=== PATIENT | male | born 1970 | race African-American/Black ===

== ENCOUNTER → 2016-10-01 | Outpatient (CLI) | payer OTHER ==
[2016-10-01 10:37] LABS: Basophils % (A) 1 %; CH 32.3; CHCM 33.5; Eosinophils # (A) 0.1 k/uL (0-0.7); Eosinophils % (A) 4 %; HCT 43.9 % (39.0-53.0); HDW 2.64; HGB 14.8 gm/dL (13.0-17.5); Luc # (Auto) 0.11; Luc % (Auto) 3; Lymphocytes # (A) 1.4 k/uL (1.0-4.8); Lymphocytes % (A) 37 %; MCH 32.6 pg (25.0-35.0); MCHC 33.6 g/dL (31.0-37.0); MCV 97.1 fL (80.0-100.0); Mean Platelet Volume 7.1; Monocytes # (A) 0.3 k/uL (0-1.0); Monocytes % (A) 7 %; Neutrophils # (A) 1.9 k/uL (1.3-7.7); Neutrophils % (A) 48 %; RBC 4.53 m/uL (4.30-5.90); RDW 13.1 % (11.5-15.5); WBC 3.8 k/uL (3.8-10.6); WBC (Perox) 3.98
[2016-10-01 11:49] LABS: ALT 31 U/L (21-72); AST 20 U/L (17-59); Alkaline Phosphatase 81 U/L (38-126); Anion Gap 6 mmol/L; Blood Urea Nitrogen 15 mg/dL (9-20); Calcium 9.3 mg/dL (8.4-10.2); Carbon Dioxide 24 mmol/L (22-30); Chloride 106 mmol/L (98-107); Glucose 98 mg/dL (74-99); Non-African American GFR(MDRD) >60 (>60 ml/min/1.73 sqM); Potassium 4.2 mmol/L (3.5-5.1); Sodium 136 mmol/L (137-145); Total Bilirubin 0.5 mg/dL (0.2-1.3); Total Protein 5.9 g/dL (6.3-8.2)
== END ==
LOC: LABWHC1 10:08
PROVIDERS: ATTEND Psychiatry & Neurology Neurology
DX: E55.9 Vitamin D deficiency, unspecified (principal); R53.83 Other fatigue; R41.3 Other amnesia
CPT/HCPCS: 36415; 80053; 82306; 84439; 84443; 84481; 85025

== ENCOUNTER → 2016-10-17 | Outpatient (CLI) | payer OTHER ==
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
== END | disposition home or self-care (01) ==
LOC: RADMRIMAIN 06:59
PROVIDERS: ATTEND Nurse Practitioner Acute Care
DX: M48.02 Spinal stenosis, cervical region (principal); M99.71 Connective tissue and disc stenosis of intervertebral foramina of cervical region; M47.812 Spondylosis without myelopathy or radiculopathy, cervical region; M46.82 Other specified inflammatory spondylopathies, cervical region
CPT/HCPCS: 72141

== ENCOUNTER → 2016-10-25 | Outpatient (CLI) | payer OTHER ==
--- NOTE | 2016-10-25 13:59 | MR ---
EXAMINATION TYPE: MR lumbar spine wo con DATE OF EXAM: 10/25/2016 1:44 PM COMPARISON: May 19, 2015 HISTORY: lumbago Multiplanar, MultiSpin echo imaging of the lumbar spine was performed. L1-L2: Normal disc appearance without desiccation. No herniation, protrusion or disc bulging. No ca nal stenosis is present. Foramina are patent bilaterally. L2-L3: Normal disc appearance without desiccation. No herniation, protrusion or disc bulging. No ca nal stenosis is present. Foramina are patent bilaterally. L3-L4: Normal disc appearance without desiccation. No herniation, protrusion or disc bulging. No ca nal stenosis is present. Foramina are patent bilaterally. L4-L5: Normal disc appearance without desiccation. No herniation, protrusion or disc bulging. No ca nal stenosis is present. Foramina are patent bilaterally. L5-S1: Normal disc appearance without desiccation. No herniation, protrusion or disc bulging. No ca nal stenosis is present. Foramina are patent bilaterally. Lumbar segments are intact. No paraspinal masses are identified. Conus medullaris has a normal appe arance. IMPRESSION: 1. Unremarkable MRI of the lumbar spine.
== END | disposition home or self-care (01) ==
LOC: RADMRIMAIN 13:04
PROVIDERS: ATTEND Nurse Practitioner Acute Care
DX: M54.5 Low back pain (principal); M54.2 Cervicalgia; Z88.0 Allergy status to penicillin; Z88.1 Allergy status to other antibiotic agents; Z91.013 Allergy to seafood; Z88.5 Allergy status to narcotic agent; Z88.6 Allergy status to analgesic agent; Z88.8 Allergy status to other drugs, medicaments and biological substances
CPT/HCPCS: 72148

== ENCOUNTER 2016-10-30 09:41 | Emergency (ER) | payer OTHER ==
[2016-10-30 09:50] VITALS: BP 120/76; PULSE 88; RESP 16; TEMP 99.7
[2016-10-30] MEDS ORDERED: LIDOCAINE VISCOUS 2% 15 ML CUP MUCOUS MEM ONE (09:58)
--- NOTE | 2016-10-30 10:58 | ED ---
General Adult HPI - General Chief complaint: Allergic Reaction Stated complaint: allergic reaction Time Seen by Provider: 10/30/16 09:54 Source: patient, RN notes reviewed Mode of arrival: ambulatory Limitations: no limitations - History of Present Illness Initial comments: 36-year-old male presents emergency room chief complaint of sore throat. Patient states that this started today. Patient stated very tender. Patient states swelling seems to make it worse. Patient states he has had a low-grade fever. Patient states he started clinic yesterday due to his severely abscess to the cath removed. Patient states he was concerned due to his worsening pains without that he should be evaluated.Patient denies any recent shortness of breath, chest pain, back pain, abdominal pain, nausea vomiting, numbness or tingling, dysuria or hematuria, constipation or diarrhea, headaches or visual changes, or any other current symptoms. - Related Data Home Medications Medication Instructions Recorded Confirmed Ergocalciferol [Vitamin D2 50,000 unit PO MO 10/30/16 10/30/16 (DRISDOL)] Topiramate 50 mg PO BID 10/30/16 10/30/16 clonazePAM [KlonoPIN] 1 mg PO BID 10/30/16 10/30/16 Previous Rx's Medication Instructions Recorded Polyethylene Glycol 3350 [Miralax] 17 gm PO DAILY PRN 20 Days 06/13/15 oxyCODONE HCL 15 mg PO Q8HR PRN #20 tab 06/17/15 Ibuprofen [Motrin] 600 mg PO Q6HR PRN #20 tab 10/30/16 Lidocaine Viscous 2% [Xylocaine 10 ml MUCOUS MEM BID 5 Days 10/30/16 Viscous] Allergies Allergy/AdvReac Type Severity Reaction Status Date / Time acetaminophen [From Vicodin] Allergy Unknown Verified 10/30/16 10:19 aspirin Allergy Swelling Verified 10/30/16 10:19 erythromycin base Allergy Nausea & Verified 10/30/16 10:19 Vomiting. ABD PAIN. fish oil Allergy RASH IN Verified 10/30/16 10:19 MOUTH, FELT LIKE HIS WAS ITCHING "INTERNALLY" hydrocodone bitartrate Allergy Unknown Verified 10/30/16 10:19 [From Vicodin] Penicillins Allergy Rash/Hives Verified 10/30/16 10:19 pregabalin [From Lyrica] Allergy Unknown Verified 10/30/16 10:19 lactose AdvReac Vomiting Verified 10/30/16 10:19 meloxicam [From Mobic] AdvReac Nausea Verified 10/30/16 10:19 Review of Systems ROS Statement: Those systems with pertinent positive or pertinent negative responses have been documented in the HPI. ROS Other: All systems not noted in ROS Statement are negative. Past Medical History Additional Past Medical History / Comment(s): chronic back, neck, hip pain History of Any Multi-Drug Resistant Organisms: None Reported Past Surgical History: Hernia Repair Additional Past Surgical History / Comment(s): achilles tendon, "cyst on tailbone" Past Psychological History: Depression Smoking Status: Current every day smoker Past Alcohol Use History: None Reported Past Drug Use History: Marijuana Additional Drug Use History / Comment(s): uses medical marijuana everyday General Exam - General Exam Comments Initial Comments: General exam: Alert, active, comfortable in no apparent distress Head: Normocephalic Eyes: Normal reaction of pupils, equal size, normal range of extraocular motion Ears: normal external ear canals, pink tympanic membranes with normal cone of light Nose: clear with pink turbinates Throat: Erythema with exudate with normal sized tonsils Neck: no masses, no nuchal rigidity Chest: no chest wall deformity Lungs: equal air entry with no crackles or wheeze CVS: S1 and S2 normal with no audible mumurs, regular rhythm Abdomen: no hepatosplenomegaly, normal bowel sounds, no guarding or rigidity Spine: no scoliosis or deformity Skin: no rashes Neurological: No focal deficits, tone is normal in all 4 extremities Limitations: no limitations Course Vital Signs 10/30/16 09:45 Temperature 99.7 F H Pulse Rate 88 Respiratory 16 Rate Blood Pressure 120/76 O2 Sat by Pulse 98 Oximetry Medical Decision Making - Medical Decision Making 46-year-old male presents to the emergency department with a chief complaint of sore throat. At this time the patient does appear to have erythema with exudate. Strep is negative. He is currently on Clinda. We discussed need to continue the Clinda. We will give him viscous lidocaine and Motrin. We discussed follow-up return parameters all patient's questions. He stated he understood reasons Plan. He will be discharged home. - Lab Data Lab Results 10/30/16 Range/Units 09:55 Group A Strep Rapid Negative (Negative) Disposition Clinical Impression: Acute pharyngitis Disposition: HOME SELF-CARE Condition: Stable Instructions: Pharyngitis (ED) Additional Instructions: Please use medication as discussed. Please follow up with family doctor if symptoms have not improved over the next two days. Please return to the emergency room if your symptoms increase or worsen or for any other concerns. Prescriptions: Ibuprofen [Motrin] 600 mg PO Q6HR PRN #20 tab PRN Reason: Pain Lidocaine Viscous 2% [Xylocaine Viscous] 10 ml MUCOUS MEM BID 5 Days Referrals: Lesly Flores MD [STAFF PHYSICIAN] - 1-2 days Time of Disposition: 10:57
== END 2016-10-30 11:12 | disposition home or self-care (01) ==
LOC: EC 09:41
DX: J02.9 Acute pharyngitis, unspecified (principal); F17.200 Nicotine dependence, unspecified, uncomplicated; Z88.5 Allergy status to narcotic agent; Z88.6 Allergy status to analgesic agent; Z88.2 Allergy status to sulfonamides; Z88.0 Allergy status to penicillin; Z91.011 Allergy to milk products; Z88.8 Allergy status to other drugs, medicaments and biological substances; Z91.048 Other nonmedicinal substance allergy status; Z79.899 Other long term (current) drug therapy
CPT/HCPCS: 87081; 87430; 99283

== ENCOUNTER → 2017-01-14 | Outpatient (CLI) | payer OTHER | LOC: LABWHC1 12:07 | PROVIDERS: ATTEND Nurse Practitioner Acute Care | DX: E55.9 Vitamin D deficiency, unspecified (principal) | CPT/HCPCS: 36415; 82306 ==

== ENCOUNTER → 2017-02-16 | Outpatient (CLI) | payer OTHER ==
[2017-02-16 15:51] LABS: Basophils % (A) 0 %; CHCM 33.7; Eosinophils # (A) 0.1 k/uL (0-0.7); Eosinophils % (A) 1 %; HCT 51.7 % (39.0-53.0); HDW 2.54; HGB 17.1 gm/dL (13.0-17.5); Luc # (Auto) 0.04; Luc % (Auto) 0; Lymphocytes # (A) 0.6 k/uL (1.0-4.8); Lymphocytes % (A) 6 %; MCH 32.5 pg (25.0-35.0); MCHC 33.1 g/dL (31.0-37.0); MCV 98.3 fL (80.0-100.0); Mean Platelet Volume 8.6; Monocytes # (A) 0.1 k/uL (0-1.0); Monocytes % (A) 1 %; Neutrophils # (A) 9.1 k/uL (1.3-7.7); Neutrophils % (A) 92 %; RBC 5.26 m/uL (4.30-5.90); RDW 14.1 % (11.5-15.5); WBC 9.9 k/uL (3.8-10.6); WBC (Perox) 9.65
[2017-02-16 16:03] LABS: ALT 37 U/L (21-72); AST 19 U/L (17-59); Alkaline Phosphatase 87 U/L (38-126); Anion Gap 9 mmol/L; Blood Urea Nitrogen 14 mg/dL (9-20); Calcium 10.4 mg/dL (8.4-10.2); Carbon Dioxide 23 mmol/L (22-30); Chloride 107 mmol/L (98-107); Cholesterol 202 mg/dL (<200); Glucose 124 mg/dL (74-99); HDL Cholesterol 77 mg/dL (40-60); Non-African American GFR(MDRD) >60 (>60 ml/min/1.73 sqM); Potassium 4.9 mmol/L (3.5-5.1); Sodium 139 mmol/L (137-145); Total Bilirubin 0.7 mg/dL (0.2-1.3)
[2017-02-16 16:51] LABS: Vitamin B12 464 pg/mL (239-931)
== END | disposition home or self-care (01) ==
LOC: LABWHC1 15:07
PROVIDERS: ATTEND Family Medicine
DX: Z00.00 Encounter for general adult medical examination without abnormal findings (principal); H00.012 Hordeolum externum right lower eyelid; F41.8 Other specified anxiety disorders; E55.9 Vitamin D deficiency, unspecified; R10.31 Right lower quadrant pain
CPT/HCPCS: 36415; 80053; 80061; 82306; 82607; 83036; 84443; 85025

== ENCOUNTER → 2017-02-21 | Outpatient (CLI) | payer OTHER ==
--- NOTE | 2017-02-21 15:36 | US ---
EXAMINATION TYPE: US groin extremity RT DATE OF EXAM: 02/21/2017 COMPARISON: CT abdomen pelvis May 28, 2015 CLINICAL HISTORY: R10.31 RLQ PAIN. RLQ pain radiating to right leg and scrotal sac since right inguin al hernia repair end of 2014. At right groin no hernia is seen. At right scrotal sac, at another area of pain, a small hydrocele is noted = 2.8 x 1.6 x 1.3cm. Couple of right groin lymph nodes are noted with larger =1.2 x 0.8 x 0.5 cm. IMPRESSION: No suspicious recurrent bowel or fat-containing right inguinal hernia is seen. Technolog ist alcantara a few prominent but benign-appearing lymph nodes in the right groin. A small right scrotal fluid collection or hydrocele is incidentally marked by technologist towards the end of study.
== END | disposition home or self-care (01) ==
LOC: RADUSWWP 14:32
PROVIDERS: ATTEND Family Medicine
DX: R10.31 Right lower quadrant pain (principal); Z87.19 Personal history of other diseases of the digestive system

== ENCOUNTER → 2017-06-26 | Outpatient (CLI) | payer OTHER ==
[2017-06-22 12:50] VITALS: BMI 25.1
[2017-06-26 12:53] VITALS: BP 107/76; PULSE 71; RESP 16; TEMP 97.7
--- NOTE | 2017-06-26 13:37 | P.CONS ---
History of Present Illness - Reason for Consult Consult date: 06/26/17 - History of Present Illness This is 46 years old male with a chronic history of severe right groin pain and right testicular pain, started a few days after he had right-sided robotic- assisted ingrown hernia repair, he reported that the pain after the surgery was constant localized in the right groin area and radiated to the right testicle, he denies any fever or night sweats he denies any discharge or swelling in the right groin area, he denies any motor or sensory deficits, the right hernia repair was done in May 2015, and patient had MRI of the lumbar spine done in in 2015 , which was negative for any abnormalities Past Medical History Additional Past Medical History / Comment(s): chronic back, neck, hip pain. Right Groin pain post hernia repair. History of Any Multi-Drug Resistant Organisms: None Reported Past Surgical History: Hernia Repair Additional Past Surgical History / Comment(s): achilles tendon, "cyst on tailbone" epidural pain shots with Dr Lei Past Anesthesia/Blood Transfusion Reactions: No Reported Reaction Smoking Status: Current every day smoker - Past Family History Mother Family Medical History: No Reported History Medications and Allergies Home Medications Medication Instructions Recorded Confirmed Type Polyethylene Glycol 3350 [Miralax] 17 gm PO DAILY PRN 20 Days packet 06/13/15 06/26/17 Rx Topiramate 50 mg PO BID 10/30/16 06/26/17 History clonazePAM [KlonoPIN] 1 mg PO BID 10/30/16 06/26/17 History Cholecalciferol (Vitamin D3) 2,000 unit PO DAILY 06/22/17 06/26/17 History [Vitamin D3] Gabapentin [Neurontin] 100 mg PO BID 06/26/17 06/26/17 History oxyCODONE HCL 15 mg PO BID 06/26/17 06/26/17 History Allergies Allergy/AdvReac Type Severity Reaction Status Date / Time acetaminophen [From Vicodin] Allergy Unknown Verified 06/26/17 12:45 aspirin Allergy Swelling Verified 06/26/17 12:45 clindamycin Allergy "burned Verified 06/26/17 12:45 stomach" erythromycin base Allergy Nausea & Verified 06/26/17 12:45 Vomiting. ABD PAIN. fish oil Allergy RASH IN Verified 06/26/17 12:45 MOUTH, FELT LIKE HIS WAS ITCHING "INTERNALLY" hydrocodone bitartrate Allergy Unknown Verified 06/26/17 12:45 [From Vicodin] Penicillins Allergy Rash/Hives Verified 06/26/17 12:45 pregabalin [From Lyrica] Allergy throat Verified 06/26/17 12:45 swelling lactose AdvReac Vomiting Verified 06/26/17 12:45 meloxicam [From Mobic] AdvReac Nausea Verified 06/26/17 12:45 Physical Exam Vitals: Vital Signs Temp Pulse Resp BP Pulse Ox 06/26/17 12:47 97.7 F 71 16 107/76 97 Social history : smoker , NO ETOH , use marijuana. Review of Systems : 1- Constitutional : no chills , no fever , no night sweats , 2- Ears : no ear discharge , no change in hearing 3-Nose, Mouth ,Throat ; no bleeding gums, no sore throat , no epistaxis , 4-Cardiovascular : Denies chest pain, , no orthopnea , no palpitation 5-Respiratory : Denies cough , no dyspnea , no hemoptysis 6-Gastrointestinal :, no change in bowel habits , no coffee- ground emesis . 7-Genitourinary : No hematuria , no discharge , no incontinence, 8-Musculoskeletal : No gait dysfunction , report low back pain , 9- Neurological : no ataxia , no tremor , no sezure , 10-Psychatric , no suicidal ideation no hallucination 11- Endocrine : no cold intolerence , no polyuria , no polydypsia , 12-Hematologic : no easy bleeding , no easy brusing , 13-Allergic / immunology : no angioedema , no wheezing ,no allergic rhinitis 14-Integumentary : no brttle nails , no change hair / nails , no foot/leg ulcers . Physical Examinations : 1-Constitutional : Cooperative , not in acute distress . 2-HEENT : nech ; supple , no Lymphadenopathy , no Thyromegaly , :eyes , no icterus, no photophobia . ENT : , normal oropharynx , no Thrush 3- Respiratory : Chest clear to auscultations Bilaterally , no wheezing . 4- Cardiovascular : regular rate and rhythem , S1 , S2 , no S3 , no S4. 5- Gastrointestinal: abdomen soft no tenderness , no organomegally . 6- Genitourinary : Positive allodynia and dysesthesia in the right groin and testicular area all the incisions from the right hernia surgery.healed Appropriately, and there is no sign of infection, or discharge 7-Integumentary : No cellulitis , no ulcers , normal skin turgor , no cyanotic . 8- neurologic : Cranial nerve II to XII intact , no focal neurological deffecit 9-psychatric : alert , oriented X 3 , appropriate affect , intact judgment and insight . 10-Lymphatic : no Lymphadenopathy. 11- musculoskeltal: normal gait Lumber spine moter stegnth lower extremities ,thigh and legs 5/5 Right side , 5/5 Left side deep tendon reflexes : normal Knee Jerk , normal ankle Jerk Range of motion of the lumbar spine Flexion 60 degrees, extension 30 degrees strait leg raising test , negative Fabere test negative Results Comments: The lumbar spine done 2015 was negative for any abnormalities Assessment and Plan Plan: Assessment and plan= right ilioinguinal neuralgia ,and right genitofemoral neuralgia Patient could benefit from Neurontin 100 mg twice a day ,could be increased as tolerated, he shouldn't have the energy to Lyrica but he never used Neurontin, Also patient could benefit from ,right side genitofemoral, and right-sided ilioinguinal nerve block ,under ultrasound guidance Procedure risk and benefits and alternatives discussed with, the patient and he agreed ,with proceeding Patient should continue to use, his pain medication oxycodone 15 mg every 6 hours ,he is getting prescription ,from his primary care Time with Patient: Greater than 30
== END | disposition home or self-care (01) ==
LOC: PNWHC3 12:22
PROVIDERS: ATTEND Specialist
DX: G57.81 Other specified mononeuropathies of right lower limb (principal); G58.8 Other specified mononeuropathies; G89.29 Other chronic pain; M54.9 Dorsalgia, unspecified; M54.2 Cervicalgia; M25.559 Pain in unspecified hip; Z98.890 Other specified postprocedural states; Z87.891 Personal history of nicotine dependence
CPT/HCPCS: 99211

== ENCOUNTER 2017-07-24 06:28 | Day surgery (SDC) | payer OTHER ==
[2017-07-14 09:33] VITALS: BMI 25.1
[~2017-07-24 06:28] MED LIST: LACTATED RINGERS 1,000 ML IV ONE
[2017-07-24 06:51] VITALS: RESP 16; TEMP 97.5
[2017-07-24] MEDS ORDERED: LIDOCAINE 1% 20 ML VIAL (10MG/ML) FOR IV START INTRADERMA ONE (07:00)
[2017-07-24] MEDS ORDERED: IV FLUID CONTINUATION 1,000 ML IV ONE ×2 (07:42)
--- NOTE | 2017-07-24 07:43 | P.PCN ---
Date of Procedure: 07/24/17 Preoperative Diagnosis: Rt Ilioinguinal and genitofemoral neuralgia status post right herniorrhaphy Postoperative Diagnosis: Same as above Procedure(s) Performed: Right ilioinguinal, and genitofemoral nerve block with ultrasound guidance Anesthesia: MAC (Moderate conscious sedation with IV fentanyl and Versed) Surgeon: Michelle Isbell Pathology: none sent Condition: stable Disposition: PACU Description of Procedure: The patient was seen in the preoperative holding area consent was obtained then he was brought into the procedure room and placed in the supine position. Ultrasound machine was used to identify the anatomy on the right side of the abdomen above the ASIS and slightly medial to it. The level between the internal oblique muscle and the transverse abdominal muscle was identified with ultrasound and even the ilioinguinal and iliohypogastric nerves were seen. The color Doppler was applied to avoid any vessels in the area then I used 25-gauge 3-1/2 inch Quincke spinal needle needle to go through the skin after localizing the skin with 1% of lidocaine and to inject 5 MLS of Marcaine 0.5% +20 mg of Kenalog and the level between the internal abdominal muscle and the transversus abdominis muscle patient and the transversus abdominis muscle downwards and avoiding any vessels and of course superficial to the transverse abdominis muscle and the bowel. After that I turned my attention into doing that genitofemoral nerve block by palpating the right pubic tubercle, then using 1-1/2 inch 22-gauge needle and going perpendicular to the skin and after touching the bone of the pubic tubercle the needle was withdrawn by 1 or 2 mm and then I injected 5 MLS of Marcaine 0.5%. The patient tolerated procedure well and he was taken to PACU in stable condition.
[2017-07-24 08:12] VITALS: BP 113/72; PULSE 53
== END 2017-07-24 08:28 | disposition home or self-care (01) ==
LOC: ORPAIN 06:28
PROVIDERS: ATTEND Anesthesiology
DX: G58.8 Other specified mononeuropathies (principal); G89.29 Other chronic pain; F17.200 Nicotine dependence, unspecified, uncomplicated; Z88.1 Allergy status to other antibiotic agents; Z88.0 Allergy status to penicillin; Z88.6 Allergy status to analgesic agent; Z88.5 Allergy status to narcotic agent; Z88.8 Allergy status to other drugs, medicaments and biological substances; Z79.899 Other long term (current) drug therapy; Z79.891 Long term (current) use of opiate analgesic
CPT/HCPCS: 64450; 64425; J2250; J3301; J2001; J3010; 99152

== ENCOUNTER 2017-08-17 20:49 | Emergency (ER) | payer OTHER ==
[2017-08-17 21:07] VITALS: TEMP 98.1
[2017-08-17] MEDS ORDERED: diphenhydrAMINE 50 MG/ML 1 ML VIAL IVP STA (22:09)
[2017-08-17] MEDS ORDERED: SODIUM CHLORIDE 0.9% 1,000 ML IV STA ×2 (22:09)
[2017-08-17 22:19] LABS: Amphetamine Screen,Urine Not Detected (NotDetected); Barbiturate Screen,Urine Not Detected (NotDetected); Benzodiazepines Screen,Urine Not Detected (NotDetected); Cocaine Screen,Urine Not Detected (NotDetected); Methadone Screen, Urine Not Detected (NotDetected); Opiate Screen,Urine Not Detected (NotDetected); Oxycodone Screen, Urine Detected (NotDetected); Phencyclidine Screen,Urine Not Detected (NotDetected); Tricyclic Antidepressant,Urine Not Detected (NotDetected); Urn Cannabinoid Scrn Detected (NotDetected)
[2017-08-17 22:26] LABS: Appearance,Urine Clear (Clear); Bilirubin,Urine Negative (Negative); Blood,Urine Negative (Negative); Color,Urine Yellow; Glucose,Urine (UA) Trace (Negative); Ketones,Urine Trace (Negative); Leukocyte Esterase,Urine Negative (Negative); Protein,Urine Trace (Negative)
[2017-08-17 22:29] LABS: Basophils % (A) 0 %; Eosinophils # (A) 0.1 k/uL (0-0.7); Eosinophils % (A) 2 %; HCT 43.7 % (39.0-53.0); Lymphocytes % (A) 16 %; MCH 32.2 pg (25.0-35.0); MCHC 34.3 g/dL (31.0-37.0); MCV 93.7 fL (80.0-100.0); Mean Platelet Volume 7.6; Monocytes # (A) 0.3 k/uL (0-1.0); Monocytes % (A) 5 %; Neutrophils # (A) 4.9 k/uL (1.3-7.7); Neutrophils % (A) 76 %; Platelet Count 220 k/uL (150-450); RBC 4.67 m/uL (4.30-5.90); RDW 12.1 % (11.5-15.5); WBC 6.4 k/uL (3.8-10.6)
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
[2017-08-17 22:40] LABS: ALT 25 U/L (21-72); AST 20 U/L (17-59); Acetaminophen <10.0 ug/mL; Albumin 3.8 g/dL (3.5-5.0); Alcohol <10 mg/dL; Alkaline Phosphatase 77 U/L (38-126); Anion Gap 8 mmol/L; Blood Urea Nitrogen 14 mg/dL (9-20); Calcium 9.4 mg/dL (8.4-10.2); Carbon Dioxide 25 mmol/L (22-30); Chloride 104 mmol/L (98-107); Glucose 227 mg/dL (74-99); Phosphorus 3.5 mg/dL (2.5-4.5); Salicylate <1.0 mg/dL; Sodium 137 mmol/L (137-145); Total Bilirubin 0.3 mg/dL (0.2-1.3)
--- NOTE | 2017-08-17 22:47 | CT ---
EXAMINATION TYPE: CT brain wo con DATE OF EXAM: 08/17/2017 COMPARISON: 12/19/2013 HISTORY: Altered mental status CT DLP: 1010.5 mGycm. Automated Exposure Control for Dose Reduction was Utilized. TECHNIQUE: CT scan of the head is performed without contrast. FINDINGS: Ventricles and sulci appear normal. There is no mass effect nor midline shift. There is n o sign of intracranial hemorrhage. The calvarium is intact. CONCLUSION: Normal unenhanced head CT scan. No change.
[2017-08-18] MEDS ORDERED: NICOTINE 21MG/24HR PATCH TRANSDERM STA (01:09)
[2017-08-18] MEDS ORDERED: LORazepam 2 MG/ML INJ IV STA (05:13)
[2017-08-18 08:27] VITALS: BP 117/65; PULSE 82; RESP 62
== END 2017-08-18 08:35 ==
LOC: EC 20:49
DX: F23 Brief psychotic disorder (principal); M79.7 Fibromyalgia; M19.90 Unspecified osteoarthritis, unspecified site; F32.9 Major depressive disorder, single episode, unspecified; M47.9 Spondylosis, unspecified; M48.00 Spinal stenosis, site unspecified; F17.200 Nicotine dependence, unspecified, uncomplicated; Z87.820 Personal history of traumatic brain injury; Z79.891 Long term (current) use of opiate analgesic; Z79.899 Other long term (current) drug therapy; Z88.6 Allergy status to analgesic agent; Z88.1 Allergy status to other antibiotic agents; Z91.013 Allergy to seafood; Z88.5 Allergy status to narcotic agent; Z88.8 Allergy status to other drugs, medicaments and biological substances; Z91.011 Allergy to milk products
CPT/HCPCS: 99285; 96374; 96375; 96361; 82075; 36415; 80053; 82140; 83735; 84100; 85025; 81003; 80306; 83520 ×2; 80320; 70450; S4990; J2060; J1200

== ENCOUNTER → 2017-09-18 | Outpatient (CLI) | payer OTHER ==
[2017-09-18 13:19] VITALS: BP 123/62; PULSE 75; RESP 16
--- NOTE | 2017-09-18 14:19 | P.PAINPG ---
Subjective Progress Note Date: 09/18/17 This is 46 years old male with a chronic history of severe right groin pain and right testicular pain, started a few days after he had right-sided robotic- assisted inguinal hernia repair, he reported that the pain after the surgery was constant localized in the right groin area and radiated to the right testicle, he denies any fever or night sweats he denies any discharge or swelling in the right groin area, he denies any motor or sensory deficits, the right hernia repair was done in May 2015, and patient had MRI of the lumbar spine done in in 2015 , which was negative for any abnormalities. s/p ilioinguinal NB 1 month ago and had 30-40% relief for 2 weeks. States there was some rebound worsening of his pain the groin once the medication wore off. He states that the pain is debilitating and 9/10 in severity. Describes it as constant, sharp, stabbing, and radiates into testicles periodically. Tried and failed neurontin 2/2 excess N/V. Does not want to start a TCA. Discussed repeat nerve block and patient agrees to proceed. Also discussed DRG if patient does not receive mcfp relief from nerve blocks. Is Rx oxycodone from PCP, and advised him that opiates are not ideal therapy for neuralgia type pain. Physical Examinations : 1-Constitutional Cooperative , not in acute distress . 2-HEENT neck ; supple , no Lymphadenopathy , no Thyromegaly 3- Respiratory Chest clear to auscultations Bilaterally . 4- Cardiovascular regular rate and rhythem 5- Gastrointestinal abdomen soft no tenderness , no organomegally 6- Genitourinary : Positive allodynia and dysesthesia in the right groin and testicular area all the incisions from the right hernia surgery healed no sign of infection, or discharge 7- neurologic Cranial nerve II to XII intact , no focal neurological deffecit 8-psychatric alert , oriented X 3 , appropriate affect , intact judgment and insight . 9- musculoskeletal Lumber spine moter stegnth lower extremities ,thigh and legs 5/5 Right side , 5/5 Left side deep tendon reflexes : normal Knee Jerk , normal ankle Jerk Range of motion of the lumbar spine Flexion 60 degrees, extension 30 degrees strait leg raising test , negative Fabere test negative Plan: 1. No medications Rx from clinic 2. MAPs approp. with pt hx 3. Ilioinguinal Nerve block in 2-4 weeks. Objective - Vital Signs Vital signs: Vital Signs Temp Pulse 75 09/18/17 13:11 Resp 16 09/18/17 13:11 BP 123/62 09/18/17 13:11 Pulse Ox Intake & Output 09/17/17 09/18/17 09/18/17 18:59 06:59 18:59 Weight 81.647 kg PQRS Measure Charge Sheet Measure #130: Documentation of Current Meds in Medical Chart: Patient's medications documented in chart Measure #226: Tobacco Use: Screen & Cessation Intervention: Pt screened for tobacco use AND intervention given Measure #111: Pneumonia Vaccination: Pneumococcal vaccine NOT administered or previously given Measure #47: Advance Care Plan: Advance care planning discussed & documented, pt chose/unable to give Measure #317: Preventitive Care & Scrn High Bld Press & F/U: Normal blood pressure, f/u not required Measure #128: Body Mass Index (BMI) Screening & Follow-up: BMI documented within normal parameters Measure #131: Pain Assessment & Follow-up: Pain positive & plan documented Measure #431: Unhealthy Alcohol Use Preventative Care & Scrn: Patient not identified as an unhealthy alcohol user PQRS Narrative: Smoking Status Current every day smoker Do You Want the Pneumonia No Vaccine AT THIS TIME? Blood Pressure 123/62 Pain Intensity [Right Groin] 6 Scale Used Numeric (1 - 10) Hx Alcohol Use (MH) Yes: RARE. Home Medications: Ambulatory Orders Topiramate 50 mg PO BID 10/30/16 oxyCODONE HCL 15 mg PO BID 06/26/17
== END | disposition home or self-care (01) ==
LOC: PNWHC3 13:00
PROVIDERS: ATTEND Anesthesiology
DX: G89.29 Other chronic pain (principal); R10.30 Lower abdominal pain, unspecified; N50.811 Right testicular pain; F17.200 Nicotine dependence, unspecified, uncomplicated; Z79.891 Long term (current) use of opiate analgesic; Z79.899 Other long term (current) drug therapy
CPT/HCPCS: 99211

== ENCOUNTER 2017-09-26 08:46 | Day surgery (SDC) | payer OTHER ==
[2017-09-20 16:05] VITALS: BMI 25.1
[2017-09-26 08:58] VITALS: RESP 18; TEMP 97.9
[2017-09-26] MEDS ORDERED: LIDOCAINE 1% 20 ML VIAL (10MG/ML) FOR IV START INTRADERMA ONE (08:58)
[2017-09-26] MEDS ORDERED: LACTATED RINGERS 1,000 ML IV ONE (08:58)
[2017-09-26] MEDS ORDERED: LACTATED RINGERS 1,000 ML IV SCH (10:15)
[2017-09-26 10:34] VITALS: BP 115/81; PULSE 64
[2017-09-26] MEDS ORDERED: IV FLUID CONTINUATION 1,000 ML IV ONE (10:34)
--- NOTE | 2017-09-26 10:56 | P.PCN ---
Date of Procedure: 09/26/17 Surgeon: Yoni Barbosa Pathology: none sent Condition: stable Disposition: PACU Description of Procedure: PROCEDURE: Ultrasound guided Right ilioinguinal nerve block. PREOPERATIVE DIAGNOSIS: 1- Right ilioinguinal neuralgia. POSTOPERATIVE DIAGNOSIS: 1- Right ilioinguinal neuralgia. ANESTHESIA: Local anesthesia + IV sedation EBL: None. PROCEDURE INDICATION: History of pain in the right groin pain secondary to ilioinguinal neuralgia unresponsive to more conservative treatment measure. Ultrasound was used to verify needle position and maximize safety. No use of blood thinners. PROCEDURE DESCRIPTION: The patient was seen and identified in the preoperative area. Risks, benefits, complications, and alternatives were discussed with the patient, with risks including but not limited to bleeding, infection, nerve damage, incomplete pain relief, and allergic reactions to medications. The patient agreed to proceed with the procedure and signed the consent. IV was started, and vital signs were stable. Patient was taken to the OR and time out was completed. Using ultrasound the ASIS and different abdominal wall layers, the external oblique, the internal oblique, and the transversus abdominus were identified. Subsquently, a 3-1/2-inch 22 gauge spinal needle was advanced under direct ultrasound guidance to the layer between the internal oblique and the transversus abdominus which corresponds to the block site of the ilioinguinal nerve. Subsequently, and after negative aspiration of air and blood, 12 mL of a block solution containing Kenalog 40 mg and 11 mL of 0.25% preservative-free bupivacaine, was injected under direct ultrasound guidance. Needle was then removed intact. Skin was cleansed and bandages were applied. There were no complications. DISPOSITION / PLANS: The patient was placed in a supine position and transferred to the recovery area in a stable condition for observation and was discharged from the recovery room after meeting discharge criteria. Home discharge instructions given to the patient by the staff. The patient was reexamined prior to discharge. The patient will schedule a repeat injection in approximately 4 weeks.
== END 2017-09-26 10:38 | disposition home or self-care (01) ==
LOC: ORPAIN 08:46
PROVIDERS: ATTEND Anesthesiology
DX: G89.29 Other chronic pain (principal); G58.8 Other specified mononeuropathies; N50.811 Right testicular pain; Z79.891 Long term (current) use of opiate analgesic
CPT/HCPCS: 64425; J2250; J3301; J3010; 99152

== ENCOUNTER → 2017-10-05 | Outpatient (CLI) | payer OTHER ==
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
== END | disposition home or self-care (01) ==
LOC: RADMRIMAIN 09:36
PROVIDERS: ATTEND Psychiatry & Neurology Neurology
DX: M47.812 Spondylosis without myelopathy or radiculopathy, cervical region (principal); Q76.49 Other congenital malformations of spine, not associated with scoliosis; Z88.0 Allergy status to penicillin; Z88.1 Allergy status to other antibiotic agents; Z88.5 Allergy status to narcotic agent; Z88.6 Allergy status to analgesic agent; Z88.8 Allergy status to other drugs, medicaments and biological substances; Z91.013 Allergy to seafood
CPT/HCPCS: 72141

== ENCOUNTER 2017-10-29 12:54 | Emergency (ER) | payer OTHER ==
[2017-10-29 13:11] VITALS: RESP 18
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
[2017-10-29] MEDS ORDERED: OLANZapine 5 MG TAB PO SCH (14:00)
[2017-10-29 14:23] LABS: Amphetamine Screen,Urine Not Detected (NotDetected); Barbiturate Screen,Urine Not Detected (NotDetected); Benzodiazepines Screen,Urine Not Detected (NotDetected); Cocaine Screen,Urine Not Detected (NotDetected); Methadone Screen, Urine Not Detected (NotDetected); Opiate Screen,Urine Not Detected (NotDetected); Oxycodone Screen, Urine Detected (NotDetected); Phencyclidine Screen,Urine Not Detected (NotDetected); Tricyclic Antidepressant,Urine Not Detected (NotDetected); Urn Cannabinoid Scrn Not Detected (NotDetected)
[2017-10-29 15:58] VITALS: BP 130/81; PULSE 90; TEMP 98
== END 2017-10-29 15:58 | disposition home or self-care (01) ==
LOC: EC 12:54
DX: F25.1 Schizoaffective disorder, depressive type (principal); F29 Unspecified psychosis not due to a substance or known physiological condition; F17.200 Nicotine dependence, unspecified, uncomplicated; M79.7 Fibromyalgia; M19.90 Unspecified osteoarthritis, unspecified site; Z79.891 Long term (current) use of opiate analgesic; Z79.899 Other long term (current) drug therapy; Z88.6 Allergy status to analgesic agent; Z88.1 Allergy status to other antibiotic agents; Z91.013 Allergy to seafood; Z88.5 Allergy status to narcotic agent; Z88.8 Allergy status to other drugs, medicaments and biological substances; Z91.011 Allergy to milk products; Z88.0 Allergy status to penicillin
CPT/HCPCS: 80306; 82075; 99285

== ENCOUNTER 2017-11-27 08:49 | Day surgery (SDC) | payer OTHER ==
[2017-11-22 13:47] VITALS: BMI 25.5
[~2017-11-27 08:49] MED LIST changes: -LACTATED RINGERS 1,000 ML IV ONE; +LACTATED RINGERS 1,000 ML IV SCH
[2017-11-27] MEDS ORDERED: LIDOCAINE 1% 20 ML VIAL (10MG/ML) FOR IV START INTRADERMA ONE (09:35)
[2017-11-27 09:36] VITALS: RESP 16; TEMP 97.3
--- NOTE | 2017-11-27 10:37 | P.PCN ---
Date of Procedure: 11/27/17 Procedure(s) Performed: Preoperative diagnoses= 1-right ilioinguinal neuralgia Postoperative diagnoses= same as preoperative diagnosis. Procedure= Right ilioinguinal nerve block under ultrasound guidance Anesthesia= moderate sedation with Versed 2 mg and fentanyl 100 micrograms and local infiltration with lidocaine 1% 4 ml Estimated blood loss=minimal. Procedure indication= the patient had a history of severe chronic right groin pain secondary to right ilioinguinal neuralgia ,unresponsive to conservative treatment. Procedure description= the patient was seen and identified in the preoperative holding area, risks and benefits and alternative of the procedure and possible complications discussed with the patient, and he agreed with the preceding, patient signed the consent, an IV was started, and vital signs were monitored and were stable throughout the procedure, patient was placed in the supine position or table and the thoracic area with Betadine 3, local infiltration of the skin and subcu interstitial with lidocaine 1% 2 mL, the 20-gauge Pujunk needle, advanced slowly under ultrasound and was located the internal oblique muscle and the transverse abdominis muscles, which is responders to the location of the right ulnar nerve, then after negative aspiration, Ropivacaine 0.5% 9 ml and 40 mg of Kenalog injected after negative aspiration patient tolerated the procedure well without any complications. The patient groin was cleaned and a Band-Aid applied, the patient transported to recovery room in stable condition and he was monitored for 30 minutes before he was discharged home and then patient was reexamined before going home and patient was discharged in stable condition and patient will follow up with the pain clinic in a few weeks
[2017-11-27] MEDS ORDERED: IV FLUID CONTINUATION 1,000 ML IV ONE (10:56)
[2017-11-27 11:34] VITALS: BP 110/68; PULSE 68
== END 2017-11-27 11:06 | disposition home or self-care (01) ==
LOC: ORPAIN 08:49
PROVIDERS: ATTEND Specialist
DX: G58.8 Other specified mononeuropathies (principal)
CPT/HCPCS: 64425; J2250; J3301; J3010; 99152

== ENCOUNTER → 2017-12-21 | Outpatient (CLI) | payer OTHER ==
[2017-12-21 12:16] VITALS: BP 123/83; PULSE 91; RESP 16
--- NOTE | 2017-12-21 12:36 | P.PN ---
Progress Note - Text Progress Note Date: 12/21/17 This is 47 years old male with a history of chronic right groin pain diagnosed with right ilioinguinal neuralgia, with done any ongoing nerve block 3 patient reported that he is pain improved significantly currently his pain is 3 out of 10, patient denies any side effects of the medication he uses oxycodone 15 mg twice a day , is getting prescription refills from his primary care, showed very satisfied with the result of the treatment, he will follow up with the pain clinic when necessary.
== END | disposition home or self-care (01) ==
LOC: PNWHC3 12:00
PROVIDERS: ATTEND Specialist
DX: G89.29 Other chronic pain (principal); R10.31 Right lower quadrant pain; G57.81 Other specified mononeuropathies of right lower limb; Z79.891 Long term (current) use of opiate analgesic
CPT/HCPCS: 99211

== ENCOUNTER → 2018-02-15 | Outpatient (CLI) | payer OTHER ==
[2018-02-15 10:25] LABS: Basophils % (A) 0 %; Eosinophils # (A) 0.1 k/uL (0-0.7); Eosinophils % (A) 0 %; HGB 15.5 gm/dL (13.0-17.5); Lymphocytes # (A) 1.5 k/uL (1.0-4.8); Lymphocytes % (A) 11 %; MCHC 32.9 g/dL (31.0-37.0); MCV 97.2 fL (80.0-100.0); Monocytes # (A) 0.8 k/uL (0-1.0); Monocytes % (A) 6 %; Neutrophils # (A) 11.1 k/uL (1.3-7.7); Neutrophils % (A) 81 %; Platelet Count 255 k/uL (150-450); RBC 4.84 m/uL (4.30-5.90); RDW 13.3 % (11.5-15.5); WBC 13.6 k/uL (3.8-10.6)
[2018-02-15 10:49] LABS: ALT 40 U/L (21-72); AST 23 U/L (17-59); Albumin 4.4 g/dL (3.5-5.0); Alkaline Phosphatase 81 U/L (38-126); Anion Gap 8 mmol/L; Blood Urea Nitrogen 18 mg/dL (9-20); Calcium 9.9 mg/dL (8.4-10.2); Carbon Dioxide 21 mmol/L (22-30); Chloride 110 mmol/L (98-107); Cholesterol 315 mg/dL (<200); Glucose 136 mg/dL (74-99); HDL Cholesterol 73 mg/dL (40-60); LDL Cholesterol,Calculated 223 mg/dL (0-99); Potassium 4.9 mmol/L (3.5-5.1); Sodium 139 mmol/L (137-145); Total Bilirubin 0.5 mg/dL (0.2-1.3); Total Protein 7.1 g/dL (6.3-8.2); Triglycerides 93 mg/dL (<150)
== END | disposition home or self-care (01) ==
LOC: LABWHC1 09:39
PROVIDERS: ATTEND Family Medicine
DX: Z00.00 Encounter for general adult medical examination without abnormal findings (principal); F32.9 Major depressive disorder, single episode, unspecified; E55.9 Vitamin D deficiency, unspecified; R79.89 Other specified abnormal findings of blood chemistry
CPT/HCPCS: 36415; 80053; 80061; 82140; 82306; 82607; 85025

== ENCOUNTER → 2018-07-17 | Outpatient (CLI) | payer OTHER ==
[2018-07-17 17:14] LABS: Albumin 4.1 g/dL (3.80-4.90); Albumin/Globulin Ratio 2.41 (1.60-3.17); Globulin 1.7 g/dL (1.6-3.3); LDL Cholesterol,Calculated 133.6 mg/dL (0.0-131.0); Potassium 4.4 mmol/L (3.5-5.5); Total Bilirubin 0.3 mg/dL (0.3-1.2); Total Protein 5.8 g/dL (6.2-8.2); VLDL Calculation 20.4 mg/dL (5.00-40.00)
[2018-07-17 17:42] LABS: Hemoglobin A1C 7.2 % (4.0-6.0)
== END | disposition home or self-care (01) ==
LOC: LABWHC1 09:04
PROVIDERS: ATTEND Family Medicine
DX: E78.5 Hyperlipidemia, unspecified (principal); E11.9 Type 2 diabetes mellitus without complications
CPT/HCPCS: 36415; 80053; 80061; 82043; 82570; 83036

== ENCOUNTER → 2019-11-13 | Outpatient (CLI) | payer OTHER ==
[2019-11-13 17:24] LABS: African American GFR (CKD) 91.5 (60.0-200.0); Anion Gap 7.4 mmol/L (4.00-12.00); BUN/Creat Ratio 12.73 Ratio (12.00-20.00); Calcium 9.1 mg/dL (8.7-10.3); Carbon Dioxide 24.6 mmol/L (21.6-31.8); Potassium 4.8 mmol/L (3.5-5.5)
[2019-11-13 19:07] LABS: Hemoglobin A1C 6.4 % (4.0-6.0)
== END | disposition home or self-care (01) ==
LOC: LABWHC1 10:52
PROVIDERS: ATTEND Family Medicine
DX: D35.02 Benign neoplasm of left adrenal gland (principal); E11.9 Type 2 diabetes mellitus without complications
CPT/HCPCS: 36415; 80048; 83036; 84403

== ENCOUNTER → 2019-11-22 | Outpatient (CLI) | payer OTHER ==
--- NOTE | 2019-11-25 12:11 | CT ---
EXAMINATION TYPE: CT abdomen pelvis w con DATE OF EXAM: 11/22/2019 COMPARISON: CT abdomen and pelvis May 28, 2015 HISTORY: left adrenal gland adenoma per order. CT DLP: 1192.3 mGycm, Automated Exposure Control for Dose Reduction was Utilized. CONTRAST: CT scan of the abdomen and pelvis is performed without oral and without and with IV Contrast, patient injected with 100 mL of Isovue 300. Adrenal mass protocol. FINDINGS: LUNG BASES: Dependent atelectasis in the bases. LIVER/GB: Liver is diffusely low dense relative to spleen on noncontrast images consistent with diffu se fatty infiltration. Persistent 3.4 x 3.6 cm hypodense lesion in the left hepatic dome with nodular enhancement at 1 minute images and isointensity to the hepatic veins suggesting probable benign scott ngioma. Suboptimally evaluated on this study due to adrenal protocol. Correlate clinically. Other raul ologies not excluded. PANCREAS: No significant abnormality is seen. SPLEEN: No significant abnormality is seen. ADRENALS: Right adrenal gland within normal limits. Persistent 2.1 x 1.4 cm anterior limb left adrena l mass. Hounsfield units average -[address] with enhancement to 35 Hounsfield units of 1 mi nute postcontrast images and washout to 6 Hounsfield units on 15 minute delayed images. Stability of lesion size along with noncontrast and postcontrast are consistent with benign lipid rich adenoma. KIDNEYS: No renal stones. Symmetric cortical medullary uptake and excretion without hydronephrosis s een bilaterally. Scattered phleboliths. BOWEL: No significant abnormality is seen. PROSTATE/SEMINAL VESICLES: No gross abnormality seen. LYMPH NODES: No greater than 1cm abdominal or pelvic lymph nodes are appreciated. OSSEOUS STRUCTURES: No significant abnormality is seen. OTHER: Mild calcified plaque of the aorta extends into iliac branch vessels. Small fat-containing umb ilical hernia. IMPRESSION: Stable sized small 2.1 cm left adrenal mass. Imaging characteristics consistent with fang gn lipid rich adenoma noted.
== END | disposition home or self-care (01) ==
LOC: RADCTMAIN 13:17
PROVIDERS: ATTEND Family Medicine
DX: E27.8 Other specified disorders of adrenal gland (principal)
CPT/HCPCS: 74177; Q9967 ×2

== ENCOUNTER → 2020-10-21 | Outpatient (CLI) | payer OTHER ==
[2020-10-21 08:13] VITALS: BP 122/77; PULSE 78; RESP 18; TEMP 98.1
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
== END ==
LOC: PNWHC3 08:00
PROVIDERS: ATTEND Hospitalist
DX: M54.16 Radiculopathy, lumbar region (principal); G89.29 Other chronic pain
CPT/HCPCS: 99211

== ENCOUNTER 2020-11-10 06:14 | Day surgery (SDC) | payer OTHER ==
[2020-11-06 09:49] VITALS: BMI 31.5
[2020-11-10 06:37] VITALS: RESP 18; TEMP 97.8
[2020-11-10] MEDS ORDERED: LACTATED RINGERS 1,000 ML IV ONE (06:39)
[2020-11-10 06:46] LABS: Glucose,Whole Blood 134 mg/dL (75-99)
[2020-11-10] MEDS ORDERED: fentaNYL (PF) 50 MCG/ML 2 ML AMP ONE (07:01)
[2020-11-10] MEDS ORDERED: methylPREDNISolone ACETATE 40 MG/ML 1 ML VIAL ONE (07:01)
[2020-11-10] MEDS ORDERED: ROPIVACAINE 5MG/ML 20ML VIAL ONE (07:01)
[2020-11-10] MEDS ORDERED: MIDAZOLAM 2 MG/2 ML VIAL ONE (07:01)
--- NOTE | 2020-11-10 07:15 | P.PCN ---
Date of Procedure: 11/10/20 Procedure(s) Performed: Preoperative diagnoses= 1-right ilioinguinal neuralgia Postoperative diagnoses= same as preoperative diagnosis. Procedure= Right ilioinguinal nerve block under ultrasound guidance Anesthesia= moderate sedation with Versed 2 mg and fentanyl 50 micrograms and local infiltration with lidocaine 1% 4 ml Estimated blood loss=minimal. Procedure indication= the patient had a history of severe chronic right groin pain secondary to right ilioinguinal neuralgia ,unresponsive to conservative treatment. Procedure description= the patient was seen and identified in the preoperative holding area, risks and benefits and alternative of the procedure and possible complications discussed with the patient, and he agreed with the preceding, patient signed the consent, an IV was started, and vital signs were monitored and were stable throughout the procedure, patient was placed in the supine position or table and the thoracic area with Betadine 3, local infiltration of the skin and subcu interstitial with lidocaine 1% 2 mL, the 20-gauge Pujunk needle, advanced slowly under ultrasound and was located the internal oblique muscle and the transverse abdominis muscles, which is responders to the location of the right Ilioinguinal nerve, then after negative aspiration, Ropivacaine 0.5% 9 ml and 40 mg of Depo-Medrol injected after negative aspiration patient tolerated the procedure well without any complications. The patient groin was cleaned, and a Band-Aid applied, the patient transported to recovery room in stable condition and he was monitored for 30 minutes before he was discharged home ,and then patient was reexamined before going home and patient was discharged in stable condition and patient will follow up with the pain clinic in a few weeks
[2020-11-10] MEDS ORDERED: IV FLUID CONTINUATION 1,000 ML IV ONE (07:21)
[2020-11-10 07:34] VITALS: BP 104/68; PULSE 62
== END 2020-11-10 07:56 | disposition home or self-care (01) ==
LOC: ORPAIN 06:14
PROVIDERS: ATTEND Specialist
DX: G89.29 Other chronic pain (principal); G58.8 Other specified mononeuropathies
CPT/HCPCS: 64425; J2250; J1030; J3010; J2795

== ENCOUNTER 2020-11-24 06:18 | Day surgery (SDC) | payer OTHER ==
[2020-11-23 13:15] VITALS: BMI 31.5
[2020-11-24 07:01] VITALS: TEMP 96.4
[2020-11-24] MEDS ORDERED: LIDOCAINE 1% (10MG/ML) FOR IV START INTRADERMA ONE (07:11)
[2020-11-24] MEDS: LACTATED RINGERS 1,000 ML IV SCH ×2 (07:11→07:22)
[2020-11-24 07:14] LABS: Glucose,Whole Blood 126 mg/dL (75-99)
[2020-11-24] MEDS ORDERED: BUPIVACAINE (PF) 0.75% 30 ML VIAL ONE (07:23)
[2020-11-24] MEDS ORDERED: methylPREDNISolone ACETATE 40 MG/ML 1 ML VIAL ONE (07:23)
[2020-11-24] MEDS ORDERED: MIDAZOLAM 2 MG/2 ML VIAL ONE (07:23)
[2020-11-24] MEDS ORDERED: fentaNYL (PF) 50 MCG/ML 2 ML AMP ONE (07:23)
--- NOTE | 2020-11-24 07:49 | P.PCN ---
Date of Procedure: 11/24/20 Procedure(s) Performed: Preoperative diagnoses= 1-right ilioinguinal neuralgia Postoperative diagnoses= same as preoperative diagnosis. Procedure= Right ilioinguinal nerve block under ultrasound guidance Anesthesia= moderate sedation with Versed 2 mg and fentanyl 100 micrograms and local infiltration with lidocaine 1% 4 ml Estimated blood loss=minimal. Procedure indication= the patient had a history of severe chronic right groin pain secondary to right ilioinguinal neuralgia ,unresponsive to conservative treatment. Procedure description= the patient was seen and identified in the preoperative holding area, risks and benefits and alternative of the procedure and possible complications discussed with the patient, and he agreed with the preceding, patient signed the consent, an IV was started, and vital signs were monitored and were stable throughout the procedure, patient was placed in the supine position or table and the thoracic area with Betadine 3, local infiltration of the skin and subcu interstitial with lidocaine 1% 2 mL, the 20-gauge Pujunk needle, advanced slowly under ultrasound and was located the internal oblique muscle and the transverse abdominis muscles, which is responders to the location of the right Ilioinguinal nerve, then after negative aspiration, Ropivacaine 0.5% 9 ml and 40 mg of Depo-Medrol injected after negative aspiration patient tolerated the procedure well without any complications. The patient groin was cleaned, and a Band-Aid applied, the patient transported to recovery room in stable condition and he was monitored for 30 minutes before he was discharged home ,and then patient was reexamined before going home and patient was discharged in stable condition and patient will follow up with the pain clinic in a few weeks
[2020-11-24] MEDS ORDERED: IV FLUID CONTINUATION 1,000 ML IV ONE (07:53)
[2020-11-24 07:55] VITALS: RESP 16
[2020-11-24 08:08] VITALS: BP 104/68; PULSE 65
== END 2020-11-24 08:24 | disposition home or self-care (01) ==
LOC: ORPAIN 06:18
PROVIDERS: ATTEND Specialist
DX: G58.8 Other specified mononeuropathies (principal); E11.9 Type 2 diabetes mellitus without complications
CPT/HCPCS: 64425; J2250; J1030; J3010; 99152

== ENCOUNTER → 2020-11-30 | Outpatient (CLI) | payer OTHER ==
[2020-11-30 10:32] LABS: Appearance,Urine Clear (Clear); Bilirubin,Urine 1+ (Negative); Blood,Urine Negative (Negative); Color,Urine Yellow; Glucose,Urine (UA) Negative (Negative); Ketones,Urine Trace (Negative); Leukocyte Esterase,Urine Negative (Negative); Mucus,Urine Moderate /hpf; Nitrite,Urine Negative (Negative); PH, Urine 5.5 (5.0-8.0); Protein,Urine 1+ (Negative); RBC,Urine 1 /hpf (0-5); Specific Gravity,Urine 1.035 (1.001-1.035); Squamous Epithelial Cell,Urine <1 /hpf (0-4); WBC,Urine 1 /hpf (0-5)
[2020-11-30 14:51] LABS: Basophils # (A) 0.03 X 10*3/uL (0.00-0.10); Basophils % (A) 0.5 %; Eosinophils # (A) 0.07 X 10*3/uL (0.04-0.35); Eosinophils % (A) 1.1 %; HCT 47.3 % (39.6-50.0); HGB 15.6 g/dL (13.0-17.0); Lymphocytes # (A) 1.91 X 10*3/uL (0.90-5.00); Lymphocytes % (A) 30.7 %; MCH 32.6 pg (27.0-32.0); Mean Platelet Volume 10.9 fL (9.5-12.2); Monocytes # (A) 0.57 X 10*3/uL (0.20-1.00); Monocytes % (A) 9.1 %; Neutrophils # (A) 3.61 X 10*3/uL (1.80-7.70); Platelet Count 246 X 10*3/uL (140-440); RBC 4.78 X 10*6/uL (4.40-5.60); WBC 6.23 X 10*3/uL (4.50-10.00)
[2020-11-30 15:09] LABS: Albumin 4.7 g/dL (3.80-4.90); Albumin/Globulin Ratio 2.35 (1.60-3.17); Anion Gap 6.1 mmol/L (4.00-12.00); Calcium 9.7 mg/dL (8.7-10.3); Carbon Dioxide 22.9 mmol/L (21.6-31.8); Chol/HDL Ratio 3.4; LDL Cholesterol,Calculated 92.8 mg/dL (0.0-131.0); Potassium 4.8 mmol/L (3.5-5.5); Total Bilirubin 0.2 mg/dL (0.3-1.2); Total Protein 6.7 g/dL (6.2-8.2); VLDL Calculation 51.2 mg/dL (5.00-40.00)
[2020-11-30 18:03] LABS: Hemoglobin A1C 6.1 % (4.0-6.0)
== END | disposition home or self-care (01) ==
LOC: LABWHC1 09:53
PROVIDERS: ATTEND Family Medicine
DX: Z00.00 Encounter for general adult medical examination without abnormal findings (principal); E11.9 Type 2 diabetes mellitus without complications; R79.89 Other specified abnormal findings of blood chemistry; B35.1 Tinea unguium; E55.9 Vitamin D deficiency, unspecified
CPT/HCPCS: 36415; 80053; 80061; 81001; 82140; 82306; 83036; 85025

== ENCOUNTER → 2020-12-16 | Outpatient (CLI) | payer OTHER ==
[2020-12-16 13:39] VITALS: BP 119/72; PULSE 77; RESP 18; TEMP 97.8
--- NOTE | 2020-12-16 14:26 | P.PN ---
Subjective Progress Note Date: 12/16/20 This is a follow-up visit for this patient with a history of severe chronic right groin pain, recently we had done a right sided ilioinguinal nerve block under ultrasound guidance, and had some benefit from it but currently is complaining of severe low back pain with radiation to the right buttock area and also he continued to have severe right groin pain with radiation to the right testicle, he denies any motor or sensory deficit he denies any fever or night sweats Objective - Vital Signs Vital signs: Vital Signs Temp 97.8 F 12/16/20 13:37 Pulse 77 12/16/20 13:37 Resp 18 12/16/20 13:37 BP 119/72 12/16/20 13:37 Pulse Ox 99 12/16/20 13:37 - Exam Physical Examinations : -Constitutiona : Cooperative , not in acute distress . -HEENT : nech : supple , no Lymphadenopathy , normal thyroid size . : eyes : no ptosis , no icterus, no photophobia . - neurologic : Cranial nerve II to XII intact , no focal neurological deffecit . -psychatric : alert , oriented X 3 , appropriate affect , intact judgment and insight . -Lymphatic : no Lymphadenopathy . - musculoskeltal : Lumber spine moter stegnth lower extremities ,thigh and legs 5/5 Right side , 5/5 Left side deep tendon reflexes : normal Knee Jerk , normal ankle Jerk lumber facet Loading Test =positive Right Range of motion of the lumbar spine Flexion 60 degrees, extension 10 degrees strait leg raising test = positive at 45 degree Fabere test= positive Right . Sever tenderness over the Sacroiliac joint on the Right . Gaenslen test= positive right . Seated flexion test= positive right . Distraction test= positive right - Genitourinary : Positive allodynia and dysesthesia in the right groin and testicular area all the incisions from the right hernia surgery.healed Appropriately, and there is no sign of infection, or discharge -Integumentary : No cellulitis , no ulcers , normal skin turgor , no cyanotic . Assessment and Plan Plan: Assessment and plan=1-right sacroiliitis. 2-Right Ilioinguinal nerve neuralgia, Right genital femoral nerve neuralgia. he Could benefit from right ongoing and nerve and right genitofemoral nerve block under ultrasound guidance. -he is already getting right sacroiliac steroid injection by Dr. Lewis. - PQRS measures = - Patient's medications are documented in the chart. -Tobacco use is positive, and counseling.Given. -Patient's has not received pneumococcal vaccine. -Advanced care planning discussed, patient not eligible. -Opiate contract not signed. -Pain positive and follow-up visit/procedure is scheduled. -Patient's blood pressure measured [ 119/72 ] , and documented in the record ,and patient will follow up with the primary care. -Patient's weight was measured and body mass index [30 ] above the,normal limits and counseling was done. and patient instructed to follow-up with the primary care physician. -Patient was not identified as an unhealthy alcohol user Time with Patient: Less than 30
== END | disposition home or self-care (01) ==
LOC: PNWHC3 13:21
PROVIDERS: ATTEND Specialist
DX: M46.1 Sacroiliitis, not elsewhere classified (principal); M79.2 Neuralgia and neuritis, unspecified; R10.31 Right lower quadrant pain
CPT/HCPCS: 99211

== ENCOUNTER 2021-01-07 06:15 | Day surgery (SDC) | payer OTHER ==
[2021-01-05 15:52] VITALS: BMI 30.7
[2021-01-07 07:06] VITALS: RESP 16; TEMP 96.3
[2021-01-07] MEDS ORDERED: LIDOCAINE 1% (10MG/ML) FOR IV START INTRADERMA ONE (07:10)
[2021-01-07 07:23] LABS: Glucose,Whole Blood 139 mg/dL (75-99)
[2021-01-07] MEDS ORDERED: MIDAZOLAM 2 MG/2 ML VIAL ONE (07:36)
[2021-01-07] MEDS ORDERED: ROPIVACAINE 5MG/ML 20ML VIAL ONE (07:36)
[2021-01-07] MEDS ORDERED: fentaNYL (PF) 50 MCG/ML 2 ML AMP ONE (07:36)
--- NOTE | 2021-01-07 08:04 | P.PCN ---
Date of Procedure: 01/07/21 Preoperative Diagnosis: Right ilioinguinal and genitofemoral neuralgia Postoperative Diagnosis: Same as above Procedure(s) Performed: Right ilioinguinal and right genitofemoral nerve block under ultrasound guidance Anesthesia: other (Monitored IV conscious sedation with Versed and fentanyl) Surgeon: Michelle Isbell Pathology: none sent Condition: stable Disposition: PACU Description of Procedure: The patient was seen in the preop holding area consent was obtained then he was brought into the procedure room and placed in supine position. The skin was prepped with ChloraPrep and draped in a sterile manner. Lidocaine 1% was used to numb the skin up at the entry points which were chosen as follows: For the right ilioinguinal nerve block the anterior superior iliac spine was identified and the ultrasound probe was placed obliquely between the umbilicus and the anterior-superior neck spine. Then the internal oblique abdominal muscle and the fascia between the internal oblique abdominal muscle and the transverse abdominis muscle was identified and was targeted by a 21-gauge 100 mm in length needle then I injected 10 MLS of ropivacaine 0.5% in this fascial plain between these 2 muscles. I then turned my attention into doing the right genitofemoral nerve block by identifying the spermatic cord and ultrasound and using the same needle to go lateral to the spermatic cord and injecting 6 and mils of ropivacaine 0.5% there. Patient tolerated procedure well. No steroids were used for this procedure today
[2021-01-07] MEDS ORDERED: IV FLUID CONTINUATION 1,000 ML IV ONE (08:06)
[2021-01-07 08:23] VITALS: BP 103/67; PULSE 63
== END 2021-01-07 08:37 | disposition home or self-care (01) ==
LOC: ORPAIN 06:15
PROVIDERS: ATTEND Anesthesiology
DX: G57.81 Other specified mononeuropathies of right lower limb (principal)
CPT/HCPCS: 64425; J2250; J3010; J2795; 99152

== ENCOUNTER 2021-02-04 06:22 | Day surgery (SDC) | payer OTHER ==
[2021-02-01 14:41] VITALS: BMI 30.1
[2021-02-04 06:51] LABS: Glucose,Whole Blood 133 mg/dL (75-99)
[2021-02-04] MEDS ORDERED: LIDOCAINE 1% (10MG/ML) FOR IV START INTRADERMA ONE (06:51)
[2021-02-04] MEDS ORDERED: LACTATED RINGERS 1,000 ML IV ONE (06:52)
[2021-02-04 06:55] VITALS: TEMP 97.1
[2021-02-04] MEDS ORDERED: MIDAZOLAM 2 MG/2 ML VIAL ONE (07:08)
[2021-02-04] MEDS ORDERED: ROPIVACAINE 5MG/ML 20ML VIAL ONE (07:08)
[2021-02-04] MEDS ORDERED: fentaNYL (PF) 50 MCG/ML 2 ML AMP ONE (07:08)
--- NOTE | 2021-02-04 07:23 | P.PCN ---
Date of Procedure: 02/04/21 Description of Procedure: Preoperative Diagnosis: Right ilioinguinal and genitofemoral neuralgia Postoperative Diagnosis: Same as above Procedure(s) Performed: Right ilioinguinal and right genitofemoral nerve block under ultrasound guidance Anesthesia: other (Monitored IV conscious sedation with Versed and fentanyl) Surgeon: Tai Elena Pathology: none sent Condition: stable Disposition: PACU Description of Procedure: The patient was seen in the preop holding area consent was obtained then he was brought into the procedure room and placed in supine position. The skin was prepped with ChloraPrep and draped in a sterile manner. Lidocaine 1% was used to numb the skin up at the entry points which were chosen as follows: For the right ilioinguinal nerve block the anterior superior iliac spine was identified and the ultrasound probe was placed obliquely between the umbilicus and the anterior-superior neck spine. Then the internal oblique abdominal muscle and the fascia between the internal oblique abdominal muscle and the transverse abdominis muscle was identified and was targeted by a 21-gauge 100 mm in length needle then I injected 5 MLS of ropivacaine 0.5% in this fascial plain between these 2 muscles. I then turned my attention into doing the right genitofemoral nerve block by identifying the spermatic cord and ultrasound and using the same needle to go lateral to the spermatic cord and injecting 5 and mils of ropivacaine 0.5% there. Patient tolerated procedure well.
[2021-02-04] MEDS ORDERED: IV FLUID CONTINUATION 550 ML IV ONE (07:27)
[2021-02-04 08:14] VITALS: BP 110/64; PULSE 66; RESP 20
== END 2021-02-04 08:18 | disposition home or self-care (01) ==
LOC: ORPAIN 06:22
PROVIDERS: ATTEND Anesthesiology
DX: G57.81 Other specified mononeuropathies of right lower limb (principal)
CPT/HCPCS: 64450; 64425; J2250; J3010; J2795; 99152

== ENCOUNTER → 2021-02-24 | Outpatient (CLI) | payer OTHER ==
[2021-02-24 09:24] VITALS: BP 118/76; RESP 18; TEMP 98
[2021-02-24 09:31] VITALS: PULSE 75
--- NOTE | 2021-02-24 09:35 | P.PN ---
Subjective Progress Note Date: 02/24/21 This is a 50-year-old gentleman with history of neck and lower back pain for which he uses OxyContin by a different prescriber. The patient has been treated in our clinic only for his right groin pain status post repair with mesh. The patient has been getting ilioinguinal and genitofemoral nerve blocks on the right side under ultrasound guidance. These injections usually give him 3-4 weeks of pain relief however the last one did not . The patient had side effects to attend and Lyrica however he takes Topamax for his headache. Patient denies new-onset weakness, bowel/bladder incontinence, or any other signs or symptoms of cauda equina syndrome. There are no signs of acute intoxication, and no indications of medication diversion or overuse. In addition to above, 13-point review of systems is also negative for chest pain, shortness of breath, changes in vision, changes in hearing, new onset weakness, abdominal pain, diarrhea, extreme fatigue, malaise, fever, skin changes, homicidal or suicidal ideation, or bowel or bladder incontinence. Vital Signs: Reviewed in EMR Gen: AAOx3, NAD HEENT: PERRLA,hearing grossly normal Pulm: resp unlabored Neck: supple, trachea midline Neuro: CN II-XII grossly intact, Imaging: Reviewed in EMR/chart Assessment: Right ilioinguinal and genitofemoral neuralgia status post hernia repair Neck and lower back pain Marijuana use Plan: 1. Explanation: When patients on opioids, opioid and psychological risk scores were reviewed. Diagnoses, prognoses, and multiple treatment options including but not limited to physical therapy, interventional therapies, adjuvant medical therapies, narcotic medication therapies, and surgery were discussed with the patient and all questions were answered to the patient's satisfaction. 2. Opioid agreement:When patients are prescribed opoids through our clinic, opioid agreement is signed with the patient and the patient is warned not to use opioids while driving or before driving and not to combine opioids with benzodiazepines or alcohol. 3. Counseling: When patient is smoking or obese, the patient was counseled extensively on SMOKING CESSATION, BODY MASS INDEX, EXERCISE. Specifically, the patient was instructed regarding the importance of smoking cessation, obesity, and exercise in the context of both chronic pain and overall health. 4. Procedures: Scheduled for right ilioinguinal and genitofemoral nerve block under ultrasound guidance. We Will not use any steroids for this injection; will use only long-acting local anesthetic. 5. Consultations: None 6. Investigations: None 7. Medications: None prescribed 8. Disposition: Proceed with the above-mentioned procedure as soon as possible 9. Maps were reviewed and were appropriate. PQRS measures: 1-Patient's medications are documented in the chart. 2-Tobacco use is negative, counseling given 3-Patient has had a pneumococcal vaccine. 4-Advanced care planning discussed, patient unable to give 5-Opioid contract signed with the patient. 6-Pain positive, follow-up visit or procedure scheduled 7-Patient's blood pressure measured and documented normal limits. The patient will follow up with his primary care physician. 8-Patient's weight was measured, and body mass index ABOVE the normal limits, and counseling was done. Patient instructed to follow up with PCP. 9-Patient WAS NOT identified as an unhealthy alcohol user. Objective - Vital Signs Vital signs: Vital Signs Temp 98.0 F 02/24/21 09:18 Pulse 75 02/24/21 09:18 Resp 18 02/24/21 09:18 BP 118/76 02/24/21 09:18 Pulse Ox 95 02/24/21 09:18
== END | disposition home or self-care (01) ==
LOC: PNWHC3 09:11
PROVIDERS: ATTEND Anesthesiology
DX: G58.8 Other specified mononeuropathies (principal); M54.5 Low back pain; M54.2 Cervicalgia; F12.90 Cannabis use, unspecified, uncomplicated
CPT/HCPCS: 99211

== ENCOUNTER 2021-04-08 06:21 | Day surgery (SDC) | payer OTHER ==
[2021-04-07 12:03] VITALS: BMI 31.5
[2021-04-08] MEDS ORDERED: LIDOCAINE 1% (10MG/ML) FOR IV START INTRADERMA ONE (06:55)
[2021-04-08 07:01] VITALS: TEMP 97.3
[2021-04-08 07:04] LABS: Glucose,Whole Blood 112 mg/dL (75-99)
[2021-04-08] MEDS ORDERED: MIDAZOLAM 2 MG/2 ML VIAL ONE (07:28)
[2021-04-08] MEDS ORDERED: fentaNYL (PF) 50 MCG/ML 2 ML AMP ONE (07:28)
[2021-04-08] MEDS ORDERED: ROPIVACAINE 5MG/ML 20ML VIAL ONE (07:28)
[2021-04-08] MEDS ORDERED: methylPREDNISolone ACETATE 40 MG/ML 1 ML VIAL ONE (07:28)
--- NOTE | 2021-04-08 07:54 | P.PCN ---
Date of Procedure: 04/08/21 Procedure(s) Performed: Preoperative Diagnosis: Right ilioinguinal and genitofemoral neuralgia Postoperative Diagnosis: Same as above Procedure(s) Performed: Right ilioinguinal ,and right genitofemoral nerve block under ultrasound guidance Anesthesia: moderate sedations with Versed 2 mg ,and Fentanyle 100 Mcg Pathology: none sent Condition: stable Disposition: PACU Description of Procedure: The patient was seen in the preop holding area consent was obtained then he was brought into the procedure room and placed in supine position. The skin was prepped with ChloraPrep and draped in a sterile manner. Lidocaine 1% was used to numb the skin up at the entry points which were chosen as follows: For the right ilioinguinal nerve block the anterior superior iliac spine was identified and the ultrasound probe was placed obliquely between the umbilicus and the anterior-superior neck spine. Then the internal oblique abdominal muscle and the fascia between the internal oblique abdominal muscle and the transverse abdominis muscle was identified and was targeted by a 21-gauge 100 mm in length needle then I injected 15 ml of Ropivacaine 0.5 % mixed with 40 mg Depo-injected in this fascial plain between these 2 muscles. I then turned my attention into doing the right genitofemoral nerve block by identifying the spermatic cord and ultrasound and using the same needle to go lateral to the spermatic cord and injecting 8 ml of ropivacaine 0.5% there. Patient tolerated procedure well.
[2021-04-08] MEDS ORDERED: LACTATED RINGERS 1,000 ML IV ONE (07:56)
[2021-04-08] MEDS ORDERED: IV FLUID CONTINUATION 700 ML IV ONE (07:56)
[2021-04-08 07:58] VITALS: PULSE 59
[2021-04-08 08:19] VITALS: BP 101/65; RESP 16
== END 2021-04-08 08:23 | disposition home or self-care (01) ==
LOC: ORPAIN 06:21
PROVIDERS: ATTEND Specialist
DX: G58.8 Other specified mononeuropathies (principal); E11.9 Type 2 diabetes mellitus without complications
CPT/HCPCS: 64450; 64425; J2250; J1030; J3010; J2795; 99152

== ENCOUNTER → 2021-04-22 | Outpatient (CLI) | payer OTHER ==
--- NOTE | 2021-04-22 10:26 | P.PAINPG ---
Subjective Progress Note Date: 04/22/21 Principal diagnosis: Groin pain Mr. Dave is a 50 year old pleasant male patient came to [facility] pain management clinic for follow-up. Patient described pain started in 2014 after laparoscopic inguinal hernia repair with mesh. Patient had right i lioinguinal nerve block, and right genitofemoral nerve block on 04/08/2021. Patient had great pain relief with last intervention procedure. Patient had more than 50% pain relief still helping to some extent. With the help of procedure patient can able to perform his activities, and sleep better. Patient described pain as aching, sharp, throbbing, and burning type of pain. Patient rated pain 4-5 out of 10 in severity. Which may very her pain level from 4-10 out of 10 in severity. Pain increases with activities, and standing, walking, sitting, bending forward, and lifting. Pain decreases with pain medications, and marijuana and intervention procedures. Overall patient activities decreased secondary to pain. Pain medications helping to some extent. Because of the pain patient is feeling lack of sleep and interest and energy. Denied any bowel or bladder problems. Patient denies any adverse effects to medications. Using cane as a walking aids for walking. Patient denied suicidal or homicidal ideations intent or plan. At this time patient also denies any auditory or visual hallucinations. There are no signs of narcotic diversion/misuse/overuse and no new-onset weakness, bowel/bladder incontinence, saddle anesthesia, or no red flag symptoms. Objective - Exam General: Well-developed, well-nourished, no acute distress HEENT: Normocephalic, and atraumatic Neck: Supple, no neck swelling Psychiatric: Appropriate mood, and affect [employer] H[employer]GER: No focal neurological deficits Musculoskeletal: Upper extremity: Normal strength, and range of motion. Sensation grossly intact Lower extremity: Normal strength, and decreased range of motion secondary to pain Tenderness over the right groin, and inguinal area Tinel sign positive over right groin area - Constitutional Constitutional Comment(s): 13 point review of symptoms negative except as mentioned in history of present illness she has some aching( Assessment and Plan Assessment: Right side ilioinguinal neuralgia, and right-sided genitofemoral neuralgia s tatus post hernia repair History of marijuana use Tobacco dependence smoking cigarettes Plan: #1 Diagnoses, prognosis, and multiple treatment options including but not limited to physical therapy, interventional therapy, adjunct medication therapy, narcotic medication, and surgical options were discussed with the patient. And all questions were answered to the patient's satisfaction. #2 treatment plan agreement : Patient was thoroughly discussed regarding the treatment options, alternatives, and importance of exercises as tolerated. Patient clearly understood. #3 Patient was counseled on importance of regular exercise. Including keshawn chi, aerobic exercises as tolerated. Which helps for chronic pain, and overall well- being. Patient also counseled regarding importance of weight control rolling chronic pain, and overall other health issues. By altering diet habits, minimizing sugar intake, and processed foods helps in minimizing Inflammation. Also discussed with the patient regarding intermittent fasting. Patient counseled regarding smoking associated with chronic pain, worsening inflammation, and smoking effects on liver, and medication metabolism. And encouraged to stop smoking. #4 investigations: MAPS- reviewed , urine drug test- not done #5 diagnostic tests: None #6 consultation : Continue physical therapy exercises at home # 7 interventional procedures: Right side ilioinguinal, and genitofemoral nerve block. Procedure, complications, alternatives discussed with the patient. Patient had 5 intervention procedures done in 5 months duration so long to hold until next year #8 medications #1 oxycodone 10 mg by mouth every 12 hours as needed from primary care physician Medication side effects, complications, long-term consequences discussed with the patient. #9 morphine milligrams equivalents dose ( MME) per day: 30. # 10 : Patient recommended to try TENS units #11 disposition: scheduled to follow up with pain clinic in 10 weeks duration. Time with Patient: Less than 30 PQRS Measure Charge Sheet Measure #130: Documentation of Current Meds in Medical Chart: Patient's medications documented in chart Measure #226: Tobacco Use: Screen & Cessation Intervention: Pt screened for tobacco use AND intervention given Measure #111: Pneumonia Vaccination: Pneumococcal vaccine NOT administered or previously given Measure #47: Advance Care Plan: Advance care planning discussed & documented, pt chose/unable to give Measure #412: Opioid Treatment Agreement: No documentation of signed opioid treatment agreement Measure #408: Opioid Therapy Follow-up Evaluation: Patient had NO f/u eval minimum every 3 months during opioid therapy Measure #317: Preventitive Care & Scrn High Bld Press & F/U: Normal blood pressure, f/u not required Measure #128: Body Mass Index (BMI) Screening & Follow-up: BMI documented ABOVE normal parameters - f/u documented Measure #131: Pain Assessment & Follow-up: Pain positive & plan documented Measure #431: Unhealthy Alcohol Use Preventative Care & Scrn: Patient not identified as an unhealthy alcohol user - Pain Location Right Thigh Pharmacological Interventions: PRN Medication PQRS Narrative: Smoking Status Current every day smoker Pain Intensity [Right Thigh] 6 Hx Alcohol Use (MH) Yes: RARE. Home Medications: Ambulatory Orders Topiramate 50 mg PO BID 10/30/16 oxyCODONE HCL [oxyCODONE HCL (IR)] 10 mg PO BID 06/26/17 Atorvastatin [Lipitor] 40 mg PO DAILY 10/16/20 [place]/APAP/Caf/Cod 75-328-58-30 [Fioricet w/Cod 07-721-74-30MG] 1 cap PO DAILY PRN 10/16/20 Cholecalciferol [Vitamin D3 (25 Mcg = 1000 Iu)] 50 mcg PO DAILY 10/16/20 FLUoxetine HCL [PROzac] 20 mg PO DAILY 10/16/20 Fluticasone Nasal [place] [Flonase Nasal [place]] 1 spray EA NOSTRIL DAILY PRN 10/16/20 Loratadine [Claritin] 10 mg PO DAILY 10/16/20 Meloxicam [Mobic] 15 mg PO DAILY 10/16/20 metFORMIN HCL [Glucophage] 500 mg PO BID 10/16/20 tiZANidine HCL [Zanaflex] 4 mg PO TID 10/16/20 Galcanezumab-Gnlm [Emgality] 120 mg SQ Q30D 12/10/20 Controlled Substance Measures - Controlled Substance Measures Is patient prescribed a controlled substance at discharge?: No
[2021-04-22 10:28] VITALS: TEMP 97.5
[2021-04-22 10:31] VITALS: BP 139/74; PULSE 84; RESP 18
== END | disposition home or self-care (01) ==
LOC: PNWHC3 09:43
DX: M79.2 Neuralgia and neuritis, unspecified (principal); F17.200 Nicotine dependence, unspecified, uncomplicated
CPT/HCPCS: 99211

== ENCOUNTER → 2021-08-02 | Outpatient (CLI) | payer OTHER ==
[2021-08-03 12:35] LABS: Coronavirus SARS CoV-2 Not Detected (Not Detected)
== END | disposition home or self-care (01) ==
LOC: LABPAT 10:26
PROVIDERS: ATTEND Surgery Plastic and Reconstructive Surgery
DX: Z01.812 Encounter for preprocedural laboratory examination (principal); Z20.822 Contact with and (suspected) exposure to COVID-19
CPT/HCPCS: U0003; U0005

== ENCOUNTER 2021-08-05 07:10 | Day surgery (SDC) | payer OTHER ==
[2021-08-02 15:11] VITALS: BMI 31.8
[2021-08-05 07:25] VITALS: RESP 16; TEMP 97.3
--- NOTE | 2021-08-05 07:32 | P.GSHP ---
History of Present Illness H&P Date: 08/05/21 CHIEF COMPLAINT: Colon screen HISTORY OF PRESENT ILLNESS: The patient is a 51-year-old male who presents for colon screen. Lower endoscopy was offered for further evaluation and management. PAST MEDICAL HISTORY: Please see list. PAST SURGICAL HISTORY: Please see list. MEDICATIONS: Please see list. ALLERGIES: Please see list. SOCIAL HISTORY: No illicit drug use FAMILY HISTORY: No reports of Crohn disease or ulcerative colitis. REVIEW OF ORGAN SYSTEMS: CONSTITUTIONAL: No reports of fevers or chills. PHYSICAL EXAM: VITAL SIGNS: Stable GENERAL: Well-developed pleasant in no acute distress. HEENT: No scleral icterus. Extraocular movements grossly intact. Moist buccal mucosa. NECK: Supple without lymphadenopathy. CHEST: Unlabored respirations. Equal bilateral excursions. CARDIOVASCULAR: Regular rate and rhythm. Distal 2+ pulses. ABDOMEN: Soft, nontender, nondistended. MUSCULOSKELETAL: No clubbing, cyanosis, or edema. ASSESSMENT: 1. Colon screen. PLAN: 1. Recommend proceeding with a lower endoscopy Past Medical History Past Medical History: Diabetes Mellitus, Fibromyalgia, GERD/Reflux, Musculoskeletal Disorder, Osteoarthritis (OA) Additional Past Medical History / Comment(s): DDD, chronic back pain , neck and hip pain. Right Groin pain post hernia repair. Spondylosis, spinal stenosis, right foot fasciitis. MIGRAINE HEADACHE History of Any Multi-Drug Resistant Organisms: None Reported Past Surgical History: Hernia Repair Additional Past Surgical History / Comment(s): Right foot achilles tendon, "cyst on tailbone", pain clinic procedures. Past Anesthesia/Blood Transfusion Reactions: No Reported Reaction, Motion Sickness Past Psychological History: Anxiety, Depression Smoking Status: Current every day smoker Past Alcohol Use History: Rare Additional Past Alcohol Use History / Comment(s): STARTED SMOKING AT AGE 16, SMOKES 1PPD. Past Drug Use History: Marijuana Additional Drug Use History / Comment(s): Uses medical marijuana daily. Aware no use 24 hrs prior to procedure. - Past Family History Mother Family Medical History: No Reported History Medications and Allergies Home Medications Medication Instructions Recorded Confirmed Type Topiramate 50 mg PO BID 10/30/16 08/05/21 History oxyCODONE HCL [oxyCODONE HCL (IR)] 10 mg PO BID 06/26/17 08/05/21 History Atorvastatin [Lipitor] 40 mg PO HS 10/16/20 08/05/21 History [place]/APAP/Caf/Cod [id number] 1 cap PO DAILY PRN 10/16/20 08/05/21 History [Fioricet w/Cod 78-374-50-30MG] Cholecalciferol [Vitamin D3 (25 50 mcg PO DAILY 10/16/20 08/05/21 History Mcg = 1000 Iu)] FLUoxetine HCL [PROzac] 20 mg PO DAILY 10/16/20 08/05/21 History Fluticasone Nasal [place] [Flonase 1 spray EA NOSTRIL DAILY PRN 10/16/20 08/05/21 History Nasal [place]] Loratadine [Claritin] 10 mg PO DAILY 10/16/20 08/05/21 History Meloxicam [Mobic] 15 mg PO DAILY 10/16/20 08/05/21 History metFORMIN HCL [Glucophage] 500 mg PO BID 10/16/20 08/05/21 History tiZANidine HCL [Zanaflex] 4 mg PO TID 10/16/20 08/05/21 History Galcanezumab-Gnlm [Emgality] 120 mg SQ Q30D 12/10/20 08/05/21 History Hydrocortisone Cream 1 applic TOPICAL DAILY 07/23/21 08/05/21 History [Hydrocortisone 1% Cream] Pantoprazole Sodium [Protonix] 20 mg PO DAILY 07/26/21 08/05/21 History Allergies Allergy/AdvReac Type Severity Reaction Status Date / Time aspirin Allergy Swelling Verified 08/05/21 07:25 clindamycin Allergy "burned Verified 08/05/21 07:25 stomach" erythromycin base Allergy Nausea & Verified 08/05/21 07:25 Vomiting. ABD PAIN. Fish Containing Products Allergy throat Verified 08/05/21 07:25 [Fish] swelling fish oil Allergy RASH IN Verified 08/05/21 07:25 MOUTH, FELT LIKE HIS WAS ITCHING "INTERNALLY" hydrocodone bitartrate Allergy Nausea & Verified 08/05/21 07:25 [From Vicodin] Vomiting milk Allergy "locks up Verified 08/05/21 07:25 my body" Penicillins Allergy Rash/Hives Verified 08/05/21 07:25 perfume Allergy Unknown Verified 08/05/21 07:25 pregabalin [From Lyrica] Allergy throat Verified 08/05/21 07:25 swelling gabapentin AdvReac Nausea & Verified 08/05/21 07:25 Vomiting lactose AdvReac Vomiting Verified 08/05/21 07:25 Surgical - Exam Vital Signs Temp Pulse Resp BP Pulse Ox 97.3 F L 94 16 140/74 93 L 08/05/21 07:24 08/05/21 07:24 08/05/21 07:24 08/05/21 07:24 08/05/21 07:24
[2021-08-05 07:43] LABS: Glucose,Whole Blood 158 mg/dL (75-99)
[2021-08-05] MEDS ORDERED: PROPOFOL 10 MG/ML 20 ML VIAL IV ONE (07:54)
--- NOTE | 2021-08-05 08:21 | P.PCN ---
Date of Procedure: 08/05/21 Description of Procedure: PREOPERATIVE DIAGNOSIS: Colonoscopy screening POSTOPERATIVE DIAGNOSIS: Tubular adenoma transverse colon Sigmoid diverticulosis OPERATION: Colonoscopy to the ileocecal valve and appendiceal orifice, cecum Colonoscopy with hot snare polypectomy SURGEON: Klaudia Coy MD. ANESTHESIA: MAC. INDICATIONS: The patient is an 51-year-old male who presents for colon screening. Benefits and risks were described and informed consent was obtained. DESCRIPTION OF PROCEDURE: The patient had undergone Sutab prep. The patient had been brought into the operating room and laid in the left lateral decubitus position. After adequate intravenous sedation, the rectum was examined with 2% lidocaine jelly. The prostate was unremarkable. No external hemorrhoids were encountered. The rectal tone was within normal limits. No lesions were palpated in the rectal vault. An Olympus colonoscope was advanced until the cecum, ileocecal valve and appendiceal orifice were clearly viewed. The prep was excellent. Sigmoid diverticulosis was encountered. Colonic polyps were found and removed. No evidence of focal colitis was found. Retroflexion of the scope demonstrated grade 2 internal hemorrhoids without active bleeding or inflammation. The colon was desufflated. The patient had tolerated the procedure well. Withdrawal time was over 6 minutes. FINDINGS: Aronchick preparation quality scale 1 (1-5) Internal hemorrhoids, grade 1 No external hemorrhoids. No arteriovenous malformations. Sigmoid diverticulosis Removal of 1 polyp: - Snare polypectomy midtransverse colon, 5 mm tubulovillous adenoma polyp. No focal colitis. RECOMMENDATIONS: Repeat colonoscopy in 3 years, 2024 Plan - Discharge Summary Discharge Rx Participant: Yes New Discharge Prescriptions: Continue Topiramate 50 mg PO BID oxyCODONE HCL [oxyCODONE HCL (IR)] 10 mg PO BID Fluticasone Nasal [place] [Flonase Nasal [place]] 1 spray EA NOSTRIL DAILY PRN PRN Reason: sinus issues FLUoxetine HCL [PROzac] 20 mg PO DAILY [place]/APAP/Caf/Cod [id number] [Fioricet w/Cod 98-467-34-30MG] 1 cap PO DAILY PRN PRN Reason: MIGRAINE HEADACHE tiZANidine HCL [Zanaflex] 4 mg PO TID metFORMIN HCL [Glucophage] 500 mg PO BID Hydrocortisone Cream [Hydrocortisone 1% Cream] 1 applic TOPICAL DAILY Loratadine [Claritin] 10 mg PO DAILY Meloxicam [Mobic] 15 mg PO DAILY Atorvastatin [Lipitor] 40 mg PO HS Cholecalciferol [Vitamin D3 (25 Mcg = 1000 Iu)] 50 mcg PO DAILY Galcanezumab-Gnlm [Emgality Pen] 120 mg SQ Q30D Pantoprazole Sodium [Protonix] 20 mg PO DAILY Discharge Medication List Topiramate 50 mg PO BID 10/30/16 [History] oxyCODONE HCL [oxyCODONE HCL (IR)] 10 mg PO BID 06/26/17 [History] Atorvastatin [Lipitor] 40 mg PO HS 10/16/20 [History] [place]/APAP/Caf/Cod [id number] [Fioricet w/Cod 04-394-90-30MG] 1 cap PO DAILY PRN 10/16/20 [History] Cholecalciferol [Vitamin D3 (25 Mcg = 1000 Iu)] 50 mcg PO DAILY 10/16/20 [History] FLUoxetine HCL [PROzac] 20 mg PO DAILY 10/16/20 [History] Fluticasone Nasal [place] [Flonase Nasal [place]] 1 spray EA NOSTRIL DAILY PRN 10/16/20 [History] Loratadine [Claritin] 10 mg PO DAILY 10/16/20 [History] Meloxicam [Mobic] 15 mg PO DAILY 10/16/20 [History] metFORMIN HCL [Glucophage] 500 mg PO BID 10/16/20 [History] tiZANidine HCL [Zanaflex] 4 mg PO TID 10/16/20 [History] Galcanezumab-Gnlm [Emgality Pen] 120 mg SQ Q30D 12/10/20 [History] Hydrocortisone Cream [Hydrocortisone 1% Cream] 1 applic TOPICAL DAILY 07/23/21 [History] Pantoprazole Sodium [Protonix] 20 mg PO DAILY 07/26/21 [History] Follow up Appointment(s)/Referral(s): Klaudia Coy MD [STAFF PHYSICIAN] - As Needed Patient Instructions/Handouts: Colorectal Polyps (GEN), Colonoscopy (DC), Diverticulosis Diet (GEN), Diverticulosis (DC) Activity/Diet/Wound Care/Special Instructions: Repeat colonoscopy in 3 years, 2024 Discharge Disposition: HOME SELF-CARE
[2021-08-05 08:29] VITALS: BP 112/76; PULSE 69
== END 2021-08-05 09:11 | disposition home or self-care (01) ==
LOC: ORWHC2ENDO 07:10
PROVIDERS: ATTEND Surgery Plastic and Reconstructive Surgery
DX: Z12.11 Encounter for screening for malignant neoplasm of colon (principal); D12.3 Benign neoplasm of transverse colon; K57.30 Diverticulosis of large intestine without perforation or abscess without bleeding; K64.1 Second degree hemorrhoids; E11.9 Type 2 diabetes mellitus without complications; M79.7 Fibromyalgia; K21.9 Gastro-esophageal reflux disease without esophagitis; M79.9 Soft tissue disorder, unspecified; M19.90 Unspecified osteoarthritis, unspecified site; G89.29 Other chronic pain; M54.9 Dorsalgia, unspecified; M47.9 Spondylosis, unspecified; M48.00 Spinal stenosis, site unspecified; M72.2 Plantar fascial fibromatosis; G43.909 Migraine, unspecified, not intractable, without status migrainosus; M25.559 Pain in unspecified hip; F41.9 Anxiety disorder, unspecified; F32.A Depression, unspecified; F17.210 Nicotine dependence, cigarettes, uncomplicated; E78.5 Hyperlipidemia, unspecified; Z79.899 Other long term (current) drug therapy; Z79.84 Long term (current) use of oral hypoglycemic drugs; Z88.8 Allergy status to other drugs, medicaments and biological substances; Z88.6 Allergy status to analgesic agent; Z88.1 Allergy status to other antibiotic agents; Z91.011 Allergy to milk products; Z88.5 Allergy status to narcotic agent; Z88.0 Allergy status to penicillin; Z91.013 Allergy to seafood; Z98.890 Other specified postprocedural states
CPT/HCPCS: 88305; 45385; J2704

== ENCOUNTER → 2021-08-18 | Outpatient (CLI) | payer OTHER ==
--- NOTE | 2021-08-18 14:05 | P.PN ---
Subjective Progress Note Date: 08/18/21 Principal diagnosis: A 51 yr old male with a history of R inguinal abnormality presents today for evaluation status post right ilioinguinal/genitofemoral injection. Patient states he sustained 50% pain relief for 2 weeks status post procedure. Pain level is currently at 5 out of 10 in intensity, stabbing, throbbing, burning, tearing sensation in the right groin area. Pain is provoked by extension of the spine, bending or walking. Pain is alleviated with medications, injections, heat application, sleeping on his left side, massage of the affected area and rest. Interventional pain procedures completed include R ilioinguinal/ genitofemoral ligament injections Patient is currently on Oxycodone. Patient denies any side effects of the medication(s), denies excessive drowsiness or sleepiness, denies suicidal ideation and reports that the current pain medication is helping to control the pain and improve activities of daily living. Patient denies any motor or sensory deficits. Patient denies any fever or night sweats, denies any change in the bowel movements or urination. Physical Examination: -Constitutional: Cooperative. Not in acute distress . -HEENT: Neck is supple. No lymphadenopathy. No thyromegaly. Normal thyroid size. Eyes: No ptosis , no icterus, no photophobia. ENT: No auditory deficits. Normal oropharynx. No Thrush. - Respiratory: Chest clear to auscultations bilaterally. No wheezing. No rhonchi. - Cardiovascular: Regular rate and rhythm. S1 / S2 , no S3 , no S4. - Gastrointestinal: Abdomen soft no tenderness. Bowel sounds positive in all four quadrants. No organomegaly. R inguinal TTP without palpable mass detected. - Genitourinary: Deferred. - Neurologic: Cranial nerve II to XII intact. No focal neurological deficits. - Psychatric: Alert & oriented x 3. Matching mood & appropriate affect. Judgment and insight intact. - Lymphatic: No Lymphadenopathy. - Musculoskeletal: Cervical spine: Muscle bulk/ tone/ strength in the bilateral upper extremities normal. Facet loading test cervical area positive. Lumbar spine: Motor bulk/ tone/ strength lower extremities , thigh and legs : 5/5 Deep tendon reflexes : Normal Knee Jerk. Normal Ankle Jerk . 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 Risks, benefits of procedure discussed and patient verbalized understanding. Patient denies anticoagulant use. Patient admits to history of DM type II and taking metformin. Discussed NPO status after 8pm the night before the procedure and holding dose of Metformin. All patient questions answered MAPS reviewed and it was appropriate. I have spent 31 minutes on patient care today. Dr Schaffer was available by phone for the evaluation of this patient. The time was used to review the medical records including relevant urine studies and Prescription history (MAPs), review of the available imaging, evaluation and examination of the patient, coordination of care with the medical staff and if applicable referring physicians, as well as creation of the medical record Objective - Vital Signs Vital signs: Intake & Output 08/17/21 08/18/21 08/18/21 18:59 06:59 18:59 Weight 102.512 kg PQRS Measure Charge Sheet PQRS Narrative: Smoking Status Current every day smoker Pain Intensity [Right Groin] 4 Scale Used Numeric (1 - 10) Hx Alcohol Use (MH) Yes: RARE. Home Medications: Ambulatory Orders Topiramate 50 mg PO BID 10/30/16 oxyCODONE HCL [oxyCODONE HCL (IR)] 10 mg PO BID 06/26/17 Atorvastatin [Lipitor] 40 mg PO HS 10/16/20 [place]/APAP/Caf/Cod 66-040-67-30 [Fioricet w/Cod 73-578-15-30MG] 1 cap PO DAILY PRN 10/16/20 Cholecalciferol [Vitamin D3 (25 Mcg = 1000 Iu)] 50 mcg PO DAILY 10/16/20 FLUoxetine HCL [PROzac] 20 mg PO DAILY 10/16/20 Fluticasone Nasal [place] [Flonase Nasal [place]] 1 spray EA NOSTRIL DAILY PRN 10/16/20 Loratadine [Claritin] 10 mg PO DAILY 10/16/20 Meloxicam [Mobic] 15 mg PO DAILY 10/16/20 metFORMIN HCL [Glucophage] 500 mg PO BID 10/16/20 tiZANidine HCL [Zanaflex] 4 mg PO TID 10/16/20 Galcanezumab-Gnlm [Emgality Pen] 120 mg SQ Q30D 12/10/20 Hydrocortisone Cream [Hydrocortisone 1% Cream] 1 applic TOPICAL DAILY 07/23/21 Pantoprazole Sodium [Protonix] 20 mg PO DAILY 07/26/21
[2021-08-18 14:29] VITALS: BP 138/86; PULSE 73; RESP 18; TEMP 97.9
== END | disposition home or self-care (01) ==
LOC: PNWHC3 13:27
PROVIDERS: ATTEND Physician Assistant Medical
DX: R10.31 Right lower quadrant pain (principal)
CPT/HCPCS: 99211

== ENCOUNTER 2021-09-28 08:02 | Day surgery (SDC) | payer OTHER ==
[2021-09-27 09:20] VITALS: BMI 31.2
[~2021-09-28 08:02] MED LIST changes: +LIDOCAINE 1% (10MG/ML) FOR IV START INTRADERMA PRN
[2021-09-28 08:26] VITALS: TEMP 98
[2021-09-28 08:38] LABS: Glucose,Whole Blood 138 mg/dL (75-99)
[2021-09-28] MEDS ORDERED: MIDAZOLAM 2 MG/2 ML VIAL ONE (08:53)
[2021-09-28] MEDS ORDERED: methylPREDNISolone ACETATE 40 MG/ML 1 ML VIAL ONE (08:53)
[2021-09-28] MEDS ORDERED: ROPIVACAINE 5MG/ML 20ML VIAL ONE (08:53)
[2021-09-28] MEDS ORDERED: fentaNYL (PF) 50 MCG/ML 2 ML AMP ONE (08:53)
--- NOTE | 2021-09-28 09:14 | P.PCN ---
Date of Procedure: 09/28/21 Procedure(s) Performed: Right ilioinguinal and genitofemoral neuralgia Postoperative Diagnosis: Same as above Procedure(s) Performed: Right ilioinguinal ,and right genitofemoral nerve block under ultrasound guidance Anesthesia: moderate sedations with Versed 2 mg ,and Fentanyle 100 Mcg Pathology: none sent Condition: stable Disposition: PACU Description of Procedure: The patient was seen in the preop holding area consent was obtained then he was brought into the procedure room and placed in supine position. The skin was pr epped with ChloraPrep and draped in a sterile manner. Lidocaine 1% was used to numb the skin up at the entry points which were chosen as follows: For the right ilioinguinal nerve block the anterior superior iliac spine was identified and the ultrasound probe was placed obliquely between the umbilicus and the anterior-superior neck spine. Then the internal oblique abdominal muscle and the fascia between the internal oblique abdominal muscle and the transverse abdominis muscle was identified and was targeted by a 21-gauge 100 mm in length needle then I injected 10 ml of Ropivacaine 0.5 % mixed with 40 mg Depo-injected in this fascial plain between these 2 muscles. I then turned my attention into doing the right genitofemoral nerve block by identifying the spermatic cord and ultrasound and using the same needle to go lateral to the spermatic cord and injecting 5 ml of ropivacaine 0.5% mixed with 40 mg of Depo-Medrol after negative aspiration. Patient tolerated procedure well.
[2021-09-28] MEDS ORDERED: IV FLUID CONTINUATION 1,000 ML IV ONE (09:21)
[2021-09-28 09:25] VITALS: RESP 20
[2021-09-28 09:38] VITALS: BP 122/87; PULSE 75
== END 2021-09-28 10:02 | disposition home or self-care (01) ==
LOC: ORPAIN 08:02
PROVIDERS: ATTEND Specialist
DX: G58.8 Other specified mononeuropathies (principal)
CPT/HCPCS: 64425; J2250; J1030; J3010; J2795; 99152

== ENCOUNTER 2021-11-04 08:03 | Day surgery (SDC) | payer OTHER ==
[2021-11-04 08:24] VITALS: RESP 16; TEMP 97.1
[2021-11-04] MEDS ORDERED: LACTATED RINGERS 1,000 ML IV ONE (08:32)
[2021-11-04] MEDS ORDERED: fentaNYL (PF) 50 MCG/ML 2 ML AMP ONE (08:38)
[2021-11-04] MEDS ORDERED: ROPIVACAINE 5MG/ML 20ML VIAL ONE (08:38)
[2021-11-04] MEDS ORDERED: MIDAZOLAM 2 MG/2 ML VIAL ONE (08:38)
[2021-11-04] MEDS ORDERED: methylPREDNISolone ACETATE 40 MG/ML 1 ML VIAL ONE (08:38)
[2021-11-04 08:46] LABS: Glucose,Whole Blood 136 mg/dL (75-99)
--- NOTE | 2021-11-04 09:05 | P.PCN ---
Date of Procedure: 11/04/21 Procedure(s) Performed: Preoperative Diagnosis: Right ilioinguinal and genitofemoral neuralgia Postoperative Diagnosis: Same as above Procedure(s) Performed: Right ilioinguinal nerve block under ultrasound guidance Anesthesia: moderate sedations with Versed 2 mg ,and Fentanyle 100 Mcg Pathology: none sent Condition: stable Disposition: PACU Description of Procedure: The patient was seen in the preop holding area consent was obtained then he was brought into the procedure room and placed in supine position. The skin was prepped with ChloraPrep and draped in a sterile manner. Lidocaine 1% was used to numb the skin up at the entry points which were chosen as follows: For the right ilioinguinal nerve block the anterior superior iliac spine was identified and the ultrasound probe was placed obliquely between the umbilicus and the anterior-superior neck spine. Then the internal oblique abdominal muscle and the fascia between the internal oblique abdominal muscle and the transverse abdominis muscle was identified and was targeted by a 21-gauge 100 mm in length needle then I injected 25 ml of Ropivacaine 0.5 % mixed with 80 mg Depo-injected in this fascial plain between these 2 muscles. Patient tolerated the procedure well without any complications ,and he'll follow up in the pain clinic in a few weeks
[2021-11-04] MEDS ORDERED: IV FLUID CONTINUATION 1,000 ML IV ONE (09:10)
[2021-11-04 09:15] VITALS: BP 103/66; PULSE 70
== END 2021-11-04 09:50 | disposition home or self-care (01) ==
LOC: ORPAIN 08:03
PROVIDERS: ATTEND Specialist
DX: G58.8 Other specified mononeuropathies (principal)
CPT/HCPCS: 64425; J1040; 99152; 99153

== ENCOUNTER → 2021-12-15 | Outpatient (CLI) | payer OTHER ==
[2021-12-15 13:07] VITALS: BP 110/78; PULSE 76; RESP 18; TEMP 97.9
--- NOTE | 2021-12-15 13:20 | P.PAINPG ---
Objective - Vital Signs Vital signs: Vital Signs Temp 97.9 F 12/15/21 12:56 Pulse 76 12/15/21 12:56 Resp 18 12/15/21 12:56 BP 110/78 12/15/21 12:56 Pulse Ox 97 12/15/21 12:56 FiO2 PQRS Measure Charge Sheet Mode of Arrival: Ambulatory, Cane Comment: A 51 yr old male with a history of severe and chronic low back pain secondary to lumbar degenerative disc diseases and lumbar spondylosis with facet arthropathy presents today for medicaiton refills and evaluation of R ilioinguinal genitofemoral injection. Pt experienced 50% pain relief x 3 weeks s/p procedure. Pain level is currently at 5/10 in intensity, sharp/ tearing/stabbing and constant ever since he had hernia repair surgery. 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 Pain is alleviated with medications (Oxycodone, Zanaflex, Topiramate, Lidocaine cream), heat, morning stretching routine, use of a cane for ambulation, repositioning and rest. Interventional pain procedures completed include R ilioinguinal genitofemoral li gament Patient is currently on Lidocaine cream Patient denies any side effects of the medication(s), denies excessive drowsiness or sleepiness, denies suicidal ideation and reports that the current pain medication is helping to control the pain and improve activities of daily living. Patient denies any motor or sensory deficits. Patient denies any fever or night sweats, denies any change in the bowel movements or urination. Physical Examination: -Constitutional: Cooperative. Not in acute distress . - Neurologic: Cranial nerve II to XII intact. No focal neurological deficits. - Psychatric: Alert & oriented x 3. Matching mood & appropriate affect. Judgment and insight intact. - Musculoskeletal: Cervical spine: Muscle bulk/ tone/ strength in the bilateral upper extremities normal Vertebral body tenderness to palpation over Spurling test positive Distraction test positive Facet loading test positive Thoracic spine Muscle bulk / tone/ strength in the bilateral paraspinal muscles normal Vertebral body tender to palpation over Facet loading test positive Lumbar spine: R groin/inguinal TTP Motor bulk/ tone/ strength lower extremities , thigh and legs : 5/5 Deep tendon reflexes : Normal Knee Jerk. Normal Ankle Jerk . Vertebral body tenderness to palpation over Lumbar Facet Loading Test positive Straight Leg Raise: positive at 30 degrees right side/ left side Gaenslen's Test positive Sacral spine : Severe tenderness over the Sacroiliac joint: right side / left side Range of motion: Flexion of the lumbar spine <60 degrees Range of motion: Extension of the lumbar spine <20 degrees Gaenslen's Test positive Kali's Test positive Ana test: positive right side / left side Thigh Thrust Test Sacral Thrust Test Assessment and plan: Chronic low back pain secondary to lumbar degenerative disc disease , lumbar spondylosis with facet arthropathy without myelopathy Recommendation of R ilioinguinal/ R genitofemoral ligament injection. Risks, benefits of procedure discussed and pt verbalized understanding. Denies anticoagulant use or medical history of diabetes. All patient questions answered MAPS reviewed and it was appropriate. Prescription refill for Lidocaine 4% cream, disp 1 tube w 1 refill I have spent less than 30 minutes on patient care today. Dr Schaffer was available by phone for the evaluation of this patient. The time was used to review the medical records including relevant urine studies and Prescription history (MAPs), review of the available imaging, evaluation and examination of the patient, coordination of care with the medical staff and if applicable referring physicians, as well as creation of the medical record - Pain Location Right Groin Non-Pharmacological Interventions: Heat, Stretching Pharmacological Interventions: Medication, Scheduled Medication, Topical Medication PQRS Narrative: Smoking Status Current every day smoker Blood Pressure 110/78 Pain Intensity [Right Groin] 5 Scale Used Numeric (1 - 10) Hx Alcohol Use (MH) Yes: RARE. Home Medications: Ambulatory Orders Topiramate 50 mg PO BID 10/30/16 oxyCODONE HCL [oxyCODONE HCL (IR)] 10 mg PO BID 06/26/17 Atorvastatin [Lipitor] 40 mg PO HS 10/16/20 [place]/APAP/Caf/Cod 38-157-98-30 [Fioricet w/Cod 81-841-32-30MG] 1 cap PO DAILY PRN 10/16/20 Cholecalciferol [Vitamin D3 (25 Mcg = 1000 Iu)] 50 mcg PO DAILY 10/16/20 FLUoxetine HCL [PROzac] 20 mg PO DAILY 10/16/20 Fluticasone Nasal [place] [Flonase Nasal [place]] 1 spray EA NOSTRIL DAILY PRN 10/16/20 Loratadine [Claritin] 10 mg PO DAILY 10/16/20 Meloxicam [Mobic] 15 mg PO DAILY 10/16/20 metFORMIN HCL [Glucophage] 500 mg PO BID 10/16/20 tiZANidine HCL [Zanaflex] 4 mg PO TID 10/16/20 Galcanezumab-Gnlm [Emgality Pen] 120 mg SQ Q30D 12/10/20 Hydrocortisone Cream [Hydrocortisone 1% Cream] 1 applic TOPICAL DAILY 07/23/21 Pantoprazole Sodium [Protonix] 20 mg PO DAILY 07/26/21 Lidocaine 4% Cream [Lmx 4] 1 applic TOPICAL QAM PRN 30 Days #1 kit 12/15/21 Controlled Substance Measures - Controlled Substance Measures Is patient prescribed a controlled substance at discharge?: No
== END ==
LOC: PNWHC3 12:41
PROVIDERS: ATTEND Specialist
DX: M51.36 Other intervertebral disc degeneration, lumbar region (principal); M47.816 Spondylosis without myelopathy or radiculopathy, lumbar region; G89.29 Other chronic pain; Z88.6 Allergy status to analgesic agent; Z88.0 Allergy status to penicillin; Z91.011 Allergy to milk products; Z91.09 Other allergy status, other than to drugs and biological substances; Z91.013 Allergy to seafood; Z88.1 Allergy status to other antibiotic agents; Z88.5 Allergy status to narcotic agent; Z88.8 Allergy status to other drugs, medicaments and biological substances
CPT/HCPCS: 99211

== ENCOUNTER 2022-02-27 16:55 | Emergency (ER) | payer OTHER ==
[2022-02-27 17:29] VITALS: PULSE 74; RESP 16
--- NOTE | 2022-02-27 17:53 | ED ---
Upper Extremity HPI - General Chief Complaint: Extremity Injury, Upper Stated Complaint: neck & shoulder pain Source: patient, RN notes reviewed Mode of arrival: ambulatory Limitations: no limitations - History of Present Illness Initial Comments: This is a pleasant 51-year-old male with history of diabetes mellitus and chronic pain. Patient already taking muscle relaxers and narcotic pain medication at home. Patient states he has had pain in the left shoulder which seems to shoot to his left shoulder blade and actually down his arm. This is certainly exacerbated by movement. Patient states his been going on since last month. Patient states he believes he did some lifting and moving which may have exacerbated the left shoulder. He is denying any chest pain or shortness of breath. No nausea or vomiting. No diaphoresis. Again, pain is alleviated with rest and exacerbated by movement of the left arm. States he also feels a pulling sensation in his left upper back when he leans his head forward or turns his head from side to side. No headache, no fever or chills, no changes in vision or hearing, no sore throat or difficulty with speech, no neck pain, no chest pain or shortness of breath, no abdominal pain, no nausea or vomiting, no changes in urinano extremity pain, no skin rashes or lesions. MD Complaint: Injury to:: left - Related Data Home Medications Medication Instructions Recorded Confirmed Topiramate 50 mg PO BID 10/30/16 12/15/21 oxyCODONE HCL [oxyCODONE HCL (IR)] 10 mg PO BID 06/26/17 12/15/21 Atorvastatin [Lipitor] 40 mg PO HS 10/16/20 12/15/21 [place]/APAP/Caf/Cod [id number] 1 cap PO DAILY PRN 10/16/20 12/15/21 [Fioricet w/Cod [id number]] Cholecalciferol [Vitamin D3 (25 50 mcg PO DAILY 10/16/20 12/15/21 Mcg = 1000 Iu)] FLUoxetine HCL [PROzac] 20 mg PO DAILY 10/16/20 12/15/21 Fluticasone Nasal [place] [Flonase 1 spray EA NOSTRIL DAILY PRN 10/16/20 12/15/21 Nasal [place]] Loratadine [Claritin] 10 mg PO DAILY 10/16/20 12/15/21 Meloxicam [Mobic] 15 mg PO DAILY 10/16/20 12/15/21 metFORMIN HCL [Glucophage] 500 mg PO BID 10/16/20 12/15/21 tiZANidine HCL [Zanaflex] 4 mg PO TID 10/16/20 12/15/21 Galcanezumab-Gnlm [Emgality Pen] 120 mg SQ Q30D 12/10/20 12/15/21 Hydrocortisone Cream 1 applic TOPICAL DAILY 07/23/21 12/15/21 [Hydrocortisone 1% Cream] Pantoprazole Sodium [Protonix] 20 mg PO DAILY 07/26/21 12/15/21 Previous Rx's Medication Instructions Recorded Lidocaine 4% Cream [Lmx 4] 1 applic TOPICAL QAM PRN 30 Days 12/15/21 #1 kit methylPREDNISolone Dose Pack 4 mg PO DIRECTED #21 tab 02/27/22 [Medrol Dose Pack] Allergies Allergy/AdvReac Type Severity Reaction Status Date / Time aspirin Allergy Swelling Verified 02/27/22 17:29 clindamycin Allergy "burned Verified 02/27/22 17:29 stomach" erythromycin base Allergy Nausea & Verified 02/27/22 17:29 Vomiting. ABD PAIN. Fish Containing Products Allergy throat Verified 02/27/22 17:29 [Fish] swelling fish oil Allergy RASH IN Verified 02/27/22 17:29 MOUTH, FELT LIKE HIS WAS ITCHING "INTERNALLY" hydrocodone bitartrate Allergy Nausea & Verified 02/27/22 17:29 [From Vicodin] Vomiting milk Allergy "locks up Verified 02/27/22 17:29 my body" Penicillins Allergy Rash/Hives Verified 02/27/22 17:29 perfume Allergy Unknown Verified 02/27/22 17:29 pregabalin [From Lyrica] Allergy throat Verified 02/27/22 17:29 swelling gabapentin AdvReac Nausea & Verified 02/27/22 17:29 Vomiting lactose AdvReac Vomiting Verified 02/27/22 17:29 Review of Systems ROS Statement: Those systems with pertinent positive or pertinent negative responses have been documented in the HPI. ROS Other: All systems not noted in ROS Statement are negative. Past Medical History Past Medical History: Diabetes Mellitus, Fibromyalgia, GERD/Reflux, Musculoskeletal Disorder, Osteoarthritis (OA) Additional Past Medical History / Comment(s): DDD, chronic back pain , neck and hip pain. Right Groin pain post hernia repair. Spondylosis, spinal stenosis, right foot fasciitis. MIGRAINE HEADACHE History of Any Multi-Drug Resistant Organisms: None Reported Past Surgical History: Hernia Repair Additional Past Surgical History / Comment(s): Right foot achilles tendon, "cyst on tailbone", pain clinic procedures. Past Anesthesia/Blood Transfusion Reactions: No Reported Reaction, Motion Si ckness Past Psychological History: Anxiety, Depression Smoking Status: Current every day smoker Past Alcohol Use History: None Reported Past Drug Use History: Marijuana - Past Family History Mother Family Medical History: No Reported History General Exam Limitations: no limitations General appearance: alert, in no apparent distress Head exam: Present: atraumatic, normocephalic, normal inspection Eye exam: Present: normal appearance, PERRL, EOMI. Absent: scleral icterus, conjunctival injection, periorbital swelling ENT exam: Present: normal exam, mucous membranes moist Neck exam: Present: normal inspection, full ROM. Absent: tenderness, meningismus, lymphadenopathy Respiratory exam: Present: normal lung sounds bilaterally. Absent: respiratory distress, wheezes, rales, rhonchi, stridor Cardiovascular Exam: Present: regular rate, normal rhythm, normal heart sounds. Absent: systolic murmur, diastolic murmur, rubs, gallop, clicks GI/Abdominal exam: Present: soft, normal bowel sounds. Absent: distended, tenderness, guarding, rebound, rigid Extremities exam: Present: normal inspection, tenderness (Some soft tissue tenderness to the left deltoid and left trapezius area), normal capillary refill. Absent: full ROM (Range of motion is minimally limited with regards to the left shoulder due to pain), pedal edema, joint swelling, calf tenderness Left General: Present: normal inspection Shoulder Exam: Present: tenderness (Tenderness to the supraspinatus and subacromial area. Patient does have a positive empty cans test as well as pain with Dyson maneuver.). Absent: full ROM (Minimal limited range of motion with regards to left shoulder with regards to external rotation, internal rotation and abduction. These all cause pain in the shoulder region.), swelling, abrasion, laceration, ecchymosis, deformity, crepitus, dislocation, erythema, tenderness over AC joint Upper Arm exam: Present: normal inspection Elbow exam: Present: normal inspection, full ROM. Absent: tenderness Forearm Wrist exam: Present: normal inspection, full ROM. Absent: tenderness Hand Wrist exam: Present: normal inspection Neuro motor exam: Present: wrist extension intact, thumb opposition intact, thumb IP flexion intact, thumb adduction intact, fingers 2-5 abduction intact Neurosensory exam: Present: radial nerve intact, ulnar nerve intact, median nerve intact Vascular: Present: normal capillary refill. Absent: vascular compromise, Pallo, pulse deficit radial art, pulse deficit ulnar art Back exam: Present: normal inspection Neurological exam: Present: alert, oriented X3, CN II-XII intact Psychiatric exam: Present: normal affect, normal mood Skin exam: Present: warm, dry, intact, normal color. Absent: rash Course Vital Signs 02/27/22 17:27 Temperature 97.1 F L Pulse Rate 74 Respiratory 16 Rate Blood Pressure 145/88 O2 Sat by Pulse 98 Oximetry Medical Decision Making - Medical Decision Making Patient presents with symptomology consistent with left shoulder impingement syndrome. We will obtain plain film x-rays. Patient will likely need orthopedic referral. This is not consistent with cardiopulmonary disease. Patient was told to return to the ER for any signs or symptoms worsen. Told to return immediately if any other problems arise. All questions answered. Treatment plan discussed. Patient in agreement Every effort has been made to ensure accuracy of this dictation. However, due to the limitations of electronic medical records and dictation devices, errors in charting still occur. Patient's plain film x-ray showed no evidence of acute pathology as read by radiology and myself. I did review all of these films. We'll refer the patient to orthopedics. I'm going to cover the patient with Medrol Dosepak as patient's blood sugars have been in good control with the highest reading over the past few weeks being 140. Patient only takes metformin for type 2 diabetes. We'll have him monitor his sugars closely. Patient has narcotic pain medication and muscle relaxers at home. Patient was told to return to the ER for any signs or symptoms worsen. Told to return immediately if any other problems arise. All questions answered. Treatment plan discussed. Patient in agreement Every effort has been made to ensure accuracy of this dictation. However, due to the limitations of electronic medical records and dictation devices, errors in charting still occur. Professor Of Spanish Dr. Watson - Radiology Data Radiology results: report reviewed, image reviewed Disposition Clinical Impression: Impingement syndrome of left shoulder region Disposition: HOME SELF-CARE Condition: Good Instructions (If sedation given, give patient instructions): Shoulder Impingement Syndrome (ED) Additional Instructions: Call tomorrow a.m. to schedule the appointment with the orthopedic physician. Follow-up with your regular physician as directed. Return to the ER immediately if any symptoms worsen, new symptoms arise, or any other problems develop. Prescriptions: methylPREDNISolone Dose Pack [Medrol Dose Pack] 4 mg PO DIRECTED #21 tab Is patient prescribed a controlled substance at d/c from ED?: No Referrals: Brent Snider DO [Doctor of Osteopathic Medicine] - 03/02/22 Time of Disposition: 18:21
--- NOTE | 2022-02-27 17:54 | XR ---
EXAMINATION TYPE: XR chest 2V DATE OF EXAM: 02/27/2022 COMPARISON: NONE HISTORY: [employer]. TECHNIQUE: 2 views FINDINGS: Heart and mediastinum are normal. Lungs are clear. Diaphragm is normal. Bony thorax appears normal. IMPRESSION: Normal chest
--- NOTE | 2022-02-27 17:55 | XR ---
EXAMINATION TYPE: XR shoulder complete LT DATE OF EXAM: 02/27/2022 COMPARISON: NONE HISTORY: Pain TECHNIQUE: 3 view FINDINGS: There is no sign of fracture nor dislocation. Glenohumeral joint is intact. Joint spaces ar e fairly normal. IMPRESSION: Negative left shoulder exam.
[2022-02-27 18:54] VITALS: BP 132/70; TEMP 97.8
== END 2022-02-27 18:53 | disposition home or self-care (01) ==
LOC: EC 16:55
DX: M75.42 Impingement syndrome of left shoulder (principal); E11.9 Type 2 diabetes mellitus without complications; K21.9 Gastro-esophageal reflux disease without esophagitis; M19.90 Unspecified osteoarthritis, unspecified site; F41.9 Anxiety disorder, unspecified; F32.A Depression, unspecified; F17.200 Nicotine dependence, unspecified, uncomplicated; F12.90 Cannabis use, unspecified, uncomplicated; Z88.6 Allergy status to analgesic agent; Z88.1 Allergy status to other antibiotic agents; Z91.013 Allergy to seafood; Z88.5 Allergy status to narcotic agent; Z91.011 Allergy to milk products; Z88.0 Allergy status to penicillin; Z88.8 Allergy status to other drugs, medicaments and biological substances; Z79.84 Long term (current) use of oral hypoglycemic drugs; Z79.899 Other long term (current) drug therapy; X50.9XXA Other and unspecified overexertion or strenuous movements or postures, initial encounter
CPT/HCPCS: 71046; 99283

== ENCOUNTER → 2022-04-04 | Outpatient (CLI) | payer OTHER ==
[2022-04-04 12:38] VITALS: BP 126/77; PULSE 72; RESP 18; TEMP 98.1
--- NOTE | 2022-04-04 14:53 | P.PAINPG ---
PQRS Measure Charge Sheet Comment: A 51 yr old male with a history of severe and chronic low back pain secondary to lumbar degenerative disc diseases and lumbar spondylosis with facet arthropathy without myelopathy presents today for evaluation of R groin pain. Pain level is currently at 6/10 in intensity, constant, localized in R groin, tearing in character w shooting towards the groin. Pain is provoked by walking for periods of 30 min or more, bending. Pain is alleviated with PT for his lumbar spine in 2020, use of a cane for ambulation, heat, ice, laying supine, repositioning and rest. Interventional pain procedures completed include R ilioinguinal injection x3, R genitofemoral injection x2. Patient is currently on Oxycodone, Zanaflex, Mobic, Lidocaine 5% cream Patient denies any side effects of the medication(s), denies excessive drowsiness or sleepiness, denies suicidal ideation and reports that the current pain medication is helping to control the pain and improve activities of daily living. Patient denies any motor or sensory deficits. Patient denies any fever or night sweats, denies any change in the bowel movements or urination. Physical Examination: -Constitutional: Cooperative. Not in acute distress . - Neurologic: Cranial nerve II to XII intact. No focal neurological deficits. - Psychatric: Alert & oriented x 3. Matching mood & appropriate affect. Judgment and insight intact. - Musculoskeletal: Cervical spine: Muscle bulk/ tone/ strength in the bilateral upper extremities normal Vertebral body tenderness to palpation over Spurling test positive Distraction test positive Facet loading test positive Thoracic spine Muscle bulk / tone/ strength in the bilateral paraspinal muscles normal Vertebral body tender to palpation over Facet loading test positive Lumbar spine: R groin TTP Motor bulk/ tone/ strength lower extremities , thigh and legs : 5/5 Deep tendon reflexes : Normal Knee Jerk. Normal Ankle Jerk . Vertebral body tenderness to palpation over Lumbar Facet Loading Test positive Straight Leg Raise: positive at 30 degrees right side/ left side Gaenslen's Test positive Sacral spine : Severe tenderness over the Sacroiliac joint: right side / left side Range of motion: Flexion of the lumbar spine <60 degrees Range of motion: Extension of the lumbar spine <20 degrees Gaenslen's Test positive Kali's Test positive Ana test: positive right side / left side Thigh Thrust Test Sacral Thrust Test Assessment and plan: Chronic low back pain secondary to lumbar degenerative disc disease , lumbar spondylosis with facet arthropathy without myelopathy Recommendation of R ilioinguinal / R genitofemoral injection. May need a series of injections, up to every 3 mo, for optimal pain relief. Risks, benefits of procedure discussed and pt verbalized understanding. Admits to anticoagulant use or medical history of diabetes. Protocol for discontinuation/ continuation of medications sofiya procedure discussed. All patient questions answered MAPS reviewed and it was appropriate. Prescription refill for Lidocaine cream 4% disp 1 tube w 1 RF I have spent less than 30 minutes on patient care today. Dr Schaffer was available by phone for the evaluation of this patient. The time was used to review the medical records including relevant urine studies and Prescription history (MAPs), review of the available imaging, evaluation and examination of the patient, coordination of care with the medical staff and if applicable referring physicians, as well as creation of the medical record - Pain Location Right Groin Non-Pharmacological Interventions: Heat, Ice, Inactivity, Position/Reposition Pharmacological Interventions: Block, Medication, Scheduled Medication, Topical Medication PQRS Narrative: Smoking Status Current every day smoker Hx Alcohol Use (MH) Yes: RARE. Home Medications: Ambulatory Orders Topiramate 50 mg PO BID 10/30/16 oxyCODONE HCL [oxyCODONE HCL (IR)] 10 mg PO BID 06/26/17 Atorvastatin [Lipitor] 40 mg PO HS 10/16/20 [place]/APAP/Caf/Cod [id number] [Fioricet w/Cod 63-506-93-30MG] 1 cap PO DAILY PRN 10/16/20 Cholecalciferol [Vitamin D3 (25 Mcg = 1000 Iu)] 50 mcg PO DAILY 10/16/20 FLUoxetine HCL [PROzac] 20 mg PO DAILY 10/16/20 Fluticasone Nasal [place] [Flonase Nasal [place]] 1 spray EA NOSTRIL DAILY PRN 10/16/20 Loratadine [Claritin] 10 mg PO DAILY 10/16/20 Meloxicam [Mobic] 15 mg PO DAILY 10/16/20 metFORMIN HCL [Glucophage] 500 mg PO BID 10/16/20 tiZANidine HCL [Zanaflex] 4 mg PO TID 10/16/20 Galcanezumab-Gnlm [Emgality Pen] 120 mg SQ Q30D 12/10/20 Hydrocortisone Cream [Hydrocortisone 1% Cream] 1 applic TOPICAL DAILY 07/23/21 Pantoprazole Sodium [Protonix] 20 mg PO DAILY 07/26/21 methylPREDNISolone Dose Pack [Medrol Dose Pack] 4 mg PO DIRECTED #21 tab 02/27/22 Lidocaine 4% Cream [Lmx 4] 1 applic TOPICAL QAM PRN 30 Days #1 kit 04/04/22 Controlled Substance Measures - Controlled Substance Measures Is patient prescribed a controlled substance at discharge?: No
== END ==
LOC: PNWHC3 11:57
PROVIDERS: ATTEND Specialist
DX: M47.816 Spondylosis without myelopathy or radiculopathy, lumbar region (principal); M51.36 Other intervertebral disc degeneration, lumbar region; G89.29 Other chronic pain; Z79.01 Long term (current) use of anticoagulants; E11.9 Type 2 diabetes mellitus without complications; Z79.84 Long term (current) use of oral hypoglycemic drugs; F17.200 Nicotine dependence, unspecified, uncomplicated; Z88.0 Allergy status to penicillin; Z91.011 Allergy to milk products; Z91.048 Other nonmedicinal substance allergy status; Z88.8 Allergy status to other drugs, medicaments and biological substances; Z88.5 Allergy status to narcotic agent; Z88.6 Allergy status to analgesic agent; Z88.1 Allergy status to other antibiotic agents; Z91.013 Allergy to seafood
CPT/HCPCS: 99211

== ENCOUNTER 2022-04-14 06:36 | Day surgery (SDC) | payer OTHER ==
[2022-04-12 09:36] VITALS: BMI 28.1
[~2022-04-14 06:36] MED LIST changes: -LACTATED RINGERS 1,000 ML IV SCH
[2022-04-14 07:08] VITALS: RESP 18; TEMP 97
[2022-04-14] MEDS: LACTATED RINGERS 1,000 ML IV SCH ×2 (07:12→07:29)
[2022-04-14 07:16] LABS: Glucose,Whole Blood 126 mg/dL (70-110)
[2022-04-14] MEDS ORDERED: methylPREDNISolone ACETATE 40 MG/ML 1 ML VIAL ONE (07:31)
[2022-04-14] MEDS ORDERED: ROPIVACAINE 5 MG/ML 20 ML AMPULE ONE (07:31)
[2022-04-14] MEDS ORDERED: fentaNYL (PF) 50 MCG/ML 2 ML AMP ONE (07:31)
[2022-04-14] MEDS ORDERED: MIDAZOLAM 2 MG/2 ML VIAL ONE (07:31)
--- NOTE | 2022-04-14 07:53 | P.PCN ---
Date of Procedure: 04/14/22 Procedure(s) Performed: Preoperative Diagnosis: Right ilioinguinal and genitofemoral neuralgia Postoperative Diagnosis: Same as above Procedure(s) Performed: Right ilioinguinal nerve ,and right genitofemoral nerve block under ultrasound guidance Anesthesia: moderate sedations with Versed 2 mg ,and Fentanyle 50 Mcg. Sedation start time 0 733. End time 075 Pathology: none sent Condition: stable Disposition: PACU Description of Procedure: The patient was seen in the preop holding area consent was obtained then he was brought into the procedure room and placed in supine position. The skin was prepped with ChloraPrep and draped in a sterile manner. Lidocaine 1% was used to numb the skin up at the entry points which were chosen as follows: For the right ilioinguinal nerve block the anterior superior iliac spine was identified and the ultrasound probe was placed obliquely between the umbilicus and the anterior-superior neck spine. Then the internal oblique abdominal muscle and the fascia between the internal oblique abdominal muscle and the transverse abdominis muscle was identified and was targeted by a 21-gauge 100 mm in length needle then I injected 10 ml of Ropivacaine 0.5 % mixed with 20 mg Depo-injected in this fascial plain between these 2 muscles. Then after that the genitofemoral nerve block done using 21-gauge needle, advanced at the location of the right genitofemoral nerve and total of 5 ML of ropivacaine 0.5% mixed with 20 mg of Depo-Medrol injected after negative aspiration, Patient tolerated the procedure well without any complications ,and he will follow up in the pain clinic in a few weeks
[2022-04-14] MEDS ORDERED: IV FLUID CONTINUATION 1,000 ML IV ONE (07:55)
[2022-04-14 08:14] VITALS: BP 110/73; PULSE 79
== END 2022-04-14 08:24 | disposition home or self-care (01) ==
LOC: ORPAIN 06:36
PROVIDERS: ATTEND Specialist
DX: G57.82 Other specified mononeuropathies of left lower limb (principal)
CPT/HCPCS: 64425; 64450; J2250; J1030; J3010; J2795; 99152

== ENCOUNTER → 2022-04-28 | Outpatient (CLI) | payer OTHER ==
[2022-04-28 13:36] VITALS: BP 123/76; PULSE 87; RESP 18; TEMP 98.1
--- NOTE | 2022-04-28 14:24 | P.PAINPG ---
PQRS Measure Charge Sheet Comment: A 51 yr old male with a history of severe and chronic low back pain secondary to lumbar DDD and spondylosis with facet arthropathy without myelopathy presents today for evaluation s/p R ilioinguinal/ genitofemoral injection. Pt states he experienced 60 % pain relief x 2 wks s/p procedure. Pain level is currently at 4/10 in intensity, constant, localized in the L inner groin/ thigh, stabbing in character w shooting towards the inner thigh. Pain is provoked by walking for periods of 5 min or more. Pain is alleviated with meds, topicals, home stretching regimen, repositioning and rest. Interventional pain procedures completed include R ilioinguinal/genitofemoral Patient is currently on Percocet, Zanaflex Patient denies any side effects of the medication(s), denies excessive drowsiness or sleepiness, denies suicidal ideation and reports that the current pain medication is helping to control the pain and improve activities of daily living. Patient denies any motor or sensory deficits. Patient denies any fever or night sweats, denies any change in the bowel movements or urination. Physical Examination: -Constitutional: Cooperative. Not in acute distress . - Neurologic: Cranial nerve II to XII intact. No focal neurological deficits. - Psychatric: Alert & oriented x 3. Matching mood & appropriate affect. Judgment and insight intact. - Musculoskeletal: Cervical spine: Muscle bulk/ tone/ strength in the bilateral upper extremities normal Vertebral body tenderness to palpation over Spurling test positive Distraction test positive Facet loading test positive Thoracic spine Muscle bulk / tone/ strength in the bilateral paraspinal muscles normal Vertebral body tender to palpation over Facet loading test positive Lumbar spine: Motor bulk/ tone/ strength lower extremities , thigh and legs : 5/5 Deep tendon reflexes : Normal Knee Jerk. Normal Ankle Jerk . Vertebral body tenderness to palpation over Lumbar Facet Loading Test positive Straight Leg Raise: positive at 30 degrees right side/ left side Gaenslen's Test positive Sacral spine : Severe tenderness over the Sacroiliac joint: right side / left side Range of motion: Flexion of the lumbar spine <60 degrees Range of motion: Extension of the lumbar spine <20 degrees Gaenslen's Test positive Ana test: positive right side / left side Thigh Thrust Test Sacral Thrust Test Assessment and plan: Chronic low back pain secondary to lumbar degenerative disc disease, spondylosis with facet arthropathy without myelopathy Patient exhibited sufficient and satisfactory pain relief with prior procedure. He will manage residual pain with home pain management extremities and may return to our clinic on an as needed basis. Risks, benefits of procedure discussed and pt verbalized understanding. Denies anticoagulant use or medical history of diabetes. All patient questions answered I have spent less than 30 minutes on patient care today. Dr Schaffer was available by phone for the evaluation of this patient. The time was used to review the medical records including relevant urine studies and Prescription history (MAPs), review of the available imaging, evaluation and examination of the patient, coordination of care with the medical staff and if applicable referring physicians, as well as creation of the medical record PQRS Narrative: Smoking Status Current every day smoker Hx Alcohol Use (MH) Yes: RARE. Home Medications: Ambulatory Orders Topiramate 50 mg PO BID 10/30/16 oxyCODONE HCL [oxyCODONE HCL (IR)] 10 mg PO BID 06/26/17 Atorvastatin [Lipitor] 40 mg PO HS 10/16/20 Buta/APAP/Caf/Cod 77-537-64-30 [Fioricet w/Cod 84-285-43-30MG] 1 cap PO DAILY PRN 10/16/20 Cholecalciferol [Vitamin D3 (25 Mcg = 1000 Iu)] 50 mcg PO DAILY 10/16/20 FLUoxetine HCL [PROzac] 20 mg PO DAILY 10/16/20 Fluticasone Nasal Nettie [Flonase Nasal Nettie] 1 spray EA NOSTRIL DAILY PRN 10/16/20 Loratadine [Claritin] 10 mg PO DAILY 10/16/20 Meloxicam [Mobic] 15 mg PO DAILY 10/16/20 metFORMIN HCL [Glucophage] 500 mg PO BID 10/16/20 tiZANidine HCL [Zanaflex] 4 mg PO TID 10/16/20 Galcanezumab-Gnlm [Emgality Pen] 120 mg SQ Q30D 12/10/20 Hydrocortisone Cream [Hydrocortisone 1% Cream] 1 applic TOPICAL DAILY 07/23/21 Pantoprazole Sodium [Protonix] 20 mg PO DAILY 07/26/21 Lidocaine 4% Cream [Lmx 4] 1 applic TOPICAL QAM PRN 30 Days #1 kit 04/04/22 Controlled Substance Measures - Controlled Substance Measures Is patient prescribed a controlled substance at discharge?: No
== END ==
LOC: PNWHC3 12:30
PROVIDERS: ATTEND Specialist
DX: M47.816 Spondylosis without myelopathy or radiculopathy, lumbar region (principal); M51.36 Other intervertebral disc degeneration, lumbar region; G89.29 Other chronic pain; F17.200 Nicotine dependence, unspecified, uncomplicated; Z88.0 Allergy status to penicillin; Z88.5 Allergy status to narcotic agent; Z91.011 Allergy to milk products; Z88.8 Allergy status to other drugs, medicaments and biological substances; Z88.1 Allergy status to other antibiotic agents; Z91.013 Allergy to seafood; Z88.6 Allergy status to analgesic agent; Z91.048 Other nonmedicinal substance allergy status
CPT/HCPCS: 99211

== ENCOUNTER → 2022-10-05 | Outpatient (CLI) | payer OTHER ==
[2022-10-05 11:13] LABS: Basophils # (A) 0.02 X 10*3/uL (0.00-0.10); Basophils % (A) 0.4 %; Eosinophils # (A) 0.04 X 10*3/uL (0.04-0.35); Eosinophils % (A) 0.7 %; HCT 49.5 % (39.6-50.0); HGB 15.7 g/dL (13.0-17.0); Immature Grans, Automated 0.4 %; Lymphocytes # (A) 1.56 X 10*3/uL (0.90-5.00); Lymphocytes % (A) 28.1 %; MCH 31.4 pg (27.0-32.0); MCHC 31.7 g/dL (32.0-37.0); Mean Platelet Volume 10.5 fL (9.5-12.2); Monocytes # (A) 0.49 X 10*3/uL (0.20-1.00); Monocytes % (A) 8.8 %; NRBC Per 100 WBC 0 /100 WBCS (0.0-0.0); Neutrophils # (A) 3.43 X 10*3/uL (1.80-7.70); Neutrophils % (A) 61.6 %; Platelet Count 238 X 10*3/uL (140-440); RDW 13.2 % (11.5-14.5); WBC 5.56 X 10*3/uL (4.50-10.00)
[2022-10-05 11:29] LABS: African American GFR (CKD) 100.6 (60.0-200.0); BUN/Creat Ratio 12.1 Ratio (12.00-20.00); Blood Urea Nitrogen 12.1 mg/dL (9.0-27.0); Calcium 9.9 mg/dL (8.7-10.3); Non-African American GFR(CKD) 86.8 (60.0-200.0); Potassium 5.3 mmol/L (3.5-5.5)
== END | disposition home or self-care (01) ==
LOC: LABPAT 07:39
PROVIDERS: ATTEND Orthopaedic Surgery Hand Surgery
DX: Z01.812 Encounter for preprocedural laboratory examination (principal); I49.8 Other specified cardiac arrhythmias; G56.02 Carpal tunnel syndrome, left upper limb
CPT/HCPCS: 80048; 85025; 93005

== ENCOUNTER 2022-10-12 07:55 | Day surgery (SDC) | payer OTHER ==
--- NOTE | 2022-10-10 08:51 | P.HPOR ---
History of Present Illness H&P Date: 10/10/22 Subjective: This is a 51 year old male that presents today for follow up evaluation regarding worsening LUE numbness and tingling. He denies any injury or inciting event. He is on meloxicam and oxycodone for back pain. He has noticed over the last several months a warm and tingling feeling traveling down his arm all the way to the tips of the middle and ring finger that is constant. He has tried night bracing which has temporarily relieved his symptoms but they have return ed. He has also had 2 steroid injection into the carpal tunnel by neurology which he states helped drastically but his symptoms have returned. He recently underwent EMG and is here to discuss results. Physical Examination: LUE: AIN/PIN/Radial/Ulnar/Median motor intact. Radial/Ulnar/Median SILT. 2+/4 Radial/Ulnar pulses palpated. 5/5 APB, 5/5 FDI. Negative Finkelsteins, negative CMC grind, positive Durkan's compression. EMG/NCV: Demonstrates mild carpal tunnel syndrome, evidence of C6-7 nerve root irritation. Impression: 1.) Left carpal tunnel syndrome 2.) LUE cervical radiculopathy Plan: Diagnosis and treatment options were discussed with the patient. He has failed conservative treatment for his carpal tunnel syndrome and would like to pursue endoscopic vs open left carpal tunnel release. Findings of co-existing C6-7 nerve root irritation were discussed and I explained this would not address any radiculopathic symptoms but he seems to have responded well temporarily to carpal tunnel steroid injection therefore I believe he will benefit from surgical intervention. Risks and benefits of surgery including bleeding, infection, damage to surrounding tissue, need for further surgery, possible need to convert to open procedure, residual numbness were discussed and the patient wished to go forward with surgery. -Aryan Rueda DO Orthopedic Hand/Upper Extremity Surgeon Past Medical History Past Medical History: Diabetes Mellitus, Fibromyalgia, GERD/Reflux, Musculoskeletal Disorder, Osteoarthritis (OA) Additional Past Medical History / Comment(s): DDD, chronic back pain , neck and hip pain. Right Groin pain post hernia repair. Spondylosis, spinal stenosis, right foot fasciitis. MIGRAINE HEADACHE History of Any Multi-Drug Resistant Organisms: None Reported Past Surgical History: Hernia Repair Additional Past Surgical History / Comment(s): Right foot achilles tendon, "cyst on tailbone", pain clinic procedures. Past Anesthesia/Blood Transfusion Reactions: No Reported Reaction, Motion Sickness Past Psychological History: Anxiety, Depression Smoking Status: Current every day smoker Past Alcohol Use History: None Reported Additional Past Alcohol Use History / Comment(s): STARTED SMOKING AT AGE 16, SMOKES 1PPD. Past Drug Use History: Marijuana Additional Drug Use History / Comment(s): Uses medical marijuana daily. Aware no use 24 hrs prior to procedure. - Past Family History Mother Family Medical History: No Reported History Medications and Allergies Home Medications Medication Instructions Recorded Confirmed Type Topiramate 50 mg PO BID 10/30/16 04/28/22 History oxyCODONE HCL [oxyCODONE HCL (IR)] 10 mg PO BID 06/26/17 04/28/22 History Atorvastatin [Lipitor] 40 mg PO HS 10/16/20 04/28/22 History Buta/APAP/Caf/Cod [id number] 1 cap PO DAILY PRN 10/16/20 04/28/22 History [Fioricet w/Cod 32-530-58-30MG] Cholecalciferol [Vitamin D3 (25 50 mcg PO DAILY 10/16/20 04/28/22 History Mcg = 1000 Iu)] FLUoxetine HCL [PROzac] 20 mg PO DAILY 10/16/20 04/28/22 History Fluticasone Nasal Diana [Flonase 1 spray EA NOSTRIL DAILY PRN 10/16/20 04/28/22 History Nasal Diana] Loratadine [Claritin] 10 mg PO DAILY 10/16/20 04/28/22 History Meloxicam [Mobic] 15 mg PO DAILY 10/16/20 04/28/22 History metFORMIN HCL [Glucophage] 500 mg PO BID 10/16/20 04/28/22 History tiZANidine HCL [Zanaflex] 4 mg PO TID 10/16/20 04/28/22 History Galcanezumab-Gnlm [Emgality Pen] 120 mg SQ Q30D 12/10/20 04/28/22 History Hydrocortisone Cream 1 applic TOPICAL DAILY 07/23/21 04/28/22 History [Hydrocortisone 1% Cream] Pantoprazole Sodium [Protonix] 20 mg PO DAILY 07/26/21 04/28/22 History Lidocaine 4% Cream [Lmx 4] 1 applic TOPICAL QAM PRN 30 Days 04/04/22 04/28/22 Rx #1 kit Allergies Allergy/AdvReac Type Severity Reaction Status Date / Time aspirin Allergy Swelling Verified 04/28/22 13:39 clindamycin Allergy "burned Verified 04/28/22 13:39 stomach" erythromycin base Allergy Nausea & Verified 04/28/22 13:39 Vomiting. ABD PAIN. Fish Containing Products Allergy throat Verified 04/28/22 13:39 [Fish] swelling fish oil Allergy RASH IN Verified 04/28/22 13:39 MOUTH, FELT LIKE HIS WAS ITCHING "INTERNALLY" hydrocodone bitartrate Allergy Nausea & Verified 04/28/22 13:39 [From Vicodin] Vomiting milk Allergy "locks up Verified 04/28/22 13:39 my body" Penicillins Allergy Rash/Hives Verified 04/28/22 13:39 perfume Allergy Unknown Verified 04/28/22 13:39 pregabalin [From Lyrica] Allergy throat Verified 04/28/22 13:39 swelling gabapentin AdvReac Nausea & Verified 04/28/22 13:39 Vomiting lactose AdvReac Vomiting Verified 04/28/22 13:39 Physical Examination Osteopathic Statement: *. No significant issues noted on an osteopathic structural exam other than those noted in the History and Physical/Consult.
[2022-10-10 16:10] VITALS: BMI 27.8
[~2022-10-12 07:55] MED LIST changes: +DEXAMETHASONE SOD PHOSPHATE 4 MG/ML 1 ML VIAL IV ONE; +HYDROmorphone 0.5 MG/0.5 ML SYRINGE IVP PRN; +LACTATED RINGERS 1,000 ML IV SCH; +MIDAZOLAM 2 MG/2 ML VIAL IV PRN; +ONDANSETRON 4 MG/2 ML VIAL IVP ONE; +Pre Op ABX Message 1 EACH MISC MISCELLANE ONE
[2022-10-12 08:13] VITALS: TEMP 97.2
[2022-10-12 08:25] LABS: Glucose,Whole Blood 96 mg/dL (70-110)
[2022-10-12] MEDS ORDERED: MIDAZOLAM 2 MG/2 ML VIAL IVP ONE (08:29)
[2022-10-12] MEDS ORDERED: fentaNYL (PF) 50 MCG/ML 2 ML AMP ONE (08:55)
[2022-10-12] MEDS ORDERED: LIDOCAINE 2% INJ 20 MG/ML (2 ML VIAL) ONE (08:55)
[2022-10-12] MEDS ORDERED: MIDAZOLAM 2 MG/2 ML VIAL ONE (08:55)
[2022-10-12] MEDS ORDERED: PROPOFOL 10 MG/ML 20 ML VIAL IV ONE (08:55)
[2022-10-12] MEDS ORDERED: BUPIVACAINE (PF) 0.5% 30 ML VIAL SQ ONE ×2 (08:56→09:03)
[2022-10-12] MEDS ORDERED: LIDOCAINE 2% (PF) 20 MG/ML 10 ML AMP SQ ONE ×2 (08:57→09:03)
--- NOTE | 2022-10-12 09:25 | P.OP ---
Date of Procedure: 10/12/22 Preoperative Diagnosis: Left carpal tunnel syndrome Postoperative Diagnosis: Left carpal tunnel syndrome Procedure(s) Performed: Left endoscopic carpal tunnel release Anesthesia: MAC Surgeon: Aryan Rueda Tinsmith Apprentice #1: Heron Jay Pathology: none sent Condition: stable Disposition: PACU Description of Procedure: This is a 52 year old male who presents today for a left endoscopic carpal tunnel release after having failed conservative treatment in the past. Risks and benefits of surgery were discussed with the patient including bleeding, damage to surrounding tissue, infection, need to convert to open procedure, need for further surgery as well as risks of anesthesia including pulmonary embolism and even and the patient wished to proceed with surgical intervention. The patients was seen in the pre-operative area by myself. Consent and H&P were completed and updated. The correct extremity was marked in the pre-operative area by myself and all other questions were answered. Operative Narrative: The patient was brought to the operating room by the department of anesthesia. They remained on the portable stretcher and a rolling hand table was brought to the side of the operative extremity. Pre-operative time out was performed indicating the correct patient, procedure and laterality. All in the room agreed. The patient was then drifted off to sleep by the department of anesthesia. MAC anesthesia was utilized and a 50:50 mixture of 1% Lidocaine and 0.5% bupivacaine was injected into the subcutaneous tissues of the palmar skin, 8ccs total. A nonsterile tourniquet was then applied to the operative extremity and the left upper extremity was then prepped and draped in normal sterile fashion. The operative extremity was the exsanguinated with an esmarch bandage and the tourniquet was inflated to 250mmHg. 15 blade scalpel was utilized to make a transverse incision on the palmar skin just ulnar to the palmaris longus tendon at the level of the distal wrist crease. Ragnell retractor was then placed radially and blunt dissection was performed to reveal the distal forearm fascia. This was lifted with fine Gerardo pick ups and Littler tenotomy scissors were then used to open the forearm fascia transversely and a double skin hook was then placed. Hamate finder was placed into the carpal tunnel and then sequential sized dilators were inserted followed by the synovial elevator to separate the flexor tenosynovium from the undersurface of the transverse carpal ligament and a washboard texture was felt. The MicroAire endoscopic carpal tunnel release system gun was the then inserted into the carpal tunnel hugging the deep portion of the transverse carpal ligament in line with the base of the ring finger. Transverse fibers of the ligament were directly visualized. Pressure was applied on the palm to reveal the distal extent of the transverse carpal ligament. The blade was then deployed and the distal half of the transverse carpal ligament was released. The scope was then brought distal again and remaining transverse fibers were incised with the blade. The proximal half of the transverse carpal ligament was then divided and again the scope was advanced distal and remaining transverse fibers were incised with the blade. The radial and ulnar leaflets were directly visualized and mobile consistent with complete release. Tenotomy scissors were then utilized to release the remaining distal forearm fascia under direct visualization taking care to preserve the palmar cutaneous branch of the median nerve. Skin closure was performed with interrupted 4-0 Monocryl suture followed by Mastisol and steri strips. Sterile dressing was applied consisting of adaptic, 4x4s, Webril, and an nando bandage. Tourniquet was let down and the hand immediately was well perfused. The patient was then woken by the department of anesthesia and transferred to PACU in stable condition. Heron VILLEGAS was present for the case in its entirety and assisted in major portions of the case and protection of vital neurovascular structures. Aryan Rueda D.O. Orthopedic Hand/Upper Extremity Surgeon
[2022-10-12 09:39] VITALS: PULSE 56; RESP 18
[2022-10-12 09:51] VITALS: BP 113/76
== END 2022-10-12 10:17 | disposition home or self-care (01) ==
LOC: OR 07:55
PROVIDERS: ATTEND Orthopaedic Surgery Hand Surgery
DX: G56.02 Carpal tunnel syndrome, left upper limb (principal); E11.9 Type 2 diabetes mellitus without complications; K21.9 Gastro-esophageal reflux disease without esophagitis; M19.90 Unspecified osteoarthritis, unspecified site; Z98.890 Other specified postprocedural states; F41.9 Anxiety disorder, unspecified; F32.A Depression, unspecified; F17.210 Nicotine dependence, cigarettes, uncomplicated; Z79.899 Other long term (current) drug therapy; Z79.84 Long term (current) use of oral hypoglycemic drugs; Z79.1 Long term (current) use of non-steroidal anti-inflammatories (NSAID)
CPT/HCPCS: 29848; J2250; J1100; J2001 ×2; J2405; J3010; J2704

== ENCOUNTER → 2022-12-19 | Outpatient (CLI) | payer OTHER ==
--- NOTE | 2022-12-19 14:53 | US ---
EXAMINATION TYPE: US arterial LE single level DATE OF EXAM: 12/19/2022 2:38 PM CLINICAL INDICATION: Male, 52 years old with history of I73.9 PERIPHERAL VASCULAR DISEASE, UNSPECIFIE D; recent broken right foot History of: Smoker: y Hypertension: n Diabetic: y Hyperlipidemia: y TIA/CVA: n Previous Vascular Surgery: n CAD: n HI: n Vascular Ulcers: n Claudication: n Gangrene: n Doppler Waveforms: Right: Multiphasic Left: Multiphasic Right Brachial Pressure: 106 Left Brachial Pressure: 115 Ankle-Brachial Indices: Right: 1.1 Left: 1.1 Toe Brachial Indices: Right: 0.7 Left: 0.8 (Vessel hardening > 1.4; Normal 0.9 - 1.4, Moderate 0.7 - 0.9, Severe 0.5-0.7) IMPRESSION: Moderate bilateral peripheral vascular disease.
== END | disposition home or self-care (01) ==
LOC: RADUSWWP 14:11
PROVIDERS: ATTEND Podiatrist Foot & Ankle Surgery
DX: I73.9 Peripheral vascular disease, unspecified (principal); E11.51 Type 2 diabetes mellitus with diabetic peripheral angiopathy without gangrene; E78.5 Hyperlipidemia, unspecified; F17.200 Nicotine dependence, unspecified, uncomplicated
CPT/HCPCS: 93922

== ENCOUNTER → 2023-01-09 | Outpatient (CLI) | payer OTHER ==
--- NOTE | 2023-01-09 14:44 | P.PAINPG ---
PQRS Measure Charge Sheet Comment: A 51 yr old male with a history of severe and chronic low back pain secondary to lumbar DDD and spondylosis with facet arthropathy without myelopathy presents today for evaluation. Pain level is currently at 8/10 in intensity, constant, localized in the R inner groin/ thigh, stabbing in character w shooting towards the R inner thigh. Pain is provoked by walking for periods of 5 min or more. Pain is alleviated with meds, topicals, home stretching regimen, repositioning and rest. Oswestry axial pain score of 30. Interventional pain procedures completed include R ilioinguinal/genitofemoral Patient is currently on Percocet, Zanaflex Patient denies any side effects of the medication(s), denies excessive drowsiness or sleepiness, denies suicidal ideation and reports that the current pain medication is helping to control the pain and improve activities of daily living. Patient denies any motor or sensory deficits. Patient denies any fever or night sweats, denies any change in the bowel movements or urination. Physical Examination: -Constitutional: Cooperative. Not in acute distress . - Neurologic: Cranial nerve II to XII intact. No focal neurological deficits. - Psychatric: Alert & oriented x 3. Matching mood & appropriate affect. Judgment and insight intact. - Musculoskeletal: Cervical spine: Muscle bulk/ tone/ strength in the bilateral upper extremities normal Vertebral body tenderness to palpation over Spurling test positive Distraction test positive Facet loading test positive Thoracic spine Muscle bulk / tone/ strength in the bilateral paraspinal muscles normal Vertebral body tender to palpation over Facet loading test positive Lumbar spine: R groin TTP Motor bulk/ tone/ strength lower extremities , thigh and legs : 5/5 Deep tendon reflexes : Normal Knee Jerk. Normal Ankle Jerk . Vertebral body tenderness to palpation over Lumbar Facet Loading Test positive Straight Leg Raise: positive at 30 degrees right side/ left side Gaenslen's Test positive Sacral spine : Severe tenderness over the Sacroiliac joint: right side / left side Range of motion: Flexion of the lumbar spine <60 degrees Range of motion: Extension of the lumbar spine <20 degrees Gaenslen's Test positive Ana test: positive right side / left side Thigh Thrust Test Sacral Thrust Test Assessment and plan: Chronic low back pain secondary to lumbar degenerative disc disease, spondylosis with facet arthropathy without myelopathy Recommendation of R ilioinguinal/ genitofemoral injection. Risks, benefits of procedure discussed and pt verbalized understanding. Denies anticoagulant use or medical history of diabetes. All patient questions answered I have spent less than 30 minutes on patient care today. Dr Schaffer was available by phone for the evaluation of this patient. The time was used to review the medical records including relevant urine studies and Prescription history (MAPs), review of the available imaging, evaluation and examination of the patient, coordination of care with the medical staff and if applicable referring physicians, as well as creation of the medical record PQRS Narrative: Smoking Status Current every day smoker Hx Alcohol Use (MH) Yes: RARE. Home Medications: Ambulatory Orders Topiramate 50 mg PO BID 10/30/16 oxyCODONE HCL [oxyCODONE HCL (IR)] 10 mg PO BID 06/26/17 Atorvastatin [Lipitor] 40 mg PO HS 10/16/20 Buta/APAP/Caf/Cod [id number] [Fioricet w/Cod 57-405-52-30MG] 1 cap PO DAILY PRN 10/16/20 Cholecalciferol [Vitamin D3 (25 Mcg = 1000 Iu)] 50 mcg PO DAILY 10/16/20 FLUoxetine HCL [PROzac] 20 mg PO DAILY 10/16/20 Fluticasone Nasal Cuddy [Flonase Nasal Cuddy] 1 spray EA NOSTRIL DAILY PRN 10/16/20 Loratadine [Claritin] 10 mg PO DAILY 10/16/20 Meloxicam [Mobic] 15 mg PO DAILY 10/16/20 metFORMIN HCL [Glucophage] 500 mg PO BID 10/16/20 tiZANidine HCL [Zanaflex] 4 mg PO TID 10/16/20 Galcanezumab-Gnlm [Emgality Pen] 120 mg SQ Q30D 12/10/20 Hydrocortisone Cream [Hydrocortisone 1% Cream] 1 applic TOPICAL DAILY 07/23/21 Pantoprazole Sodium [Protonix] 20 mg PO DAILY 07/26/21 Lidocaine 4% Cream [Lmx 4] 1 applic TOPICAL QAM PRN 30 Days #1 kit 04/04/22 tiZANidine HCL [Zanaflex] 4 mg PO TID PRN 10/12/22 Controlled Substance Measures - Controlled Substance Measures Is patient prescribed a controlled substance at discharge?: No
[2023-01-09 14:47] VITALS: BP 108/73; PULSE 69; RESP 16; TEMP 98.2
== END ==
LOC: PNWHC3 14:04
PROVIDERS: ATTEND Specialist
DX: M51.36 Other intervertebral disc degeneration, lumbar region (principal); M47.816 Spondylosis without myelopathy or radiculopathy, lumbar region; G89.29 Other chronic pain; F17.200 Nicotine dependence, unspecified, uncomplicated; Z88.6 Allergy status to analgesic agent; Z88.1 Allergy status to other antibiotic agents; Z91.02 Food additives allergy status; Z91.013 Allergy to seafood; Z91.011 Allergy to milk products; Z88.0 Allergy status to penicillin; Z88.5 Allergy status to narcotic agent; Z88.8 Allergy status to other drugs, medicaments and biological substances; Z11.9 Encounter for screening for infectious and parasitic diseases, unspecified; Z79.84 Long term (current) use of oral hypoglycemic drugs
CPT/HCPCS: 99211

== ENCOUNTER 2023-01-12 06:51 | Day surgery (SDC) | payer OTHER ==
[2023-01-12 07:30] VITALS: RESP 16; TEMP 97.1
[2023-01-12] MEDS ORDERED: LACTATED RINGERS 1,000 ML IV SCH (07:44)
[2023-01-12 07:53] LABS: Glucose,Whole Blood 104 mg/dL (70-110)
[2023-01-12] MEDS ORDERED: ROPIVACAINE 5 MG/ML 20 ML AMPULE ONE (07:56)
[2023-01-12] MEDS ORDERED: methylPREDNISolone ACETATE 40 MG/ML 1 ML VIAL ONE (07:56)
--- NOTE | 2023-01-12 08:04 | P.PCN ---
Date of Procedure: 01/12/23 Procedure(s) Performed: Preoperative Diagnosis: Right ilioinguinal and genitofemoral neuralgia Postoperative Diagnosis: Same as above Procedure(s) Performed: Right ilioinguinal nerve ,and right genitofemoral nerve block under ultrasound guidance Anesthesia: Local anesthesia with ropivacaine 0.5% 2 mL for skin and subcu infiltration Pathology: none sent Condition: stable Disposition: PACU Description of Procedure: The patient was seen in the preop holding area consent was obtained then he was brought into the procedure room and placed in supine position. The skin was prepped with ChloraPrep and draped in a sterile manner. Lidocaine 1% was used to numb the skin up at the entry points which were chosen as follows: For the right ilioinguinal nerve block the anterior superior iliac spine was identified and the ultrasound probe was placed obliquely between the umbilicus and the anterior-superior neck spine. Then the internal oblique abdominal muscle and the fascia between the internal oblique abdominal muscle and the transverse abdominis muscle was identified and was targeted by a 21-gauge 50 mm in length needle then I injected 10 ml of Ropivacaine 0.5 % mixed with 20 mg Depo-injected in this fascial plain between these 2 muscles. Then after that the genitofemoral nerve block done using 21-gauge needle, flaco hogue at the location of the right genitofemoral nerve and total of 5 ML of ropivacaine 0.5% mixed with 20 mg of Depo-Medrol injected after negative aspiration, Patient tolerated the procedure well without any complications ,and he will follow up in the pain clinic in a few weeks
[2023-01-12 08:10] VITALS: BP 105/71; PULSE 60
== END 2023-01-12 08:22 | disposition home or self-care (01) ==
LOC: ORPAIN 06:51
PROVIDERS: ATTEND Specialist
DX: G57.81 Other specified mononeuropathies of right lower limb (principal); R10.31 Right lower quadrant pain
CPT/HCPCS: 64450; 64425; J1030; J2795

== ENCOUNTER → 2023-02-08 | Outpatient (CLI) | payer OTHER ==
[2023-02-08 13:27] VITALS: BP 122/74; PULSE 59; RESP 16; TEMP 98.1
--- NOTE | 2023-02-09 07:57 | P.PAINPG ---
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 Pt states he experienced 80 % pain relief x 3 wks s/p procedure. Pain level is currently at 8/10 in intensity, constant, localized in the R inner groin/ thigh, sharp, stabbing in character w shooting towards the R inner thigh. Pain is provoked by walking for periods of 5 min or more. Pain is alleviated with injections, meds, topicals, home stretching regimen, repositioning and rest. Oswestry axial pain score of 30. Interventional pain procedures completed include R ilioinguinal/genitofemoral x2 Patient is currently on Percocet, Zanaflex, Mobic, Lidoderm Patient denies any side effects of the medication(s), denies excessive drowsiness or sleepiness, denies suicidal ideation and reports that the current pain medication is helping to control the pain and improve activities of daily living. Patient denies any motor or sensory deficits. Patient denies any fever or night sweats, denies any change in the bowel movements or urination. Physical Examination: -Constitutional: Cooperative. Not in acute distress . - Neurologic: Cranial nerve II to XII intact. No focal neurological deficits. - Psychatric: Alert & oriented x 3. Matching mood & appropriate affect. Judgment and insight intact. - Musculoskeletal: Cervical spine: Muscle bulk/ tone/ strength in the bilateral upper extremities normal Vertebral body tenderness to palpation over Spurling test positive Distraction test positive Facet loading test positive Thoracic spine Muscle bulk / tone/ strength in the bilateral paraspinal muscles normal Vertebral body tender to palpation over Facet loading test positive Lumbar spine: R groin TTP Motor bulk/ tone/ strength lower extremities , thigh and legs : 5/5 Deep tendon reflexes : Normal Knee Jerk. Normal Ankle Jerk . 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 May need a series of injections for optimal pain relief. Risks, benefits of procedure discussed and pt verbalized understanding. Denies anticoagulant use or medical history of diabetes. All patient questions answered I have spent less than 30 minutes on patient care today. Dr Schaffer was available by phone for the evaluation of this patient. The time was used to review the medical records including relevant urine studies and Prescription history (MAPs), review of the available imaging, evaluation and examination of the patient, coordination of care with the medical staff and if applicable referring physicians, as well as creation of the medical record PQRS Narrative: Smoking Status Current every day smoker Hx Alcohol Use (MH) Yes: RARE. Home Medications: Ambulatory Orders Topiramate 50 mg PO BID 10/30/16 oxyCODONE HCL [oxyCODONE HCL (IR)] 10 mg PO BID 06/26/17 Atorvastatin [Lipitor] 40 mg PO HS 10/16/20 [place]/APAP/Caf/Cod [id number] [Fioricet w/Cod 04-850-84-30MG] 1 cap PO DAILY PRN 10/16/20 Cholecalciferol [Vitamin D3 (25 Mcg = 1000 Iu)] 50 mcg PO DAILY 10/16/20 FLUoxetine HCL [PROzac] 20 mg PO DAILY 10/16/20 Fluticasone Nasal [place] [Flonase Nasal [place]] 1 spray EA NOSTRIL DAILY PRN 10/16/20 Loratadine [Claritin] 10 mg PO DAILY 10/16/20 Meloxicam [Mobic] 15 mg PO DAILY 10/16/20 metFORMIN HCL [Glucophage] 500 mg PO BID 10/16/20 Galcanezumab-Gnlm [Emgality Pen] 120 mg SQ Q30D 12/10/20 Hydrocortisone Cream [Hydrocortisone 1% Cream] 1 applic TOPICAL DAILY 07/23/21 Pantoprazole Sodium [Protonix] 20 mg PO DAILY 07/26/21 Lidocaine 4% Cream [Lmx 4] 1 applic TOPICAL QAM PRN 30 Days #1 kit 04/04/22 tiZANidine HCL [Zanaflex] 4 mg PO TID PRN 10/12/22 Controlled Substance Measures - Controlled Substance Measures Is patient prescribed a controlled substance at discharge?: No
== END ==
LOC: PNWHC3 12:42
PROVIDERS: ATTEND Specialist
DX: R10.31 Right lower quadrant pain (principal); G57.22 Lesion of femoral nerve, left lower limb; F17.200 Nicotine dependence, unspecified, uncomplicated; Z88.6 Allergy status to analgesic agent; Z88.8 Allergy status to other drugs, medicaments and biological substances; Z91.013 Allergy to seafood; Z88.0 Allergy status to penicillin; Z91.011 Allergy to milk products; Z88.5 Allergy status to narcotic agent
CPT/HCPCS: 99211

== ENCOUNTER 2023-02-23 06:41 | Day surgery (SDC) | payer OTHER ==
[2023-02-22 11:15] VITALS: BMI 25.1
[~2023-02-23 06:41] MED LIST changes: -DEXAMETHASONE SOD PHOSPHATE 4 MG/ML 1 ML VIAL IV ONE; -HYDROmorphone 0.5 MG/0.5 ML SYRINGE IVP PRN; -LIDOCAINE 1% (10MG/ML) FOR IV START INTRADERMA PRN; -MIDAZOLAM 2 MG/2 ML VIAL IV PRN; -ONDANSETRON 4 MG/2 ML VIAL IVP ONE; -Pre Op ABX Message 1 EACH MISC MISCELLANE ONE
[2023-02-23 07:06] LABS: Glucose,Whole Blood 122 mg/dL (70-110)
[2023-02-23] MEDS ORDERED: ROPIVACAINE 5MG/ML 20ML VIAL ONE (07:31)
[2023-02-23] MEDS ORDERED: methylPREDNISolone ACETATE 40 MG/ML 1 ML VIAL ONE (07:31)
--- NOTE | 2023-02-23 07:41 | P.PCN ---
Date of Procedure: 02/23/23 Procedure(s) Performed: Preoperative Diagnosis: Right ilioinguinal and genitofemoral neuralgia Postoperative Diagnosis: Same as above Procedure(s) Performed: Right ilioinguinal nerve ,and right genitofemoral nerve block under ultrasound guidance Anesthesia: Local anesthesia with ropivacaine 0.5% 2 mL for skin and subcu infiltration Pathology: none sent Condition: stable Disposition: PACU Description of Procedure: The patient was seen in the preop holding area consent was obtained then he was brought into the procedure room and placed in supine position. The skin was prepped with ChloraPrep and draped in a sterile manner. Lidocaine 1% was used to numb the skin up at the entry points which were chosen as follows: For the right ilioinguinal nerve block the anterior superior iliac spine was identified and the ultrasound probe was placed obliquely between the umbilicus and the anterior-superior neck spine. Then the internal oblique abdominal muscle and the fascia between the internal oblique abdominal muscle and the transverse abdominis muscle was identified and was targeted by a 21-gauge 50 mm in length needle then I injected 10 ml of Ropivacaine 0.5 % mixed with 20 mg Depo-injected in this fascial plain between these 2 muscles. Then after that the genitofemoral nerve block done using 21-gauge needleduke at the location of the right genitofemoral nerve and total of 5 ML of ropivacaine 0.5% mixed with 20 mg of Depo-Medrol injected after negative aspiration, Patient tolerated the procedure well without any complications ,and he will follow up in the pain clinic in a few weeks
[2023-02-23 15:56] VITALS: BP 119/81; PULSE 66; RESP 16; TEMP 97
== END 2023-02-23 08:04 | disposition home or self-care (01) ==
LOC: ORPAIN 06:41
PROVIDERS: ATTEND Specialist
DX: G57.81 Other specified mononeuropathies of right lower limb (principal); G57.21 Lesion of femoral nerve, right lower limb; E11.9 Type 2 diabetes mellitus without complications; Z79.1 Long term (current) use of non-steroidal anti-inflammatories (NSAID); Z88.0 Allergy status to penicillin; Z88.1 Allergy status to other antibiotic agents; Z88.5 Allergy status to narcotic agent; Z88.6 Allergy status to analgesic agent; Z88.9 Allergy status to unspecified drugs, medicaments and biological substances; Z88.8 Allergy status to other drugs, medicaments and biological substances; Z91.048 Other nonmedicinal substance allergy status; Z91.011 Allergy to milk products; Z91.013 Allergy to seafood
CPT/HCPCS: 64450; 64425; J1030; J2795

== ENCOUNTER → 2023-04-03 | Outpatient (CLI) | payer OTHER ==
[2023-04-03 08:28] VITALS: BP 123/82; PULSE 77; RESP 16; TEMP 97.9
--- NOTE | 2023-04-03 14:21 | P.PAINPG ---
PQRS Measure Charge Sheet Comment: A 52 yr old male with a history of severe and chronic inguinal pain secondary to ilioinguinal and genitofemoral neuralgia presents today for evaluation s/p R ilioinguinal/genitofemoral injection #3. Pt states he experienced 100% pain relief x 2-3 wks s/p procedure. Pain level is currently at 6/10 in intensity, constant, localized in the R inner groin/ thigh, sharp, stabbing in character w shooting towards the R inner thigh. Pain is provoked by walking for periods of 5 min or more. Pain is alleviated with injections, meds, topicals, home stretching regimen, repositioning and rest. Interventional pain procedures completed include R ilioinguinal/genitofemoral x3 (since Apr 2022) Patient is currently on Percocet, Zanaflex, Mobic, Lidoderm Patient denies any side effects of the medication(s), denies excessive drowsiness or sleepiness, denies suicidal ideation and reports that the current pain medication is helping to control the pain and improve activities of daily living. Patient denies any motor or sensory deficits. Patient denies any fever or night sweats, denies any change in the bowel movements or urination. Physical Examination: -Constitutional: Cooperative. Not in acute distress . - Neurologic: Cranial nerve II to XII intact. No focal neurological deficits. - Psychatric: Alert & oriented x 3. Matching mood & appropriate affect. Judgment and insight intact. - Musculoskeletal: Cervical spine: Muscle bulk/ tone/ strength in the bilateral upper extremities normal Vertebral body tenderness to palpation over Spurling test positive Distraction test positive Facet loading test positive Thoracic spine Muscle bulk / tone/ strength in the bilateral paraspinal muscles normal Vertebral body tender to palpation over Facet loading test positive Lumbar spine: R groin TTP Motor bulk/ tone/ strength lower extremities , thigh and legs : 5/5 Deep tendon reflexes : Normal Knee Jerk. Normal Ankle Jerk . 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 May need a series of injections for optimal pain relief. Risks, benefits of procedure discussed and pt verbalized understanding. Denies anticoagulant use or medical history of diabetes. All patient questions answered I have spent less than 30 minutes on patient care today. Dr Schaffer was available by phone for the evaluation of this patient. The time was used to review the medical records including relevant urine studies and Prescription history (MAPs), review of the available imaging, evaluation and examination of the patient, coordination of care with the medical staff and if applicable referring physicians, as well as creation of the medical record PQRS Narrative: Smoking Status Current every day smoker Hx Alcohol Use (MH) Yes: RARE. Home Medications: Ambulatory Orders Topiramate 50 mg PO BID 10/30/16 oxyCODONE HCL [oxyCODONE HCL (IR)] 10 mg PO BID 06/26/17 Atorvastatin [Lipitor] 40 mg PO HS 10/16/20 [place]/APAP/Caf/Cod [id number] [Fioricet w/Cod [id number]] 1 cap PO DAILY PRN 10/16/20 Cholecalciferol [Vitamin D3 (25 Mcg = 1000 Iu)] 50 mcg PO DAILY 10/16/20 FLUoxetine HCL [PROzac] 20 mg PO DAILY 10/16/20 Fluticasone Nasal [place] [Flonase Nasal [place]] 1 spray EA NOSTRIL DAILY PRN 10/16/20 Loratadine [Claritin] 10 mg PO DAILY 10/16/20 Meloxicam [Mobic] 15 mg PO DAILY 10/16/20 metFORMIN HCL [Glucophage] 500 mg PO BID 10/16/20 Galcanezumab-Gnlm [Emgality Pen] 120 mg SQ Q30D 12/10/20 Hydrocortisone Cream [Hydrocortisone 1% Cream] 1 applic TOPICAL DAILY 07/23/21 Pantoprazole Sodium [Protonix] 20 mg PO DAILY 07/26/21 Lidocaine 4% Cream [Lmx 4] 1 applic TOPICAL QAM PRN 30 Days #1 kit 04/04/22 tiZANidine HCL [Zanaflex] 4 mg PO TID PRN 10/12/22 Controlled Substance Measures - Controlled Substance Measures Is patient prescribed a controlled substance at discharge?: No
== END ==
LOC: PNWHC3 07:33
PROVIDERS: ATTEND Specialist
DX: R10.31 Right lower quadrant pain (principal); G89.29 Other chronic pain; M79.2 Neuralgia and neuritis, unspecified; F17.200 Nicotine dependence, unspecified, uncomplicated; Z88.6 Allergy status to analgesic agent; Z88.1 Allergy status to other antibiotic agents; Z88.8 Allergy status to other drugs, medicaments and biological substances; Z91.013 Allergy to seafood; Z88.0 Allergy status to penicillin; Z88.5 Allergy status to narcotic agent; Z91.011 Allergy to milk products
CPT/HCPCS: 99211

== ENCOUNTER 2023-04-25 06:27 | Day surgery (SDC) | payer OTHER ==
[2023-04-25 07:01] LABS: Glucose,Whole Blood 119 mg/dL (70-110)
[2023-04-25 07:09] VITALS: RESP 18; TEMP 97
[2023-04-25] MEDS ORDERED: ROPIVACAINE 5MG/ML 20ML VIAL ONE (07:50)
[2023-04-25] MEDS ORDERED: methylPREDNISolone ACETATE 40 MG/ML 1 ML VIAL ONE (07:50)
[2023-04-25 08:28] VITALS: BP 121/85; PULSE 72
--- NOTE | 2023-04-25 08:33 | P.PCN ---
Date of Procedure: 04/25/23 Description of Procedure: Preoperative diagnoses= 1-ilioinguinal iliohypogastric neuralgia. Postoperative diagnoses= same as preoperative diagnosis. Procedure=Right Ilioinguinal iliohypogastric nerve block with ultrasound guidance. (Ultrasound images available in the medical record ) Anesthesia= local woundLocal Estimated blood loss=minimal. Procedure indication= the patient had a history of severe chronic Groin pain, diagnosed with ilioinguinal neuralgia , unresponsive to conservative treatment. and patient here to have ilioinguinal nerve block Procedure description= the patient was seen and identified in the preoperative holding area, risks and benefits and alternative of the procedure and possible complications discussed with the patient, and he agreed with the preceding, patient signed the consent, and vital signs were monitored and were stable throughout the procedure, patient was placed in the supine position on the stretcher and the groin and lower abdomen area was prepped, and draped with a sterile fashion, vital signs were closely monitored during the procedure, the linear ultrasound probe was placed in the medial and superior aspect of the on the iliac Crest, ,the Transvurs abdominus muscle,and the internal obique muscules identified, and the locations of the ilioinguinal nerve identified , local infiltration of the skin and subcutaneous tissue with lidocaine 1%10ml then a 21-gauge 2 inches ultrasound needle advanced slowly with continous visualizations of the needle tip , and needle was in close proxemity of the ilioinguinal nerve , and after appropriate needle placement confirmed withe ultrasound ,the negative aspiration for heme , and there was no paresthesia during the injection, 9 ml of ropivacaine 0.5% and 40 mdg of Depo-Medrol , injected after negative aspiration, the needle removed, Then the skin was cleaned and a Band-Aid applied, the patient transported to recovery room in stable condition and he was monitored for 30 minutes before he was discharged home and then patient was reexamined before going home and patient was discharged in stable condition and patient will follow up with the pain clinic in a few weeks
== END 2023-04-25 08:20 | disposition home or self-care (01) ==
LOC: ORPAIN 06:27
PROVIDERS: ATTEND Pain Medicine Interventional Pain Medicine
DX: G58.8 Other specified mononeuropathies (principal); E11.9 Type 2 diabetes mellitus without complications; M79.7 Fibromyalgia; K21.9 Gastro-esophageal reflux disease without esophagitis; Z79.84 Long term (current) use of oral hypoglycemic drugs; Z79.899 Other long term (current) drug therapy; Z88.6 Allergy status to analgesic agent; Z88.1 Allergy status to other antibiotic agents; Z88.8 Allergy status to other drugs, medicaments and biological substances
CPT/HCPCS: 64447; J1030; J2795

== ENCOUNTER → 2023-05-25 | Outpatient (CLI) | payer OTHER ==
[2023-05-25 13:01] VITALS: BP 138/72; PULSE 75; RESP 15; TEMP 98.5
--- NOTE | 2023-05-25 15:09 | P.PAINPG ---
Objective - Vital Signs Vital signs: Intake & Output 05/24/23 05/25/23 05/25/23 18:59 06:59 18:59 Weight 89.811 kg PQRS Measure Charge Sheet Measure #130: Documentation of Current Meds in Medical Chart: Patient's medications documented in chart Measure #47: Advance Care Plan: Advance care planning discussed & documented, pt chose/unable to give Measure #408: Opioid Therapy Follow-up Evaluation: Patient had f/u eval minimum every 3 months during opioid therapy Measure #131: Pain Assessment & Follow-up: Pain positive & plan documented, Follow-up scheduled Comment: A 52 yr old male with a history of severe and chronic 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 Pt states he experienced 60% pain relief x 4 wks s/p procedure. Pain level is currently at 4/10 in intensity, constant, localized in the R inner groin/ thigh, sharp, stabbing in character w shooting towards the R inner thigh. Pain is provoked by walking for periods of 5 min or more. Pain is alleviated with injections, meds, topicals, home stretching regimen, repositioning and rest. Interventional pain procedures completed include R ilioinguinal/genitofemoral x4 (since Apr 2022) Patient is currently on Percocet, Zanaflex, Mobic, Lidoderm Patient denies any side effects of the medication(s), denies excessive drowsiness or sleepiness, denies suicidal ideation and reports that the current pain medication is helping to control the pain and improve activities of daily living. Patient denies any motor or sensory deficits. Patient denies any fever or night sweats, denies any change in the bowel movements or urination. Physical Examination: -Constitutional: Cooperative. Not in acute distress . - Neurologic: Cranial nerve II to XII intact. No focal neurological deficits. - Psychatric: Alert & oriented x 3. Matching mood & appropriate affect. Judgment and insight intact. - Musculoskeletal: Cervical spine: Muscle bulk/ tone/ strength in the bilateral upper extremities normal Vertebral body tenderness to palpation over Spurling test positive Distraction test positive Facet loading test positive Thoracic spine Muscle bulk / tone/ strength in the bilateral paraspinal muscles normal Vertebral body tender to palpation over Facet loading test positive Lumbar spine: R groin TTP Motor bulk/ tone/ strength lower extremities , thigh and legs : 5/5 Deep tendon reflexes : Normal Knee Jerk. Normal Ankle Jerk . Vertebral body tenderness to palpation over Lumbar Facet Loading Test positive Straight Leg Raise: positive at 30 degrees right side/ left side Gaenslen's Test positive Sacral spine : Severe tenderness over the Sacroiliac joint: right side / left side Range of motion: Flexion of the lumbar spine <60 degrees Range of motion: Extension of the lumbar spine <20 degrees Gaenslen's Test positive Ana test: positive right side / left side Thigh Thrust Test Sacral Thrust Test Assessment and plan: Chronic R inguinal pain secondary to ilioinguinal/ genitofemoral/ iliohypogastric neuralgia May manage residual pain and RTC on an as needed basis. All patient questions answered I have spent less than 30 minutes on patient care today. Dr Schaffer was available by phone for the evaluation of this patient. The time was used to review the medical records including relevant urine studies and Prescription history (MAPs), review of the available imaging, evaluation and examination of the patient, coordination of care with the medical staff and if applicable referring physicians, as well as creation of the medical record - Pain Location Right Groin Non-Pharmacological Interventions: Heat, Position/Reposition, Sitting, Standing Pharmacological Interventions: Epidural, Scheduled Medication PQRS Narrative: Smoking Status Current every day smoker Hx Alcohol Use (MH) Yes: RARE. Home Medications: Ambulatory Orders Topiramate 50 mg PO BID 10/30/16 oxyCODONE HCL [oxyCODONE HCL (IR)] 10 mg PO BID 06/26/17 Atorvastatin [Lipitor] 40 mg PO HS 10/16/20 [place]/APAP/Caf/Cod [id number] [Fioricet w/Cod [id number]] 1 cap PO DAILY PRN 10/16/20 Cholecalciferol [Vitamin D3 (25 Mcg = 1000 Iu)] 50 mcg PO DAILY 10/16/20 FLUoxetine HCL [PROzac] 20 mg PO DAILY 10/16/20 Fluticasone Nasal [place] [Flonase Nasal [place]] 1 spray EA NOSTRIL DAILY PRN 0 10/16/20 Loratadine [Claritin] 10 mg PO DAILY 10/16/20 Meloxicam [Mobic] 15 mg PO DAILY 10/16/20 metFORMIN HCL [Glucophage] 500 mg PO BID 10/16/20 Galcanezumab-Gnlm [Emgality Pen] 120 mg SQ Q30D 12/10/20 Hydrocortisone Cream [Hydrocortisone 1% Cream] 1 applic TOPICAL DAILY 07/23/21 Pantoprazole Sodium [Protonix] 20 mg PO DAILY 07/26/21 Lidocaine 4% Cream [Lmx 4] 1 applic TOPICAL QAM PRN 30 Days #1 kit 04/04/22 tiZANidine HCL [Zanaflex] 4 mg PO TID PRN 10/12/22 Rimegepant Sulfate [Nurtec Odt] 75 mg PO Q48H PRN 04/20/23 Controlled Substance Measures - Controlled Substance Measures Is patient prescribed a controlled substance at discharge?: No
== END ==
LOC: PNWHC3 12:30
PROVIDERS: ATTEND Specialist
DX: G57.82 Other specified mononeuropathies of left lower limb (principal); R10.31 Right lower quadrant pain; G89.29 Other chronic pain; F17.200 Nicotine dependence, unspecified, uncomplicated; Z88.6 Allergy status to analgesic agent; Z88.8 Allergy status to other drugs, medicaments and biological substances; Z88.1 Allergy status to other antibiotic agents; Z91.011 Allergy to milk products; Z91.013 Allergy to seafood; Z91.018 Allergy to other foods; Z88.5 Allergy status to narcotic agent
CPT/HCPCS: 99211

== ENCOUNTER → 2023-09-22 | Outpatient (CLI) | payer OTHER ==
--- NOTE | 2023-09-26 10:16 | CTL ---
EXAMINATION TYPE: CT Low Dose Lung DATE OF EXAM ORDERED: 09/22/2023 HISTORY: Current smoker. Lung cancer screening CT DLP: [address] CTDI: 2.41 mGy Automated exposure control for dose reduction was used. SCREENING VISIT: Initial COMPARISON: None TECHNIQUE: Low dose computed tomography scan was performed through the chest at 1 mm thick sections a nd reconstructed images in the coronal plane at [address] DIAGNOSTIC QUALITY: Limited, but interpretable FINDINGS: LUNG NODULES: None. LUNGS: COPD: Severity: None Fibrosis: Severity: None Lymph nodes: No enlarged adenopathy Other findings: None RIGHT PLEURAL SPACE: Effusion: None Calcification: None Thickening: None Pneumothorax: None LEFT PLEURAL SPACE: Effusion: None Calcification: None Thickening: None Pneumothorax: None HEART: Heart Size: Normal Coronary calcification: None Pericardial effusion: None OTHER FINDINGS: Upper abdomen: Normal Bony thorax: Normal Supraclavicular region: Normal Other: Ascending thoracic aorta at the level the main pulmonary artery measures 3.0 cm. The main pul monary artery at the bifurcation measures 2.4 cm. IMPRESSION: No suspicious changes for primary or metastatic neoplasm FOLLOW UP CT CHEST RECOMMENDATION: Follow-up low-dose CT chest one year CT LUNG RAD: Lung-Rad 1 Negative
== END | disposition home or self-care (01) ==
LOC: RADCTMAIN 08:44
PROVIDERS: ATTEND Family Medicine
DX: Z12.2 Encounter for screening for malignant neoplasm of respiratory organs (principal); F17.210 Nicotine dependence, cigarettes, uncomplicated
CPT/HCPCS: 71271

== ENCOUNTER → 2023-10-02 | Outpatient (CLI) | payer OTHER ==
[2023-10-02 09:52] VITALS: BP 117/66; PULSE 89; RESP 15; TEMP 98.2
--- NOTE | 2023-10-02 09:53 | P.PAINPG ---
Objective - Vital Signs Vital signs: Intake & Output 10/01/23 10/02/23 10/02/23 18:59 06:59 18:59 Weight 89.811 kg PQRS Measure Charge Sheet Comment: A 52 yr old male with a history of severe and chronic 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 Pt states he experienced 60% pain relief x 4 wks s/p procedure. Pain level is currently at 4/10 in intensity, constant, localized in the R inner groin/ thigh, sharp, stabbing in character w shooting towards the R inner thigh. Pain is provoked by walking for periods of 5 min or more. Pain is alleviated with injections, meds, topicals, home stretching regimen every morning since Mar 2022, repositioning and rest. Interventional pain procedures completed include R ilioinguinal/genitofemoral x4 (since Apr 2022), R ilioinguinal/ Iliohypogastric x1 (Apr 2023) Patient is currently on Percocet, Zanaflex, Mobic, Lidoderm Patient denies any side effects of the medication(s), denies excessive drowsiness or sleepiness, denies suicidal ideation and reports that the current pain medication is helping to control the pain and improve activities of daily living. Patient denies any motor or sensory deficits. Patient denies any fever or night sweats, denies any change in the bowel movements or urination. Physical Examination: -Constitutional: Cooperative. Not in acute distress . - Neurologic: Cranial nerve II to XII intact. No focal neurological deficits. - Psychatric: Alert & oriented x 3. Matching mood & appropriate affect. Judgment and insight intact. - Musculoskeletal: Cervical spine: Muscle bulk/ tone/ strength in the bilateral upper extremities normal Vertebral body tenderness to palpation over Spurling test positive Distraction test positive Facet loading test positive Thoracic spine Muscle bulk / tone/ strength in the bilateral paraspinal muscles normal Vertebral body tender to palpation over Facet loading test positive Lumbar spine: R groin TTP Motor bulk/ tone/ strength lower extremities , thigh and legs : 5/5 Deep tendon reflexes : Normal Knee Jerk. Normal Ankle Jerk . Vertebral body tenderness to palpation over Lumbar Facet Loading Test positive Straight Leg Raise: positive at 30 degrees right side/ left side Gaenslen's Test positive Sacral spine : Severe tenderness over the Sacroiliac joint: right side / left side Range of motion: Flexion of the lumbar spine <60 degrees Range of motion: Extension of the lumbar spine <20 degrees Gaenslen's Test positive Ana test: positive right side / left side Thigh Thrust Test Sacral Thrust Test Assessment and plan: Chronic R inguinal pain secondary to ilioinguinal/ genitofemoral/ iliohypogastric neuralgia Recommendation of R ilioinguinal/genitofemoral #1. May need a series of injections for optimal pain relief. Risks, benefits of procedure discussed and pt verbalized understanding. Protocol for discontinuation/ continuation of medications per i procedure discussed. All patient questions answered I have spent less than 30 minutes on patient care today. Dr Schaffer was available by phone for the evaluation of this patient. The time was used to review the medical records including relevant urine studies and Prescription history (MAPs), review of the available imaging, evaluation and examination of the patient, coordination of care with the medical staff and if applicable referring physicians, as well as creation of the medical record PQRS Narrative: Smoking Status Current every day smoker Hx Alcohol Use (MH) Yes: RARE. Home Medications: Ambulatory Orders Topiramate 50 mg PO BID 10/30/16 oxyCODONE HCL [oxyCODONE HCL (IR)] 10 mg PO BID 06/26/17 Atorvastatin [Lipitor] 40 mg PO HS 10/16/20 [place]/APAP/Caf/Cod 16-859-61-30 [Fioricet w/Cod 45-189-06-30MG] 1 cap PO DAILY PRN 10/16/20 Cholecalciferol [Vitamin D3 (25 Mcg = 1000 Iu)] 50 mcg PO DAILY 10/16/20 FLUoxetine HCL [PROzac] 20 mg PO DAILY 10/16/20 Fluticasone Nasal [place] [Flonase Nasal [place]] 1 spray EA NOSTRIL DAILY PRN 10/16/20 Loratadine [Claritin] 10 mg PO DAILY 10/16/20 Meloxicam [Mobic] 15 mg PO DAILY 10/16/20 metFORMIN HCL [Glucophage] 500 mg PO BID 10/16/20 Galcanezumab-Gnlm [Emgality Pen] 120 mg SQ Q30D 12/10/20 Hydrocortisone Cream [Hydrocortisone 1% Cream] 1 applic TOPICAL DAILY 07/23/21 Pantoprazole Sodium [Protonix] 20 mg PO DAILY 07/26/21 Lidocaine 4% Cream [Lmx 4] 1 applic TOPICAL QAM PRN 30 Days #1 kit 04/04/22 tiZANidine HCL [Zanaflex] 4 mg PO TID PRN 10/12/22 Rimegepant Sulfate [Nurtec Odt] 75 mg PO Q48H PRN 04/20/23 Controlled Substance Measures - Controlled Substance Measures Is patient prescribed a controlled substance at discharge?: No
== END ==
LOC: PNWHC3 08:40
PROVIDERS: ATTEND Specialist
DX: R10.31 Right lower quadrant pain (principal); G89.29 Other chronic pain; G58.8 Other specified mononeuropathies; F17.200 Nicotine dependence, unspecified, uncomplicated; Z88.6 Allergy status to analgesic agent; Z88.1 Allergy status to other antibiotic agents; Z91.013 Allergy to seafood; Z91.011 Allergy to milk products; Z88.0 Allergy status to penicillin; Z88.8 Allergy status to other drugs, medicaments and biological substances; Z91.018 Allergy to other foods; Z88.5 Allergy status to narcotic agent
CPT/HCPCS: 99211

== ENCOUNTER 2023-10-10 07:09 | Day surgery (SDC) | payer OTHER ==
[2023-10-09 11:35] VITALS: BMI 27.6
[2023-10-10 07:43] LABS: Glucose,Whole Blood 105 mg/dL (70-110)
[2023-10-10 07:59] VITALS: RESP 16; TEMP 97.1
[2023-10-10] MEDS ORDERED: ROPIVACAINE 5MG/ML 20ML VIAL ONE (08:21)
[2023-10-10] MEDS ORDERED: methylPREDNISolone ACETATE 40 MG/ML 1 ML VIAL ONE (08:21)
--- NOTE | 2023-10-10 08:30 | P.PCN ---
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 The skin was prepped with ChloraPrep and draped in a sterile manner. Lidocaine 1% was used to numb the skin up at the entry points which were chosen as follows: For the right ilioinguinal nerve block the anterior superior iliac spine was identified and the ultrasound probe was placed obliquely between the umbilicus and the anterior-superior neck spine. Then the internal oblique abdominal muscle and the fascia between the internal oblique abdominal muscle and the transverse abdominis muscle was identified and was targeted by a 21-gauge 50 mm in length needle then I injected 10 ml of Ropivacaine 0.5 % mixed with 20 mg Depo-injected in this fascial plain between these 2 muscles. Then after that the genitofemoral nerve block done using 21-gauge need[place]uke at the location of the right genitofemoral nerve and total of 5 ML of ropivacaine 0.5% mixed with 20 mg of Depo-Medrol injected after negative aspiration, Patient tolerated the procedure well without any complications ,and he will follow up in the pain clinic in a few weeks
[2023-10-10 08:48] VITALS: BP 106/79; PULSE 78
== END 2023-10-10 08:55 | disposition home or self-care (01) ==
LOC: ORPAIN 07:09
PROVIDERS: ATTEND Specialist
DX: G58.8 Other specified mononeuropathies (principal); Z88.6 Allergy status to analgesic agent; Z91.011 Allergy to milk products; Z88.8 Allergy status to other drugs, medicaments and biological substances; Z88.0 Allergy status to penicillin; Z88.1 Allergy status to other antibiotic agents
CPT/HCPCS: 64425; J2795; J1010

== ENCOUNTER → 2023-10-25 | Outpatient (CLI) | payer OTHER ==
[2023-10-25 14:31] VITALS: BP 121/83; PULSE 78; RESP 16
--- NOTE | 2023-10-25 14:50 | P.PAINPG ---
PQRS Measure Charge Sheet Comment: A 53 yr old male with a history of severe and chronic inguinal pain secondary to ilioinguinal and genitofemoral neuralgia presents today for evaluation s/p R ilioinguinal /genitofemoral nerve block #1. Pt states he experienced 80 % pain relief x 2-3 wks s/p procedure. Pain level is currently at 6 /10 in intensity, constant, localized in the R inner groin, sharp/ stabbing in character w occasional shooting towards the R inner thigh. Pain is provoked by walking for periods of 5 min or more. Pain is alleviated with injections, meds, topicals, home stretching regimen every morning since Mar 2022, repositioning and rest. Interventional pain procedures completed include R ilioinguinal/genitofemoral x5 (since Apr 2022), R ilioinguinal/ Iliohypogastric x1 (Apr 2023) Patient is currently on Percocet, Zanaflex, Mobic, Lidoderm Patient denies any side effects of the medication(s), denies excessive drowsi ness or sleepiness, denies suicidal ideation and reports that the current pain medication is helping to control the pain and improve activities of daily living. Patient denies any motor or sensory deficits. Patient denies any fever or night sweats, denies any change in the bowel movements or urination. Physical Examination: -Constitutional: Cooperative. Not in acute distress . - Neurologic: Cranial nerve II to XII intact. No focal neurological deficits. - Psychatric: Alert & oriented x 3. Matching mood & appropriate affect. Judgment and insight intact. - Musculoskeletal: Cervical spine: Muscle bulk/ tone/ strength in the bilateral upper extremities normal Vertebral body tenderness to palpation over Spurling test positive Distraction test positive Facet loading test positive Thoracic spine Muscle bulk / tone/ strength in the bilateral paraspinal muscles normal Vertebral body tender to palpation over Facet loading test positive Lumbar spine: Abd RLQ/ R groin TTP Motor bulk/ tone/ strength lower extremities , thigh and legs : 5/5 Deep tendon reflexes : Normal Knee Jerk. Normal Ankle Jerk . Vertebral body tenderness to palpation over Lumbar Facet Loading Test positive Straight Leg Raise: positive at 30 degrees right side/ left side Gaenslen's Test positive Sacral spine : Severe tenderness over the Sacroiliac joint: right side / left side Range of motion: Flexion of the lumbar spine <60 degrees Range of motion: Extension of the lumbar spine <20 degrees Gaenslen's Test positive Ana test: positive right side / left side Thigh Thrust Test Sacral Thrust Test Assessment and plan: Chronic R inguinal pain secondary to ilioinguinal/ genitofemoral/ iliohypogastric neuralgia Recommendation of R ilioinguinal/ hypogastric nerve block #2. May need a series of injections for optimal pain relief. Risks, benefits of procedure discussed and pt verbalized understanding. Protocol for discontinuation/ continuation of medications per i procedure discussed. All patient questions answered I have spent less than 30 minutes on patient care today. Dr Schaffer was available by phone for the evaluation of this patient. The time was used to review the medical records including relevant urine studies and Prescription history (MAPs), review of the available imaging, evaluation and examination of the patient, coordination of care with the medical staff and if applicable re [facility] physicians, as well as creation of the medical record PQRS Narrative: Smoking Status Current every day smoker Hx Alcohol Use (MH) Yes: RARE. Home Medications: Ambulatory Orders Topiramate 50 mg PO BID 10/30/16 oxyCODONE HCL [oxyCODONE HCL (IR)] 10 mg PO BID 06/26/17 Atorvastatin [Lipitor] 40 mg PO HS 10/16/20 [place]/APAP/Caf/Cod [id number] [Fioricet w/Cod [id number]] 1 cap PO DAILY PRN 10/16/20 Cholecalciferol [Vitamin D3 (25 Mcg = 1000 Iu)] 50 mcg PO DAILY 10/16/20 FLUoxetine HCL [PROzac] 20 mg PO DAILY 10/16/20 Fluticasone Nasal [place] [Flonase Nasal [place]] 1 spray EA NOSTRIL DAILY PRN 10/16/20 Loratadine [Claritin] 10 mg PO DAILY 10/16/20 Meloxicam [Mobic] 15 mg PO DAILY 10/16/20 metFORMIN HCL [Glucophage] 500 mg PO BID 10/16/20 Galcanezumab-Gnlm [Emgality Pen] 120 mg SQ Q30D 12/10/20 Hydrocortisone Cream [Hydrocortisone 1% Cream] 1 applic TOPICAL DAILY 07/23/21 Pantoprazole Sodium [Protonix] 20 mg PO DAILY 07/26/21 Lidocaine 4% Cream [Lmx 4] 1 applic TOPICAL QAM PRN 30 Days #1 kit 04/04/22 tiZANidine HCL [Zanaflex] 4 mg PO TID PRN 10/12/22 Rimegepant Sulfate [Nurtec Odt] 75 mg PO Q48H PRN 04/20/23 Controlled Substance Measures - Controlled Substance Measures Is patient prescribed a controlled substance at discharge?: No
== END ==
LOC: PNWHC3 12:58
PROVIDERS: ATTEND Specialist
DX: R10.31 Right lower quadrant pain (principal); G57.82 Other specified mononeuropathies of left lower limb; G57.90 Unspecified mononeuropathy of unspecified lower limb; F17.200 Nicotine dependence, unspecified, uncomplicated; F12.90 Cannabis use, unspecified, uncomplicated; Z88.1 Allergy status to other antibiotic agents; Z91.013 Allergy to seafood; Z88.5 Allergy status to narcotic agent; Z91.011 Allergy to milk products; Z88.0 Allergy status to penicillin; Z91.09 Other allergy status, other than to drugs and biological substances
CPT/HCPCS: 99211

== ENCOUNTER 2024-02-13 06:19 | Day surgery (SDC) | payer OTHER ==
[2024-02-13 06:53] VITALS: RESP 16; TEMP 98
[2024-02-13 07:03] LABS: Glucose,Whole Blood 103 mg/dL (70-110)
[2024-02-13] MEDS ORDERED: ROPIVACAINE 5MG/ML 20ML VIAL ONE (07:05)
[2024-02-13] MEDS ORDERED: methylPREDNISolone ACETATE 40 MG/ML 1 ML VIAL ONE (07:05)
--- NOTE | 2024-02-13 07:28 | P.PCN ---
Description of Procedure: Preoperative diagnoses= 1-ilioinguinal iliohypogastric neuralgia. Postoperative diagnoses= same as preoperative diagnosis. Procedure=Right Ilioinguinal,Iliohypogastric nerve block with ultrasound guidance. (Ultrasound images available in the medical record ) Anesthesia= local woundLocal Estimated blood loss=minimal. Procedure indication= the patient had a history of severe chronic Groin pain, diagnosed with ilioinguinal neuralgia , unresponsive to conservative treatment. and patient here to have ilioinguinal nerve block Procedure description= the patient was seen and identified in the preoperative holding area, risks and benefits and alternative of the procedure and possible complications discussed with the patient, and he agreed with the preceding, patient signed the consent, and vital signs were monitored and were stable throughout the procedure, patient was placed in the supine position on the stretcher and the groin and lower abdomen area was prepped, and draped with a sterile fashion, vital signs were closely monitored during the procedure, the linear ultrasound probe was placed in the medial and superior aspect of the the iliac Crest, ,the Transvurs abdominus muscle,and the internal obique muscules identified, and the locations of the ilioinguinal nerve identified , local infiltration of the skin and subcutaneous tissue with lidocaine 1%10ml then a 21-gauge 2 inches ultrasound needle advanced slowly with continous visualizations of the needle tip , and needle was in close proxemity of the ilioinguinal nerve , and after appropriate needle placement confirmed withe ultrasound ,the negative aspiration for heme , and there was no paresthesia during the injection, 9 ml of ropivacaine 0.5% and 40 mdg of Depo-Medrol , injected after negative aspiration, the needle removed, Then the skin was cleaned and a Band-Aid applied, the patient transported to recovery room in stable condition and he was monitored for 30 minutes before he was discharged home and then patient was reexamined before going home and patient was discharged in stable condition and patient will follow up with the pain clinic in a few weeks
[2024-02-13 07:45] VITALS: BP 116/72; PULSE 65
== END 2024-02-13 07:48 | disposition home or self-care (01) ==
LOC: ORPAIN 06:19
PROVIDERS: ATTEND Pain Medicine Interventional Pain Medicine
DX: R10.31 Right lower quadrant pain (principal)
CPT/HCPCS: 64517

== ENCOUNTER → 2024-02-29 | Outpatient (CLI) | payer OTHER ==
[2024-02-29 13:26] VITALS: BP 120/84; PULSE 83; RESP 16; TEMP 97.1
--- NOTE | 2024-02-29 13:27 | P.PAINPG ---
PQRS Measure Charge Sheet Comment: A 53 yr old male with a history of severe and chronic inguinal pain secondary to ilioinguinal and genitofemoral neuralgia presents today for evaluation s/p R ilioinguinal/ hypogastric nerve block #2. Pt states he experienced 80 % pain relief x 3 wks s/p procedure. Pain level is currently at 3 /10 in intensity, constant, localized in the R inner groin, sharp/ stabbing in character w occasional shooting towards the R inner thigh. Pain is provoked by walking for periods of 5 min or more. Pain is alleviated with injections, meds, topicals, home stretching regimen every morning since Mar 2022, repositioning and rest. Interventional pain procedures completed include R ilioinguinal/genitofemoral x5 (since Apr 2022), R ilioinguinal/ Iliohypogastric x1 (Apr 2023, Jan 2024) Patient is currently on Percocet, Zanaflex, Mobic, Lidoderm Patient denies any side effects of the medication(s), denies excessive drowsiness or sleepiness, denies suicidal ideation and reports that the current pain medication is helping to control the pain and improve activities of daily living. Patient denies any motor or sensory deficits. Patient denies any fever or night sweats, denies any change in the bowel movements or urination. Physical Examination: -Constitutional: Cooperative. Not in acute distress . - Neurologic: Cranial nerve II to XII intact. No focal neurological deficits. - Psychatric: Alert & oriented x 3. Matching mood & appropriate affect. Judgment and insight intact. - Musculoskeletal: Cervical spine: Muscle bulk/ tone/ strength in the bilateral upper extremities normal Vertebral body tenderness to palpation over Spurling test positive Distraction test positive Facet loading test positive Thoracic spine Muscle bulk / tone/ strength in the bilateral paraspinal muscles normal Vertebral body tender to palpation over Facet loading test positive Lumbar spine: Abd RLQ/ R groin TTP Motor bulk/ tone/ strength lower extremities , thigh and legs : 5/5 Deep tendon reflexes : Normal Knee Jerk. Normal Ankle Jerk . Vertebral body tenderness to palpation over Lumbar Facet Loading Test positive Straight Leg Raise: positive at 30 degrees right side/ left side Gaenslen's Test positive Sacral spine : Severe tenderness over the Sacroiliac joint: right side / left side Range of motion: Flexion of the lumbar spine <60 degrees Range of motion: Extension of the lumbar spine <20 degrees Gaenslen's Test positive Ana test: positive right side / left side Thigh Thrust Test Sacral Thrust Test Assessment and plan: Chronic R inguinal pain secondary to ilioinguinal/ genitofemoral/ iliohypogastric neuralgia Will manage residual pain and may RTC on an as needed basis. All patient questions answered I have spent less than 30 minutes on patient care today. Dr Schaffer was available by phone for the evaluation of this patient. The time was used to review the medical records including relevant urine studies and Prescription history (MAPs), review of the available imaging, evaluation and examination of the patient, coordination of care with the medical staff and if applicable referring physicians, as well as creation of the medical record PQRS Narrative: Smoking Status Current every day smoker Hx Alcohol Use (MH) Yes: RARE. Home Medications: Ambulatory Orders Topiramate 50 mg PO BID 10/30/16 oxyCODONE HCL [oxyCODONE HCL (IR)] 10 mg PO BID 06/26/17 Atorvastatin [Lipitor] 40 mg PO HS 10/16/20 [place]/APAP/Caf/Cod [id number] [Fioricet w/Cod [id number]] 1 cap PO DAILY PRN 10/16/20 Cholecalciferol [Vitamin D3 (25 Mcg = 1000 Iu)] 50 mcg PO DAILY 10/16/20 FLUoxetine HCL [PROzac] 20 mg PO DAILY 10/16/20 Fluticasone Nasal [place] [Flonase Nasal [place]] 1 spray EA NOSTRIL DAILY PRN 10/16/20 Loratadine [Claritin] 10 mg PO DAILY 10/16/20 Meloxicam [Mobic] 15 mg PO DAILY 10/16/20 metFORMIN HCL [Glucophage] 500 mg PO BID 10/16/20 Galcanezumab-Gnlm [Emgality Pen] 120 mg SQ Q30D 12/10/20 Hydrocortisone Cream [Hydrocortisone 1% Cream] 1 applic TOPICAL DAILY PRN 07/23/21 Pantoprazole Sodium [Protonix] 20 mg PO DAILY 07/26/21 Lidocaine 4% Cream [Lmx 4] 1 applic TOPICAL QAM PRN 30 Days #1 kit 04/04/22 tiZANidine HCL [Zanaflex] 4 mg PO TID PRN 10/12/22 Rimegepant Sulfate [Nurtec Odt] 75 mg PO Q48H PRN 04/20/23 Controlled Substance Measures - Controlled Substance Measures Is patient prescribed a controlled substance at discharge?: No
== END ==
LOC: PNWHC3 12:52
PROVIDERS: ATTEND Specialist
DX: R10.31 Right lower quadrant pain
CPT/HCPCS: 99211

== ENCOUNTER → 2024-08-14 | Outpatient (CLI) | payer OTHER ==
[2024-08-14 11:34] VITALS: BP 110/68; PULSE 78; RESP 19; TEMP 98.2
--- NOTE | 2024-08-14 15:42 | P.PAINPG ---
PQRS Measure Charge Sheet Comment: A 53 yr old male with a history of severe and chronic inguinal pain secondary to ilioinguinal and genitofemoral neuralgia presents today for evaluation. Pain level is currently at 6 /10 in intensity, constant, localized in the R inner groin, sharp/ stabbing in character w occasional shooting towards the R groin, hip and inner thigh. Pain is provoked by walking for periods of 5 min or more. Pain is alleviated with injections, meds, topicals, home stretching regimen every morning since Mar 2022, repositioning and rest. Interventional pain procedures completed include R ilioinguinal/genitofemoral x5 (since Apr 2022), R ilioinguinal/ Iliohypogastric x1 (Apr 2023, Jan 2024) Patient is currently on Percocet, Zanaflex, Mobic, Lidoderm Patient denies any side effects of the medication(s), denies excessive drowsiness or sleepiness, denies suicidal ideation and reports that the current pain medication is helping to control the pain and improve activities of daily living. Patient denies any motor or sensory deficits. Patient denies any fever or night sweats, denies any change in the bowel movements or urination. Physical Examination: -Constitutional: Cooperative. Not in acute distress . - Neurologic: Cranial nerve II to XII intact. No focal neurological deficits. - Psychatric: Alert & oriented x 3. Matching mood & appropriate affect. Judgment and insight intact. - Musculoskeletal: Cervical spine: Muscle bulk/ tone/ strength in the bilateral upper extremities normal Vertebral body tenderness to palpation over Spurling test positive Distraction test positive Facet loading test positive Thoracic spine Muscle bulk / tone/ strength in the bilateral paraspinal muscles normal Vertebral body tender to palpation over Facet loading test positive Lumbar spine: Abd RLQ/ R groin TTP Motor bulk/ tone/ strength lower extremities , thigh and legs : 5/5 Deep tendon reflexes : Normal Knee Jerk. Normal Ankle Jerk . Vertebral body tenderness to palpation over Lumbar Facet Loading Test positive Straight Leg Raise: positive at 30 degrees right side/ left side Gaenslen's Test positive Sacral spine : Severe tenderness over the Sacroiliac joint: right side / left side Range of motion: Flexion of the lumbar spine <60 degrees Range of motion: Extension of the lumbar spine <20 degrees Gaenslen's Test positive Ana test: positive right side / left side Thigh Thrust Test Sacral Thrust Test Assessment and plan: Chronic R inguinal pain secondary to ilioinguinal/ genitofemoral/ iliohypogastric neuralgia Recommendation of R ilioinguinal/genitofemoral #3. Risks, benefits of procedure discussed and patient verbalized understanding. Protocol for discontinuation/continuation of medication surrounding procedure discussed. All patient questions answered I have spent less than 30 minutes on patient care today. Dr Schaffer was available by phone for the evaluation of this patient. The time was used to review the medical records including relevant urine studies and Prescription history (MAPs), review of the available imaging, evaluation and examination of the patient, coordination of care with the medical staff and if applicable referring physicians, as well as creation of the medical record - Pain Location Groin Non-Pharmacological Interventions: Heat, Inactivity, Relaxation Technique PQRS Narrative: Smoking Status Current every day smoker Hx Alcohol Use (MH) Yes: RARE. Home Medications: Ambulatory Orders Topiramate 50 mg PO BID 10/30/16 oxyCODONE HCL [oxyCODONE HCL (IR)] 10 mg PO BID 06/26/17 Atorvastatin [Lipitor] 40 mg PO HS 10/16/20 [place]/APAP/Caf/Cod [id number] [Fioricet w/Cod [id number]] 1 cap PO DAILY PRN 10/16/20 Cholecalciferol [Vitamin D3 (25 Mcg = 1000 Iu)] 50 mcg PO DAILY 10/16/20 FLUoxetine HCL [PROzac] 20 mg PO DAILY 10/16/20 Fluticasone Nasal [place] [Flonase Nasal [place]] 1 spray EA NOSTRIL DAILY PRN 10/16/20 Loratadine [Claritin] 10 mg PO DAILY 10/16/20 Meloxicam [Mobic] 15 mg PO DAILY 10/16/20 metFORMIN HCL [Glucophage] 500 mg PO BID 10/16/20 Galcanezumab-Gnlm [Emgality Pen] 120 mg SQ Q30D 12/10/20 Hydrocortisone Cream [Hydrocortisone 1% Cream] 1 applic TOPICAL DAILY PRN 07/23/21 Pantoprazole Sodium [Protonix] 20 mg PO DAILY 07/26/21 Lidocaine 4% Cream [Lmx 4] 1 applic TOPICAL QAM PRN 30 Days #1 kit 04/04/22 tiZANidine HCL [Zanaflex] 4 mg PO TID PRN 10/12/22 Rimegepant Sulfate [Nurtec Odt] 75 mg PO Q48H PRN 04/20/23 diazePAM [Valium] 5 mg PO DAILY 1 Days #2 tab 08/14/24 Controlled Substance Measures - Controlled Substance Measures Is patient prescribed a controlled substance at discharge?: Yes When asked, does pt state using other controlled substances?: Yes If prescribed controlled substance>3 days was MAPS reviewed?: Prescribed <3 Days
== END ==
LOC: PNWHC3 11:00
PROVIDERS: ATTEND Specialist
DX: R10.31 Right lower quadrant pain (principal); F17.210 Nicotine dependence, cigarettes, uncomplicated; F12.90 Cannabis use, unspecified, uncomplicated; Z88.6 Allergy status to analgesic agent; Z88.1 Allergy status to other antibiotic agents; Z88.8 Allergy status to other drugs, medicaments and biological substances; Z88.5 Allergy status to narcotic agent; Z91.013 Allergy to seafood; Z91.018 Allergy to other foods; Z91.011 Allergy to milk products; Z88.0 Allergy status to penicillin
CPT/HCPCS: 99212

== ENCOUNTER 2024-08-16 06:28 | Day surgery (SDC) | payer OTHER ==
[2024-08-16] MEDS ORDERED: LACTATED RINGERS 1,000 ML IV SCH (06:52)
[2024-08-16 07:07] VITALS: TEMP 97.4
[2024-08-16 07:08] LABS: Glucose,Whole Blood 138 mg/dL (70-110)
[2024-08-16] MEDS ORDERED: ROPIVACAINE 5MG/ML 20ML VIAL ONE (07:48)
[2024-08-16] MEDS ORDERED: methylPREDNISolone ACETATE 80 MG/ML 1 ML VIAL ONE (07:48)
--- NOTE | 2024-08-16 07:56 | P.PCN ---
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 The skin was prepped with ChloraPrep and draped in a sterile manner. Lidocaine 1% was used to numb the skin up at the entry points which were chosen as follows: For the right ilioinguinal nerve block the anterior superior iliac spine was identified and the ultrasound probe was placed obliquely between the umbilicus and the anterior-superior neck spine. Then the internal oblique abdominal muscle and the fascia between the internal oblique abdominal muscle and the transverse abdominis muscle was identified and was targeted by a 21-gauge 50 mm in length needle then I injected 10 ml of Ropivacaine 0.5 % mixed with 30 mg Depo-injected in this fascial plain between these 2 muscles. Then after that the genitofemoral nerve block done using 21-gauge needle, flaco [place] at the location of the right genitofemoral nerve and total of 5 ML of ropivacaine 0.5% mixed with 30 mg of Depo-Medrol injected after negative aspiration, Patient tolerated the procedure well without any complications ,and he will follow up in the pain clinic in a few weeks
[2024-08-16 08:07] VITALS: RESP 18
[2024-08-16 08:21] VITALS: BP 111/73; PULSE 68
== END 2024-08-16 08:30 | disposition home or self-care (01) ==
LOC: ORPAIN 06:28
PROVIDERS: ATTEND Specialist
DX: G58.8 Other specified mononeuropathies (principal)
CPT/HCPCS: 64425; J2795; J1010

== ENCOUNTER → 2024-09-11 | Outpatient (CLI) | payer OTHER ==
[2024-09-11 08:41] VITALS: RESP 16; TEMP 97.1
[2024-09-11 08:46] VITALS: BP 126/85; PULSE 77
--- NOTE | 2024-09-11 15:25 | P.PAINPG ---
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 Pt states he experienced 50 % pain relief x 3 wks s/p procedure. Pain level is currently at 6 /10 in intensity, intermittent, localized in the R inner groin, sharp/ stabbing in character w occasional shooting towards the R groin, hip and inner thigh. Pain is provoked by walking for periods of 5 min or more. Pain is alleviated with injections, meds, topicals, home stretching regimen every morning since Mar 2022, repositioning and rest. Interventional pain procedures completed include R ilioinguinal/genitofemoral x6 (since Apr 2022), R ilioinguinal/ Iliohypogastric x1 (Apr 2023, Jan 2024) Patient is currently on Percocet, Zanaflex, Mobic, Lidoderm Patient denies any side effects of the medication(s), denies excessive drowsiness or sleepiness, denies suicidal ideation and reports that the current pain medication is helping to control the pain and improve activities of daily living. Patient denies any motor or sensory deficits. Patient denies any fever or night sweats, denies any change in the bowel movements or urination. Physical Examination: -Constitutional: Cooperative. Not in acute distress . - Neurologic: Cranial nerve II to XII intact. No focal neurological deficits. - Psychatric: Alert & oriented x 3. Matching mood & appropriate affect. Judgment and insight intact. - Musculoskeletal: Cervical spine: Muscle bulk/ tone/ strength in the bilateral upper extremities normal Vertebral body tenderness to palpation over Spurling test positive Distraction test positive Facet loading test positive Thoracic spine Muscle bulk / tone/ strength in the bilateral paraspinal muscles normal Vertebral body tender to palpation over Facet loading test positive Lumbar spine: Abd RLQ/ R groin TTP Motor bulk/ tone/ strength lower extremities , thigh and legs : 5/5 Deep tendon reflexes : Normal Knee Jerk. Normal Ankle Jerk . Vertebral body tenderness to palpation over Lumbar Facet Loading Test positive Straight Leg Raise: positive at 30 degrees right side/ left side Gaenslen's Test positive Sacral spine : Severe tenderness over the Sacroiliac joint: right side / left side Range of motion: Flexion of the lumbar spine <60 degrees Range of motion: Extension of the lumbar spine <20 degrees Gaenslen's Test positive Ana test: positive right side / left side Thigh Thrust Test Sacral Thrust Test Assessment and plan: Chronic R inguinal pain secondary to ilioinguinal/ genitofemoral/ iliohypogastric neuralgia Recommendation of R ilioinguinal/genitofemoral #4. Risks, benefits of procedure discussed and patient verbalized understanding. Protocol for discontinuation/continuation of medication surrounding procedure discussed. All patient questions answered I have spent less than 30 minutes on patient care today. Dr Schaffer was available by phone for the evaluation of this patient. The time was used to review the medical records including relevant urine studies and Prescription history (MAPs), review of the available imaging, evaluation and examination of the patient, coordination of care with the medical staff and if applicable referring physicians, as well as creation of the medical record - Pain Location Bilateral Groin Non-Pharmacological Interventions: Heat, Ice, Inactivity, Position/Reposition, Relaxation Technique, Sitting, Standing Pharmacological Interventions: Block, PRN Medication, Scheduled Medication, Topical Medication PQRS Narrative: Smoking Status Current every day smoker Hx Alcohol Use (MH) Yes: RARE. Home Medications: Ambulatory Orders Topiramate 50 mg PO BID 10/30/16 oxyCODONE HCL [oxyCODONE HCL (IR)] 10 mg PO BID 06/26/17 Atorvastatin [Lipitor] 40 mg PO HS 10/16/20 [place]/APAP/Caf/Cod 37-891-50-30 [Fioricet w/Cod 03-492-17-30MG] 1 cap PO DAILY PRN 10/16/20 Cholecalciferol [Vitamin D3 (25 Mcg = 1000 Iu)] 50 mcg PO DAILY 10/16/20 FLUoxetine HCL [PROzac] 20 mg PO DAILY 10/16/20 Fluticasone Nasal [place] [Flonase Nasal [place]] 1 spray EA NOSTRIL DAILY PRN 10/16/20 Loratadine [Claritin] 10 mg PO DAILY 10/16/20 Meloxicam [Mobic] 15 mg PO DAILY 10/16/20 metFORMIN HCL [Glucophage] 500 mg PO BID 10/16/20 Galcanezumab-Gnlm [Emgality Pen] 120 mg SQ Q30D 12/10/20 Hydrocortisone Cream [Hydrocortisone 1% Cream] 1 applic TOPICAL DAILY PRN 07/23/21 Pantoprazole Sodium [Protonix] 20 mg PO DAILY 07/26/21 Lidocaine 4% Cream [Lmx 4] 1 applic TOPICAL QAM PRN 30 Days #1 kit 04/04/22 tiZANidine HCL [Zanaflex] 4 mg PO TID PRN 10/12/22 Rimegepant Sulfate [Nurtec Odt] 75 mg PO Q48H PRN 04/20/23 diazePAM [Valium] 5 mg PO DAILY 1 Days #2 tab 09/11/24 Controlled Substance Measures - Controlled Substance Measures Is patient prescribed a controlled substance at discharge?: Yes When asked, does pt state using other controlled substances?: No If prescribed controlled substance>3 days was MAPS reviewed?: Prescribed <3 Days
== END ==
LOC: PNWHC3 08:22
PROVIDERS: ATTEND Specialist
DX: G57.81 Other specified mononeuropathies of right lower limb (principal); F12.90 Cannabis use, unspecified, uncomplicated; F17.210 Nicotine dependence, cigarettes, uncomplicated; Z88.6 Allergy status to analgesic agent; Z88.1 Allergy status to other antibiotic agents; Z88.5 Allergy status to narcotic agent; Z91.011 Allergy to milk products; Z91.013 Allergy to seafood; Z88.0 Allergy status to penicillin; Z91.048 Other nonmedicinal substance allergy status; Z88.8 Allergy status to other drugs, medicaments and biological substances
CPT/HCPCS: 99211

== ENCOUNTER → 2024-09-27 | Day surgery (SDC) | payer OTHER ==
[~2024-09-27] MED LIST changes: +DEXAMETHASONE SOD PHOSPHATE 10 MG/ML 1 ML VIAL ONE; +ROPIVACAINE 5MG/ML 20ML VIAL ONE
[2024-09-27 09:28] LABS: Glucose,Whole Blood 108 mg/dL (70-110)
[2024-09-27 09:32] VITALS: TEMP 97.7
[2024-09-27 11:16] VITALS: RESP 18
--- NOTE | 2024-09-27 11:18 | P.PCN ---
Description of Procedure: Procedure diagnosis. Ilioinguinal and iliohypogastric neuropathy. Postprocedure diagnosis. As above. Procedure done. right ilioinguinal and iliohypogastric perineural injection with local anesthetics and steroid under ultrasound guidance. Anesthesia. Local anesthetic infiltration. Continuous pulse ox, EKG, blood pressure and verbal communication was maintained with the patient in OR. Blood loss. None. Indication. Discussed with the patient about the procedure, alternatives and complications which may include infection, bleeding, nerve damage, hematoma all of which could be permanent. Patient understands and all questions were answered. Procedure note. After getting consent patient in OR in supine position. After prepping with chlorhexidine and draping, high-frequency flat ultrasound probe was placed with 1 and just over the anterior superior iliac spine and the other and directed toward the umbilicus. The probe was moved more into the abdominal wall to distinctly identify external, internal, transversus abdominis muscle layers. After injecting 3 cc of plain 1% lidocaine's subcutaneously, 21-gauge pajunc needle was introduced from medial to lateral, in plane technique, needle was between internal oblique and transversus abdominis muscle layers. Color Doppler was used to identify any blood vessel. After negative aspiration 8 cc solution was injected intermittently with aspirations in between which consists of 6 cc of 0.5% ropivacaine mixed with 2 cc of 20 mg Decadron. Preprocedure diagnosis. Genitofemoral neuropathy. Postprocedure diagnosis. As above. Procedure done. right genital branch of the genitofemoral perineural injection with local anesthetic and steroid under ultrasound guidance. Anesthesia. Local infiltration with 3 mL of 1% lidocaine. In OR, continuous pulse ox, EKG, blood pressure and verbal communication was maintained with the patient. Blood loss. None. Indication. Discussed the procedure, alternatives and possible complications which may include infection bleeding nerve damage paralysis aggravation of pain all of which could be permanent. Patient understands and all questions were answered. Procedure note. After getting consent patient in OR in supine position. After prepping with chlorhexidine and draping, high-frequency flat ultrasound probe was introduced to identify femoral artery in the groin area. Ultrasound probe was made from horizontal to vertical along the long axis of the femoral artery. Femoral artery in long axis was followed proximally when it curves deeper towards the external iliac artery. At that point the ultrasound probe was made horizontal and spermatic cord was identified. A 21-gauge pajunk needle was introduced under ultrasound guidance just on the outer side of the spermatic cord and after negative aspiration intermittently total 4 mL solution was injected which consists of 2 mL of 0.5% ropivacaine mixed with 2 mL of 20 mg dexamethasone. Color Doppler was used to identify any vascular structure. Disposition. Patient tolerated the procedure well. No complication. Discharged home in stable condition.
[2024-09-27 11:34] VITALS: BP 100/76; PULSE 70
== END ==
LOC: ORPAIN 08:33
PROVIDERS: ATTEND Pain Medicine Interventional Pain Medicine
DX: G57.81 Other specified mononeuropathies of right lower limb (principal); R10.31 Right lower quadrant pain; R10.813 Right lower quadrant abdominal tenderness
CPT/HCPCS: 64425; J1100; J2795

== ENCOUNTER → 2024-10-24 | Outpatient (CLI) | payer OTHER ==
[2024-10-24 10:10] VITALS: BP 110/77; PULSE 84; RESP 16; TEMP 97.1
--- NOTE | 2024-10-24 15:41 | P.PAINPG ---
Objective - Vital Signs Vital signs: Vital Signs Temp 97.1 F L 10/24/24 10:04 Pulse 84 10/24/24 10:04 Resp 16 10/24/24 10:04 BP 110/77 10/24/24 10:04 Pulse Ox 98 10/24/24 10:04 FiO2 Intake & Output 10/23/24 10/24/24 10/24/24 18:59 06:59 18:59 Weight 94.801 kg PQRS Measure Charge Sheet Mode of Arrival: Ambulatory Comment: A 54 yr old male with a history of severe and chronic inguinal pain secondary t o ilioinguinal and genitofemoral neuralgia presents today for evaluation s/p R ilioinguinal/iliohypogastric #3. Pt states he experienced 50 % pain relief x 3 wks s/p procedure. Pain level is currently at 1 /10 in intensity, intermittent, localized in the R inner groin, sharp/ stabbing in character w occasional shooting towards the R groin, hip and inner thigh. Pain is provoked by walking for periods of 5 min or more. Pain is alleviated with injections, meds, topicals, home stretching regimen every morning since Mar 2022, use of a cane, repositioning and rest. Interventional pain procedures completed include R ilioinguinal/genitofemoral x6 (since Apr 2022), R ilioinguinal/ Iliohypogastric x3 (Apr 2023, Jan 2024, Sep 2023) Patient is currently on Percocet, Zanaflex, Mobic, Lidoderm Patient denies any side effects of the medication(s), denies excessive drowsiness or sleepiness, denies suicidal ideation and reports that the current pain medication is helping to control the pain and improve activities of daily living. Patient denies any motor or sensory deficits. Patient denies any fever or night sweats, denies any change in the bowel movements or urination. Physical Examination: -Constitutional: Cooperative. Not in acute distress . - Neurologic: Cranial nerve II to XII intact. No focal neurological deficits. - Psychatric: Alert & oriented x 3. Matching mood & appropriate affect. Judgment and insight intact. - Musculoskeletal: Cervical spine: Muscle bulk/ tone/ strength in the bilateral upper extremities normal Vertebral body tenderness to palpation over Spurling test positive Distraction test positive Facet loading test positive Thoracic spine Muscle bulk / tone/ strength in the bilateral paraspinal muscles normal Vertebral body tender to palpation over Facet loading test positive Lumbar spine: Abd RLQ/ R groin TTP Motor bulk/ tone/ strength lower extremities , thigh and legs : 5/5 Deep tendon reflexes : Normal Knee Jerk. Normal Ankle Jerk . 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 All patient questions answered I have spent less than 30 minutes on patient care today. Dr Schaffer was available by phone for the evaluation of this patient. The time was used to review the medical records including relevant urine studies and Prescription history (MAPs), review of the available imaging, evaluation and examination of the patient, coordination of care with the medical staff and if applicable referring physicians, as well as creation of the medical record - Pain Location Groin Non-Pharmacological Interventions: Heat, Inactivity, Position/Reposition, Relaxation Technique Pharmacological Interventions: Block, PRN Medication, Scheduled Medication, Top ical Medication PQRS Narrative: Smoking Status Current every day smoker Blood Pressure 110/77 Pain Intensity [Groin] 5 Scale Used Numeric (1 - 10) Hx Alcohol Use (MH) Yes: RARE. Home Medications: Ambulatory Orders Topiramate 50 mg PO BID 10/30/16 oxyCODONE HCL [oxyCODONE HCL (IR)] 10 mg PO BID 06/26/17 Atorvastatin [Lipitor] 40 mg PO HS 10/16/20 [place]/APAP/Caf/Cod 50-760-52-30 [Fioricet w/Cod 69-488-80-30MG] 1 cap PO DAILY PRN 10/16/20 Cholecalciferol [Vitamin D3 (25 Mcg = 1000 Iu)] 50 mcg PO DAILY 10/16/20 FLUoxetine HCL [PROzac] 20 mg PO DAILY 10/16/20 Fluticasone Nasal [place] [Flonase Nasal [place]] 1 spray EA NOSTRIL DAILY PRN 10/16/20 Loratadine [Claritin] 10 mg PO DAILY 10/16/20 metFORMIN HCL [Glucophage] 500 mg PO BID 10/16/20 Galcanezumab-Gnlm [Emgality Pen] 120 mg SQ Q30D 12/10/20 Hydrocortisone Cream [Hydrocortisone 1% Cream] 1 applic TOPICAL DAILY PRN 07/23/21 Pantoprazole Sodium [Protonix] 20 mg PO DAILY 07/26/21 Lidocaine 4% Cream [Lmx 4] 1 applic TOPICAL QAM PRN 30 Days #1 kit 04/04/22 tiZANidine HCL [Zanaflex] 4 mg PO TID PRN 10/12/22 Rimegepant Sulfate [Nurtec Odt] 75 mg PO Q48H PRN 04/20/23 diazePAM [Valium] 5 mg PO DAILY 1 Days #2 tab 09/11/24 Controlled Substance Measures - Controlled Substance Measures Is patient prescribed a controlled substance at discharge?: No
== END ==
LOC: PNWHC3 09:55
PROVIDERS: ATTEND Anesthesiology
DX: M79.2 Neuralgia and neuritis, unspecified (principal); F17.200 Nicotine dependence, unspecified, uncomplicated; Z88.6 Allergy status to analgesic agent; Z88.1 Allergy status to other antibiotic agents; Z88.0 Allergy status to penicillin; Z88.5 Allergy status to narcotic agent; Z91.011 Allergy to milk products; Z91.013 Allergy to seafood; Z91.018 Allergy to other foods; Z88.8 Allergy status to other drugs, medicaments and biological substances; Z91.048 Other nonmedicinal substance allergy status
CPT/HCPCS: 99211

== ENCOUNTER → 2024-12-26 | Outpatient (CLI) | payer OTHER ==
[2024-12-26 19:18] LABS: Basophils # (A) 0.03 X 10*3/uL (0.00-0.10); Basophils % (A) 0.6 %; Eosinophils # (A) 0.06 X 10*3/uL (0.04-0.35); Eosinophils % (A) 1.2 %; HCT 44.0 % (39.6-50.0); HGB 14.3 g/dL (13.0-17.0); Immature Grans, Automated 0.40 %; Lymphocytes # (A) 1.75 X 10*3/uL (0.90-5.00); Lymphocytes % (A) 34.7 %; MCH 31.5 pg (27.0-32.0); MCHC 32.5 g/dL (32.0-37.0); MCV 96.9 FL (80.0-97.0); Monocytes # (A) 0.43 X 10*3/uL (0.20-1.00); Monocytes % (A) 8.5 %; NRBC Per 100 WBC 0 X 10*3/uL (0.00-0.01); Neutrophils # (A) 2.75 X 10*3/uL (1.80-7.70); Neutrophils % (A) 54.6 %; Platelet Count 231 X 10*3/uL (140-440); RBC 4.54 X 10*6/uL (4.40-5.60); RDW 13.4 % (11.5-14.5); WBC 5.04 X 10*3/uL (4.50-10.00)
[2024-12-26 19:47] LABS: Albumin 4.6 g/dL (3.8-4.9); Anion Gap 12.90 mmol/L (4.00-12.00); BUN/Creat Ratio 12.70 Ratio (12.00-20.00); Blood Urea Nitrogen 12.7 mg/dL (9.0-27.0); Calcium 9.7 mg/dL (8.7-10.3); Carbon Dioxide 22.1 mmol/L (21.6-31.8); Chloride 105 mmol/L (96-109); Ferritin 36.7 ng/mL (22.0-322.0); Glucose 102 mg/dL (70-110); Iron 72 UG/DL (65-175); Magnesium 1.9 mg/dL (1.5-2.4); Potassium 4.2 mmol/L (3.5-5.5); Sodium 140 mmol/L (135-145); Total Iron Binding Capacity 392 UG/DL (228-460); Uric Acid 5.1 mg/dL (3.7-8.7)
[2024-12-26 21:53] LABS: Anti-DNA, DS unit <1.0 IU/mL; DNA Double-Stranded Negative (Negative)
[2024-12-27 10:27] LABS: Free Kappa Lt Chain Qnt, Serum 0.99 mg/dL (0.33-1.94); Free Lambda Lt Chain Qnt, Seru 0.89 mg/dL (0.57-2.63)
[2024-12-27 12:36] LABS: C-ANCA <1:20 Titer (<1:20)
== END | disposition home or self-care (01) ==
LOC: LABWHC1 16:11
PROVIDERS: ATTEND Internal Medicine Nephrology
DX: E55.9 Vitamin D deficiency, unspecified (principal); N25.81 Secondary hyperparathyroidism of renal origin; M10.9 Gout, unspecified; D64.9 Anemia, unspecified; R80.9 Proteinuria, unspecified
CPT/HCPCS: 36415; 80048; 82040; 82306; 82728; 83516; 83540; 83550; 83735; 83883; 83970; 84100; 84550; 85025; 86038; 86160; 86162; 86225; 86255; 86334